=== PATIENT | female | born 1980 | race Two or more races ===

== ENCOUNTER 2017-03-13 13:23 | Inpatient (IN) | payer OTHER ==
[2017-03-13 14:00] VITALS: BMI 19.5
--- NOTE | 2017-03-13 15:45 | HP ---
COWS - Scale Resting Pulse: 2= [place] 101-120 Sweatin=Flushed/Facial Moisture Restless Observation: 3= Extraneous Movement Pupil Size: 2= Moderately Dilated Bone or Joint Aches: 2= Severe Diffuse Aches Runny Nose/ Eye Tearin= Runny Nose/Eyes GI Upset > 30mins: 2= Nausea/Diarrhea Tremor Observation: 2= Slight Tremor Visible Yawning Observation: 1= 1-2x During Session Anxiety or Irritability: 2=Irritable/Anxious Goose Flesh Skin: 3=Piloerection COWS Score: 23 Admission ROS S - HPI Chief Complaint: Withdrawal sx. Allergies/Adverse Reactions: Allergies Allergy/AdvReac Type Severity Reaction Status Date / Time No Known Allergies Allergy Verified 03/13/17 14:12 History of Present Illness: 36 y/o woman with a long hx. of heroin dependence is admitted for detox. Pt. has been in previous detox denies significant period drug free. Exam Limitations: No Limitations - Ebola screening Have you traveled outside of the country in the last 21 days: No Have you had contact with anyone from an Ebola affected area: No Have you been sick,other than usual withdrawal symptoms: No Do you have a fever: No - Review of Systems Constitutional: Diaphoresis EENT: reports: Nose Congestion Respiratory: reports: No Symptoms reported Cardiac: reports: No Symptoms Reported GI: reports: Nausea, Abdominal cramping Musculoskeletal: reports: Back Pain, Joint Pain, Muscle Pain Integumentary: reports: Sweating Neuro: reports: Tingling, Tremors Endocrine: reports: No Symptoms Reported Hematology: reports: No Symptoms Reported Psychiatric: reports: No Sypmtoms Reported Other Systems: Reviewed and Negative Patient History - Patient Medical History Hx Anemia: No Hx Asthma: Yes Hx Chronic Obstructive Pulmonary Disease (COPD): No Hx Cancer: No Hx Cardiac Disorders: No Hx Congestive Heart Failure: No Hx Hypertension: No Hx Hypercholesterolemia: No Hx Pacemaker: No HX Cerebrovascular Accident: No Hx Seizures: No Hx Dementia: No Hx Diabetes: No Hx Gastrointestinal Disorders: No Hx Liver Disease: No Hx Genitourinary Disorders: No Hx Sexually Transmitted Disorders: No Hx Renal Disease (ESRD): No Hx Thyroid Disease: No Hx Human Immunodeficiency Virus (HIV): No Hx Hepatitis C: No Hx Depression: Yes Hx Suicide Attempt: No Hx Schizophrenia: No - Patient Surgical History Past Surgical History: Yes Hx Neurologic Surgery: No Hx Cataract Extraction: No Hx Cardiac Surgery: No Hx Lung Surgery: No Hx Breast Surgery: No Hx Breast Biopsy: No Hx Abdominal Surgery: No Hx Appendectomy: No Hx Cholecystectomy: No Hx Genitourinary Surgery: No Hx Section: No Hx Orthopedic Surgery: No Other Surgical History: appendectomy at age 29,incision and drainage of abscess of right bartholin Anesthesia Reaction: No - PPD History Previous Implant?: Yes Documented Results: Negative w/proof Implanted On Prior [facility] Admission?: Yes Date: 08/21/14 Results: 0 MM PPD to be Administered?: Yes - Reproductive History Patient is a Female of Child Bearing Age (11 -55 yrs old): Yes Last Menstrual Period: 03/08/17 Patient : No - Smoking Cessation Smoking history: Current every day smoker Have you smoked in the past 12 months: Yes Aproximately how many cigarettes per day: 10 Cigars Per Day: 0 Hx Chewing Tobacco Use: No Initiated information on smoking cessation: Yes 'Breaking Loose' booklet given: 03/13/17 - Substance & Tx. History Hx Alcohol Use: No Hx Substance Use: Yes Substance Use Type: Cocaine, Heroin Hx Substance Use Treatment: Yes (Detox) - Substances Abused Heroin Route: Inhalation Frequency: Daily Amount used: 10 BAGS Age of first use: 24 Date of Last Use: 03/12/17 Cocaine Route: Inhalation Frequency: Daily Amount used: 3 BAGS Age of first use: 17 Date of Last Use: 03/11/17 Alcohol Route: Oral Frequency: Daily Amount used: Beer 2-3(6packs) Age of first use: 16 Date of Last Use: 03/12/17 Benzodiazepine (Klonopin) Route: Oral Frequency: Daily Amount used: 3mg Age of first use: 19 Date of Last Use: 03/11/17 Family Disease History - Family Disease History Family Disease History: Diabetes: Grandparent, Heart Disease: Grandparent, Mother (asthma,SC,HTN), Respiratory: Mother Admission Physical Exam S - Vital Signs Vital Signs: Vital Signs - 24 hr 03/13/17 13:55 Temperature 97 F L Pulse Rate 109 H Respiratory 20 Rate Blood Pressure 141/83 - Physical General Appearance: Yes: Tremorous, Irritable, Sweating, Anxious HEENTM: Yes: Nasal Congestion, Rhinorrhea Respiratory: Yes: Chest Non-Tender, Lungs Clear, Normal Breath Sounds Neck: Yes: Supple Breast: Yes: Breast Exam Deferred Cardiology: Yes: Regular Rhythm, Regular Rate, S1, S2 Abdominal: Yes: Normal Bowel Sounds, Non Tender, Flat, Soft Genitourinary: Yes: Within Normal Limits Back: Yes: Within Normal Limits Musculoskeletal: Yes: full range of Motion, Muscle Pain Extremities: Yes: Tremors, Other (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) Neurological: Yes: Fully Oriented, Alert Integumentary: Yes: Within Normal Limits Lymphatic: Yes: Within Normal Limits - Diagnostic (1) Bronchial asthma Current Visit: Yes Status: Acute Qualifiers: Asthma severity: mild intermittent Asthma complication type: uncomplicated Qualified Code(s): J45.20 - Mild intermittent asthma, uncomplicated (2) Opioid dependence with withdrawal Current Visit: Yes Status: Acute (3) Alcohol dependence with uncomplicated withdrawal Current Visit: Yes Status: Acute (4) Sedative, hypnotic or anxiolytic dependence with withdrawal, uncomplicated Current Visit: Yes Status: Acute (5) Cocaine dependence, uncomplicated Current Visit: Yes Status: Acute Cleared for Admission [facility] - Detox or Rehab [facility] Level of Care: Medically Managed Detox Regimen/Protocol: Methadone/Valium [facility] Breath Alcohol Content Breath Alcohol Content: 0 Urine Pregancy Test - Result Urine Test Results: Negative- NO Line Present Urine Drug Screen - Results Drug Screen Negative: No Urine Drug Screen Results: DARIO-Cocaine, OPI-Opiates, TCA-Tricyclic Antidepress
--- NOTE | 2017-03-13 16:03 | PN ---
Xital Signs Vital Signs: Vital Signs - 24 hr 03/13/17 13:55 Temperature 97 F L Pulse Rate 109 H Respiratory 20 Rate Blood Pressure 141/83 COWS - Scale Resting Pulse: 2= [place] 101-120 Sweatin=Flushed/Facial Moisture Restless Observation: 3= Extraneous Movement Pupil Size: 2= Moderately Dilated Bone or Joint Aches: 2= Severe Diffuse Aches Runny Nose/ Eye Tearin= Runny Nose/Eyes GI Upset > 30mins: 2= Nausea/Diarrhea Tremor Observation: 2= Slight Tremor Visible Yawning Observation: 1= 1-2x During Session Anxiety or Irritability: 2=Irritable/Anxious Goose Flesh Skin: 3=Piloerection COWS Score: 23 CIWA Score - CIWA Score Nausea/Vomitin Muscle Tremors: 4-Moderate,w/Arms Extend Anxiety: 4-Mod. Anxious/Guarded Agitation: 4-Moderately Restless Paroxysmal Sweats: 3 Orientation: 0-Oriented Tacttile Disturbances: 0-None Auditory Disturbances: 0-None Visual Disturbances: 0-None Headache: 0-None Present CIWA-Ar Total Score: 17 Medical/Surgical History - Patient Medical History Hx Anemia: No Hx Asthma: Yes Hx Chronic Obstructive Pulmonary Disease (COPD): No Hx Cancer: No Hx Cardiac Disorders: No Hx Congestive Heart Failure: No Hx Hypertension: No Hx Hypercholesterolemia: No Hx Pacemaker: No HX Cerebrovascular Accident: No Hx Seizures: No Hx Dementia: No Hx Diabetes: No Hx Gastrointestinal Disorders: No Hx Liver Disease: No Hx Genitourinary Disorders: No Hx Sexually Transmitted Disorders: No Hx Renal Disease (ESRD): No Hx Thyroid Disease: No Hx Human Immunodeficiency Virus (HIV): No Hx Hepatitis C: No Hx Depression: Yes Hx Suicide Attempt: No Hx Schizophrenia: No - Patient Surgical History Past Surgical History: Yes Hx Neurologic Surgery: No Hx Cataract Extraction: No Hx Cardiac Surgery: No Hx Lung Surgery: No Hx Breast Surgery: No Hx Breast Biopsy: No Hx Abdominal Surgery: No Hx Appendectomy: No Hx Cholecystectomy: No Hx Genitourinary Surgery: No Hx Section: No Hx Orthopedic Surgery: No Other Surgical History: appendectomy at age 29,incision and drainage of abscess of right bartholin Anesthesia Reaction: No - Substances Abused Heroin Route: Inhalation Frequency: Daily Amount used: 10 BAGS Age of first use: 24 Date of Last Use: 03/12/17 Cocaine Route: Inhalation Frequency: Daily Amount used: 3 BAGS Age of first use: 17 Date of Last Use: 03/11/17 Alcohol Route: Oral Frequency: Daily Amount used: Beer 2-3(6packs) Age of first use: 16 Date of Last Use: 03/12/17 Benzodiazepine (Klonopin) Route: Oral Frequency: Daily Amount used: 3mg Age of first use: 19 Date of Last Use: 03/11/17 [facility] Breath Alcohol Content Breath Alcohol Content: 0 Urine Drug Screen - Results Drug Screen Negative: No Urine Drug Screen Results: DARIO-Cocaine, OPI-Opiates, TCA-Tricyclic Antidepress Urine Pregancy Test - Result Urine Test Results: Negative- NO Line Present
[2017-03-13] MEDS ORDERED: diazePAM 5 MG TABLET PO ONE (16:08)
[2017-03-13] MEDS ORDERED: MAGNESIUM HYDROX 2400MG/30ML ORAL SUSPENSION 30 ML CUP PO PRN (16:08)
[2017-03-13] MEDS ORDERED: guaiFENesin/D-METHORPHAN HB 10 ML UNIT-DOSE CUPS PO PRN (16:08)
[2017-03-13] MEDS ORDERED: ACETAMINOPHEN 325 MG TABLET (FP) PO PRN (16:08)
[2017-03-13] MEDS ORDERED: IBUPROFEN 400 MG TABLET (FP) PO PRN (16:08)
[2017-03-13] MEDS ORDERED: MENTHOL/PHENOL 1 EACH UD MM PRN (16:08)
[2017-03-13] MEDS ORDERED: MAGNESIUM CITRATE 300 ML BOTTLE PO PRN (16:08)
[2017-03-13] MEDS ORDERED: METHADONE HCL 10 MG TABLET (FOR DETOX USE ONLY) PO ONE ×2 (16:08→23:00)
[2017-03-13] MEDS ORDERED: P-EPHED 60MG/TRIPROLIDI 2.5MG TABLET PO PRN (16:08)
[2017-03-13] MEDS ORDERED: hydrOXYzine PAMOATE 50 MG CAPSULE (FP) PO PRN (16:08)
[2017-03-13] MEDS ORDERED: LOPERAMIDE HCL 2 MG CAPSULE PO PRN (16:08)
[2017-03-13] MEDS ORDERED: ALBUTEROL SO4 6.7 GM HFA INHALER IH PRN (16:16)
[2017-03-13] MEDS: NICOTINE 21 MG/24 HOURS TOPICAL PATCH TD SCH (17:13)
[2017-03-13 18:15] LABS: URINE APPEARANCE SLCLOUDY; URINE BILIRUBIN NEGATIVE (NEGATIVE); URINE BLOOD NEGATIVE (NEGATIVE); URINE COLOR STRAW; URINE GLUCOSE (UA) NEGATIVE (NEGATIVE); URINE KETONE NEGATIVE (NEGATIVE); URINE LEUK ESTERASE NEGATIVE (NEGATIVE); URINE NITRITE NEGATIVE (NEGATIVE); URINE PROTEIN NEGATIVE (NEGATIVE); URINE UROBILINOGEN NEGATIVE E.U./dl (0.2-1.0)
[2017-03-13] MEDS ORDERED: BACITRACIN 30 GM TUBE TOPICAL OINTMENT TP SCH (22:00)
[2017-03-13] MEDS: THIAMINE HCL 100 MG TABLET (FP) PO SCH (22:07)
[2017-03-13] MEDS: diazePAM 5 MG TABLET PO SCH (22:07)
[2017-03-13] MEDS: diphenhydrAMINE HCL 50 MG CAPSULE PO PRN (22:07)
[2017-03-13] MEDS ORDERED: BACITRACIN 0.9 GM PACKET ONE (22:10)
[2017-03-14] MEDS: diazePAM 5 MG TABLET PO PRN ×3 (02:06→17:42)
[2017-03-14] MEDS: diphenhydrAMINE HCL 50 MG CAPSULE PO PRN (02:06)
[2017-03-14] MEDS: diazePAM 5 MG TABLET PO SCH ×3 (05:02→22:36)
--- NOTE | 2017-03-14 08:59 | EKG ---
Test Reason : Blood Pressure : / mmHG Vent. Rate : 107 BPM Atrial Rate : 107 BPM P-R Int : 118 ms QRS Dur : 078 ms QT Int : 328 ms P-R-T Axes : 067 058 023 degrees QTc Int : 437 ms SINUS TACHYCARDIA POSSIBLE LEFT ATRIAL ENLARGEMENT BORDERLINE ECG NO PREVIOUS ECGS AVAILABLE Confirmed by YARELY VYAS, GABI ([id number]) on 03/14/2017 8:58:27 AM Referred By: Confirmed By:GABI PRITCHETT MD
[2017-03-14] MEDS ORDERED: METHADONE HCL 10 MG TABLET (FOR DETOX USE ONLY) PO SCH (10:00)
[2017-03-14 10:01] LABS: MCH 31.2 pg (25.7-33.7); MCHC 33.6 g/dl (32.0-36.0); MEAN CELL VOLUME 92.8 fl (80-96); MEAN PLT VOLUME 8.4 fl (7.5-11.1); PLATELET COUNT 214 K/MM3 (134-434); RDW 13.8 % (11.6-15.6); WHITE BLOOD COUNT 8.6 K/mm3 (4.0-10.0)
[2017-03-14] MEDS: PRENATAL VITAMINS W/ FOLIC ACID TABLET (FP) PO SCH (10:13)
[2017-03-14] MEDS: NICOTINE 21 MG/24 HOURS TOPICAL PATCH TD SCH (10:13)
[2017-03-14] MEDS: BACITRACIN 0.9 GM PACKET TP SCH ×4 (10:14→22:36)
[2017-03-14] MEDS: QUEtiapine FUMARATE 50 MG TABLET PO SCH ×2 (10:18→22:26)
[2017-03-14 10:21] LABS: CALCIUM 8.6 mg/dL (8.5-10.1)
[2017-03-14] MEDS: HALOPERIDOL 5 MG TABLET (FP) PO PRN (10:21)
[2017-03-14] MEDS: NICOTINE POLACRILEX 2 MG GUM BC PRN (10:22)
[2017-03-14 10:27] LABS: ALBUMIN 3.5 g/dl (3.4-5.0); ALK PHOS 76 U/L (45-117); ANION GAP 7 (8-16); BILIRUBIN,TOTAL 0.3 mg/dL (0.2-1.0); CO2 30 mmol/L (21-32); CREATININE 0.6 mg/dL (0.55-1.02); GLUCOSE,RANDOM 71 mg/dL (74-106); SGOT/AST 11 U/L (15-37); SGPT/ALT 18 U/L (12-78); TOT PROT 6.3 g/dl (6.4-8.2)
--- NOTE | 2017-03-14 10:54 | PN ---
BHS COWS - Scale Resting Pulse: 1= [place] 81-100 Sweatin=Flushed/Facial Moisture Restless Observation: 1= Difficult to Sit Still Pupil Size: 1= Pupils >than Normal Bone or Joint Aches: 2= Severe Diffuse Aches Runny Nose/ Eye Tearin= Nasal Congestion GI Upset > 30mins: 2= Nausea/Diarrhea Tremor Observation of Outstretched Hands: 1= Tremor [place], Not Seen Yawning Observation: 0= None Anxiety or Irritability: 2=Irritable/Anxious Goose Flesh Skin: 0=Smooth Skin COWS Score: 13 BHS Progress Note (SOAP) Subjective: interrupted sleep, sweats , shakes , bidyaches, lbp, nausea, siarrhea, itchy rash over face chest , back Objective: 03/14/17 10:50 Vital Signs Temperature 98.1 F 03/14/17 09:52 Pulse Rate 86 03/14/17 09:52 Respiratory Rate 18 03/14/17 09:52 Blood Pressure 131/70 03/14/17 09:52 O2 Sat by Pulse Oximetry (%) Laboratory Tests 03/13/17 03/14/17 03/14/17 18:00 07:00 07:00 WBC 8.6 RBC 4.00 Hgb 12.5 Hct 37.1 MCV 92.8 MCHC 33.6 RDW 13.8 Plt Count 214 MPV 8.4 Sodium 140 Potassium 4.1 Chloride 103 Carbon Dioxide 30 Anion Gap 7 L BUN 13 Creatinine 0.6 D Creat Clearance w eGFR > 60 Random Glucose 71 L D Calcium 8.6 Total Bilirubin 0.3 D AST 11 L D ALT 18 Alkaline Phosphatase 76 D Total Protein 6.3 L Albumin 3.5 Urine Color Straw Urine Appearance Slcloudy Urine pH 5.0 Ur Specific [place] 1.025 Urine Protein Negative Urine Glucose (UA) Negative Urine Ketones Negative Urine Blood Negative Urine Nitrite Negative Urine Bilirubin Negative Urine Urobilinogen Negative Ur Leukocyte Esterase Negative pt aox3 in nad ambualting skin papules over face, chest , back Assessment: 03/14/17 10:51 withdrawal sx's rash Plan: cont. detox increase fluids vistaril 50mg q6h check rpr zofran prn flexeril 10mg tid /prn
--- NOTE | 2017-03-14 11:28 | CONSULT ---
[facility] Psychiatric Consult - Data Date of interview: 03/14/17 Admission source: [facility] Identifying data: This is 36 years old female with history of MDD, intoxicated with: Alcohol, Cocaine, Opioids, PCP, Xanax Substance Abuse History: - Smoking Cessation. Smoking history: Current every day smoker. Have you smoked in the past 12 months: Yes. Aproximately how many cigarettes per day: 10. Cigars Per Day: 0. Hx Chewing Tobacco Use: No. Initiated information on smoking cessation: Yes. 'Breaking Loose' booklet given : 03/13/17. - Substance & Tx. History. Hx Alcohol Use: No. Hx Substance Use: Yes. Substance Use Type: Cocaine, Heroin. Hx Substance Use Treatment: Yes ( Detox). - Substances Abused. Heroin. Route: Inhalation. Frequency: Daily. Amount used: 10 BAGS. Age of first use: 24. Date of Last Use: . Cocaine. Route: Inhalation. Frequency: Daily. Amount used: 3 BAGS. Age of first use: 17. Date of Last Use: 03/11/17. Alcohol. Route: Oral. Frequency: Daily. Amount used: Beer 2-3(6packs). Age of first use: 16. Date of Last Use: 03/12/17. Benzodiazepine (Klonopin). Route: Oral. Frequency: Daily. Amount used: 3mg. Age of first use: 19. Date of Last Use: 03/11/17 Medical History: Asthma, Psychiatric History: Patioent reprots history of MDD, Panic Disorder, reports taking prior to admission: Haldol 5mg poqd. Seroquel 50mg po bid. Remeron 45mg po qhs. Buspar 5mg po tid. Wellbutrin xl 300mg Physical/Sexual Abuse/Trauma History: Unclear Additional Comment: Haldol 5mg poqd. Seroquel 50mg po bid. Remeron 45mg po qhs. Buspar 5mg po tid. Wellbutrin xl 300mg Mental Status Exam - Mental Status Exam Alert and Oriented to: Person Cognitive Function: Fair Patient Appearance: Unkempt Mood: Sad Affect: Mood Congruent Patient Behavior: Cooperative Speech Pattern: Appropriate Voice Loudness: Mildly Soft/Quiet Thought Process: Goal Oriented Thought Disorder: Being Controlled Hallucinations: Denies Suicidal Ideation: Denies Homicidal Ideation: Denies Insight/Judgement: Fair Sleep: Difficulty falling asleep Appetite: Weight loss Muscle strength/Tone: Normal Gait/Station: Normal Additional Comments: Haldol 5mg poqd. Seroquel 50mg po bid. Remeron 45mg po qhs. Buspar 5mg po tid. Wellbutrin xl 300mg Psychiatric Findings - Problem List ([place] 1, 2,3) (1) Alcohol dependence with uncomplicated withdrawal Current Visit: Yes Status: Acute (2) Cocaine dependence, uncomplicated Current Visit: Yes Status: Acute (3) Opioid dependence with withdrawal Current Visit: Yes Status: Acute (4) Sedative, hypnotic or anxiolytic dependence with withdrawal, uncomplicated Current Visit: Yes Status: Acute (5) Benzodiazepine abuse Current Visit: No Status: Chronic (6) Cocaine dependence Current Visit: No Status: Chronic (7) MDD (major depressive disorder) Current Visit: No Status: Chronic (8) Nicotine dependence Current Visit: No Status: Chronic (9) Opioid dependence Current Visit: No Status: Chronic (10) PCP dependence Current Visit: No Status: Chronic (11) Panic disorder with agoraphobia Current Visit: No Status: Chronic - Initial Treatment Plan Initial Treatment Plan: Haldol 5mg poqd. Seroquel 50mg po bid. Remeron 45mg po qhs. Buspar 5mg po tid. Wellbutrin xl 300mg
[2017-03-14] MEDS ORDERED: HYDROCORTISONE 1% TOPICAL CREAM 30 GM TUBE TP PRN (11:42)
[2017-03-14] MEDS: CYCLOBENZAPRINE HCL 10 MG TABLET (FP) PO PRN (12:04)
[2017-03-14] MEDS: hydrOXYzine PAMOATE 50 MG CAPSULE (FP) PO SCH ×4 (12:05→23:12)
[2017-03-14] MEDS: busPIRone HCL 5 MG TABLET PO SCH ×2 (15:19→22:25)
[2017-03-14] MEDS: MAG HYDROX/AL HYDROX/SIMETH 30 ML UNIT-DOSE CUP PO PRN (21:32)
[2017-03-14] MEDS: MIRTAZAPINE 15 MG TABLET (FP) PO SCH (22:26)
[2017-03-14] MEDS: THIAMINE HCL 100 MG TABLET (FP) PO SCH (22:26)
[2017-03-15] MEDS: diazePAM 5 MG TABLET PO PRN ×2 (03:10→17:50)
[2017-03-15] MEDS: hydrOXYzine PAMOATE 50 MG CAPSULE (FP) PO SCH ×6 (03:11→23:07)
[2017-03-15] MEDS: busPIRone HCL 5 MG TABLET PO SCH ×3 (06:56→22:12)
[2017-03-15] MEDS: QUEtiapine FUMARATE 50 MG TABLET PO SCH ×2 (10:17→22:12)
[2017-03-15] MEDS: PRENATAL VITAMINS W/ FOLIC ACID TABLET (FP) PO SCH (10:17)
[2017-03-15] MEDS: BACITRACIN 0.9 GM PACKET TP SCH ×4 (10:17→22:14)
[2017-03-15] MEDS: diazePAM 5 MG TABLET PO SCH ×2 (10:17→22:14)
[2017-03-15] MEDS: METHADONE HCL 5 MG TABLET (FOR DETOX USE ONLY) PO SCH (10:17)
[2017-03-15] MEDS: NICOTINE 21 MG/24 HOURS TOPICAL PATCH TD SCH (10:18)
[2017-03-15] MEDS: CYCLOBENZAPRINE HCL 10 MG TABLET (FP) PO PRN ×2 (10:21→17:50)
[2017-03-15] MEDS: HALOPERIDOL 5 MG TABLET (FP) PO PRN (10:21)
[2017-03-15] MEDS: MAG HYDROX/AL HYDROX/SIMETH 30 ML UNIT-DOSE CUP PO PRN ×2 (10:23→17:52)
[2017-03-15 10:34] LABS: HIV 1 & 2 AB NEGATIVE; HIV 1 AGp24 NEGATIVE
--- NOTE | 2017-03-15 10:47 | PN ---
BHS COWS - Scale Resting Pulse: 1= [place] 81-100 Sweatin=Flushed/Facial Moisture Restless Observation: 1= Difficult to Sit Still Pupil Size: 0= Normal to Room Light Bone or Joint Aches: 1= Mild Discomfort Runny Nose/ Eye Tearin= Nasal Congestion GI Upset > 30mins: 1= Stomach Cramp Tremor Observation of Outstretched Hands: 2= Slight Tremor Visible Yawning Observation: 1= 1-2x During Session Anxiety or Irritability: 2=Irritable/Anxious Goose Flesh Skin: 0=Smooth Skin COWS Score: 12 BHS Progress Note (SOAP) Subjective: agitation anxiety stomach cramp leg cramp interrupted sleep heart burn Objective: 03/15/17 10:44 Vital Signs Temperature 97.9 F 03/15/17 10:00 Pulse Rate 90 03/15/17 10:00 Respiratory Rate 16 03/15/17 10:00 Blood Pressure 112/69 03/15/17 10:00 O2 Sat by Pulse Oximetry (%) Laboratory Tests 03/13/17 03/14/17 03/14/17 18:00 07:00 07:00 WBC 8.6 RBC 4.00 Hgb 12.5 Hct 37.1 MCV 92.8 MCHC 33.6 RDW 13.8 Plt Count 214 MPV 8.4 Sodium 140 Potassium 4.1 Chloride 103 Carbon Dioxide 30 Anion Gap 7 L BUN 13 Creatinine 0.6 D Creat Clearance w eGFR > 60 Random Glucose 71 L D Calcium 8.6 Total Bilirubin 0.3 D AST 11 L D ALT 18 Alkaline Phosphatase 76 D Total Protein 6.3 L Albumin 3.5 Urine Color Straw Urine Appearance Slcloudy Urine pH 5.0 Ur Specific [place] 1.025 Urine Protein Negative Urine Glucose (UA) Negative Urine Ketones Negative Urine Blood Negative Urine Nitrite Negative Urine Bilirubin Negative Urine Urobilinogen Negative Ur Leukocyte Esterase Negative RPR Titer HIV 1&2 Antibody Screen HIV P24 Antigen 03/14/17 03/15/17 07:00 06:00 WBC RBC Hgb Hct MCV MCHC RDW Plt Count MPV Sodium Potassium Chloride Carbon Dioxide Anion Gap BUN Creatinine Creat Clearance w eGFR Random Glucose Calcium Total Bilirubin AST ALT Alkaline Phosphatase Total Protein Albumin Urine Color Urine Appearance Urine pH Ur Specific [place] Urine Protein Urine Glucose (UA) Urine Ketones Urine Blood Urine Nitrite Urine Bilirubin Urine Urobilinogen Ur Leukocyte Esterase RPR Titer Nonreactive HIV 1&2 Antibody Screen Negative HIV P24 Antigen Negative awake/alert ambulating no acute distress Assessment: 03/15/17 10:46 withdrawal sx Plan: continue detox increase fluids flexiril prn motrin prn zofran prn zantac bid
[2017-03-15] MEDS: RANITIDINE HCL 150 MG TABLET (FP) PO SCH ×2 (11:30→22:12)
[2017-03-15] MEDS: NICOTINE POLACRILEX 2 MG GUM BC PRN ×2 (17:52→22:15)
[2017-03-15] MEDS: THIAMINE HCL 100 MG TABLET (FP) PO SCH (22:11)
[2017-03-15] MEDS: MIRTAZAPINE 15 MG TABLET (FP) PO SCH (22:11)
[2017-03-16] MEDS: diazePAM 5 MG TABLET PO PRN ×3 (00:37→12:37)
[2017-03-16] MEDS: hydrOXYzine PAMOATE 50 MG CAPSULE (FP) PO SCH ×6 (03:15→22:08)
[2017-03-16] MEDS: busPIRone HCL 5 MG TABLET PO SCH ×3 (05:50→22:08)
[2017-03-16] MEDS: NICOTINE POLACRILEX 2 MG GUM BC PRN ×4 (07:37→22:12)
--- NOTE | 2017-03-16 09:53 | PN ---
BHS Progress Note (SOAP) Subjective: interrupted sleep, sweats, stomach ,leg pains , Objective: 03/16/17 09:50 Vital Signs Temperature 98.2 F 03/16/17 06:00 Pulse Rate 86 03/16/17 06:00 Respiratory Rate 16 03/16/17 06:00 Blood Pressure 108/68 03/16/17 06:00 O2 Sat by Pulse Oximetry (%) Laboratory Tests 03/13/17 03/14/17 03/14/17 18:00 07:00 07:00 WBC 8.6 RBC 4.00 Hgb 12.5 Hct 37.1 MCV 92.8 MCHC 33.6 RDW 13.8 Plt Count 214 MPV 8.4 Sodium 140 Potassium 4.1 Chloride 103 Carbon Dioxide 30 Anion Gap 7 L BUN 13 Creatinine 0.6 D Creat Clearance w eGFR > 60 Random Glucose 71 L D Calcium 8.6 Total Bilirubin 0.3 D AST 11 L D ALT 18 Alkaline Phosphatase 76 D Total Protein 6.3 L Albumin 3.5 Urine Color Straw Urine Appearance Slcloudy Urine pH 5.0 Ur Specific [place] 1.025 Urine Protein Negative Urine Glucose (UA) Negative Urine Ketones Negative Urine Blood Negative Urine Nitrite Negative Urine Bilirubin Negative Urine Urobilinogen Negative Ur Leukocyte Esterase Negative RPR Titer HIV 1&2 Antibody Screen HIV P24 Antigen 03/14/17 03/15/17 07:00 06:00 WBC RBC Hgb Hct MCV MCHC RDW Plt Count MPV Sodium Potassium Chloride Carbon Dioxide Anion Gap BUN Creatinine Creat Clearance w eGFR Random Glucose Calcium Total Bilirubin AST ALT Alkaline Phosphatase Total Protein Albumin Urine Color Urine Appearance Urine pH Ur Specific [place] Urine Protein Urine Glucose (UA) Urine Ketones Urine Blood Urine Nitrite Urine Bilirubin Urine Urobilinogen Ur Leukocyte Esterase RPR Titer Nonreactive HIV 1&2 Antibody Screen Negative HIV P24 Antigen Negative pt aox3 in nad ambulating 03/16/17 09:52 abd- hyperactive bs, no mass , no rebound ,diffuse tenderenss mild Assessment: 03/16/17 09:50 withdrawal sx's Plan: cont. detox increase fluids [place] prn
[2017-03-16] MEDS: ONDANSETRON *ODT* 4 MG TABLET SL PRN (10:11)
[2017-03-16] MEDS: METHADONE HCL 5 MG TABLET (FOR DETOX USE ONLY) PO SCH (10:11)
[2017-03-16] MEDS: diazePAM 5 MG TABLET PO SCH ×2 (10:11→22:08)
[2017-03-16] MEDS: BACITRACIN 0.9 GM PACKET TP SCH ×4 (10:11→22:08)
[2017-03-16] MEDS: PRENATAL VITAMINS W/ FOLIC ACID TABLET (FP) PO SCH (10:11)
[2017-03-16] MEDS: RANITIDINE HCL 150 MG TABLET (FP) PO SCH ×2 (10:12→22:08)
[2017-03-16] MEDS: CYCLOBENZAPRINE HCL 10 MG TABLET (FP) PO PRN ×2 (10:12→19:56)
[2017-03-16] MEDS: QUEtiapine FUMARATE 50 MG TABLET PO SCH ×2 (10:12→22:08)
[2017-03-16] MEDS: HALOPERIDOL 5 MG TABLET (FP) PO PRN (10:12)
[2017-03-16] MEDS: NICOTINE 21 MG/24 HOURS TOPICAL PATCH TD SCH (10:13)
[2017-03-16] MEDS: THIAMINE HCL 100 MG TABLET (FP) PO SCH (22:08)
[2017-03-16] MEDS: MIRTAZAPINE 15 MG TABLET (FP) PO SCH (22:08)
[2017-03-16] MEDS: HALOPERIDOL 5 MG TABLET (FP) PO SCH (22:08)
[2017-03-17] MEDS: hydrOXYzine PAMOATE 50 MG CAPSULE (FP) PO SCH ×6 (03:05→22:34)
[2017-03-17] MEDS: MAG HYDROX/AL HYDROX/SIMETH 30 ML UNIT-DOSE CUP PO PRN ×2 (03:05→13:16)
[2017-03-17] MEDS: busPIRone HCL 5 MG TABLET PO SCH ×3 (05:56→22:31)
--- NOTE | 2017-03-17 08:10 | PN ---
S Progress Note (SOAP) Subjective: alert,no complaint Objective: 03/17/17 08:09 Vital Signs Temperature 98.2 F 03/17/17 06:49 Pulse Rate 96 H 03/17/17 06:49 Respiratory Rate 18 03/17/17 06:49 Blood Pressure 112/65 03/17/17 06:49 O2 Sat by Pulse Oximetry (%) Assessment: 03/17/17 08:09 detox completed,no withdrawal symptom Plan: discharge today,follow up with after care program as arrangement
--- NOTE | 2017-03-17 08:11 | DS ---
[facility] Detox Discharge Summary Admission Date: 03/13/17 Discharge Date: 03/17/17 - History Present History: Alcohol Dependence - Physical Exam Results Vital Signs: Vital Signs Temperature 98.2 F 03/17/17 06:49 Pulse Rate 96 H 03/17/17 06:49 Respiratory Rate 18 03/17/17 06:49 Blood Pressure 112/65 03/17/17 06:49 O2 Sat by Pulse Oximetry (%) - Medication Discharge Medications: Ambulatory Orders Albuterol Sulfate Inhaler - [Ventolin HFA Inhaler -] 2 inh PO Q4H PRN 08/19/14 Alprazolam [Xanax -] 2 mg PO BID 08/19/14 Bupropion HCl [Wellbutrin Xl -] 300 mg PO DAILY #30 tab.sr.24h 08/20/14 Sertraline HCl [Zoloft -] 200 mg PO DAILY #60 tablet 08/20/14 Sulfamethoxazole/Trimethoprim [Bactrim Ds -] 1 tab PO BID 04/30/15 Bupropion HCl [Wellbutrin Xl -] 300 mg PO DAILY #30 tab.sr.24h 05/01/15 Sertraline HCl [Zoloft -] 200 mg PO DAILY #30 tablet 05/01/15 Buspirone HCl [Buspar -] 5 mg PO TID 03/13/17 Mirtazapine [Remeron [DO NOT STOCK]] 45 mg PO HS 03/13/17 Quetiapine Fumarate [Seroquel -] 50 mg PO BID 03/13/17 Bupropion HCl [Wellbutrin Xl -] 300 mg PO DAILY #30 tab 03/14/17 Buspirone HCl [Buspar -] 5 mg PO TID #90 tablet 03/14/17 Haloperidol [Haldol -] 5 mg PO DAILY PRN #30 tablet 03/14/17 Mirtazapine [Remeron -] 45 mg PO HS #30 tablet 03/14/17 Quetiapine Fumarate [Seroquel -] 50 mg PO BID #60 tablet 03/14/17
--- NOTE | 2017-03-17 08:20 | PN ---
S Progress Note Note: addendum patient still on medication with withdrawal symptom,continue detox, discharge in am
[2017-03-17] MEDS ORDERED: METHADONE HCL 10 MG TABLET (FOR DETOX USE ONLY) PO SCH (10:00)
[2017-03-17] MEDS ORDERED: diazePAM 5 MG TABLET PO SCH (10:00)
[2017-03-17] MEDS: HALOPERIDOL 5 MG TABLET (FP) PO SCH ×2 (10:19→22:31)
[2017-03-17] MEDS: QUEtiapine FUMARATE 50 MG TABLET PO SCH ×2 (10:19→22:33)
[2017-03-17] MEDS: CYCLOBENZAPRINE HCL 10 MG TABLET (FP) PO PRN ×4 (10:19→22:31)
[2017-03-17] MEDS: ONDANSETRON *ODT* 4 MG TABLET SL PRN (10:19)
[2017-03-17] MEDS: RANITIDINE HCL 150 MG TABLET (FP) PO SCH ×2 (10:19→22:33)
[2017-03-17] MEDS: PRENATAL VITAMINS W/ FOLIC ACID TABLET (FP) PO SCH (10:19)
[2017-03-17] MEDS: BACITRACIN 0.9 GM PACKET TP SCH ×4 (10:20→22:31)
[2017-03-17] MEDS: NICOTINE 21 MG/24 HOURS TOPICAL PATCH TD SCH (10:20)
[2017-03-17] MEDS: NICOTINE POLACRILEX 2 MG GUM BC PRN ×2 (17:39→22:37)
[2017-03-17] MEDS: MIRTAZAPINE 15 MG TABLET (FP) PO SCH (22:32)
[2017-03-17] MEDS: THIAMINE HCL 100 MG TABLET (FP) PO SCH (22:33)
[2017-03-18] MEDS: hydrOXYzine PAMOATE 50 MG CAPSULE (FP) PO SCH ×2 (03:30→07:30)
[2017-03-18] MEDS: busPIRone HCL 5 MG TABLET PO SCH (05:35)
[2017-03-18] MEDS: CYCLOBENZAPRINE HCL 10 MG TABLET (FP) PO PRN (05:40)
[2017-03-18] MEDS ORDERED: METHADONE HCL 5 MG TABLET (FOR DETOX USE ONLY) PO SCH (06:00)
[2017-03-18 06:40] VITALS: BP 111/71; PULSE 85; TEMP 97.2
--- NOTE | 2017-03-18 08:11 | PN ---
S Progress Note (SOAP) Subjective: ALERT,NO COMPLAINT Objective: 03/18/17 08:10 Vital Signs Temperature 97.2 F L 03/18/17 06:00 Pulse Rate 85 03/18/17 06:00 Respiratory Rate 16 03/18/17 06:00 Blood Pressure 111/71 03/18/17 06:00 O2 Sat by Pulse Oximetry (%) Assessment: 03/18/17 08:10 DETOX COMPLETED,NO WITHDRAWAL SYMPTOM Plan: DISCHARGE TODAY,FOLLOW UP WITH AFTER CARE PROGRAM A ARRANGEMENT
--- NOTE | 2017-03-18 08:14 | DS ---
[facility] Detox Discharge Summary Admission Date: 03/13/17 Discharge Date: 03/18/17 - History Present History: Alcohol Dependence, Cocaine Dependence, Opioid Dependence, Sedative Dependence Additional Comments: FOLLOW UP WITH AFTER CARE PROGRAM ARRANGEMENT AND PMD FOR MEDICAL PROBLEM Pertinent Past History: ASTHMA - Physical Exam Results Vital Signs: Vital Signs Temperature 97.2 F L 03/18/17 06:00 Pulse Rate 85 03/18/17 06:00 Respiratory Rate 16 03/18/17 06:00 Blood Pressure 111/71 03/18/17 06:00 O2 Sat by Pulse Oximetry (%) - Treatment Hospital Course: Detox Protocol Followed, Detoxed Safely, Responded well, Discharged Condition Good Patient has Accepted a Rehab Referral to: [facility] - Medication Discharge Medications: Ambulatory Orders Albuterol Sulfate Inhaler - [Ventolin HFA Inhaler -] 2 inh PO Q4H PRN 08/19/14 Alprazolam [Xanax -] 2 mg PO BID 08/19/14 Bupropion HCl [Wellbutrin Xl -] 300 mg PO DAILY #30 tab.sr.24h 08/20/14 Sertraline HCl [Zoloft -] 200 mg PO DAILY #60 tablet 08/20/14 Sulfamethoxazole/Trimethoprim [Bactrim Ds -] 1 tab PO BID 04/30/15 Bupropion HCl [Wellbutrin Xl -] 300 mg PO DAILY #30 tab.sr.24h 05/01/15 Sertraline HCl [Zoloft -] 200 mg PO DAILY #30 tablet 05/01/15 Buspirone HCl [Buspar -] 5 mg PO TID 03/13/17 Mirtazapine [Remeron [DO NOT STOCK]] 45 mg PO HS 03/13/17 Quetiapine Fumarate [Seroquel -] 50 mg PO BID 03/13/17 Bupropion HCl [Wellbutrin Xl -] 300 mg PO DAILY #30 tab 03/14/17 Buspirone HCl [Buspar -] 5 mg PO TID #90 tablet 03/14/17 Haloperidol [Haldol -] 5 mg PO DAILY PRN #30 tablet 03/14/17 Mirtazapine [Remeron -] 45 mg PO HS #30 tablet 03/14/17 Quetiapine Fumarate [Seroquel -] 50 mg PO BID #60 tablet 03/14/17 - Diagnosis (1) Alcohol dependence with uncomplicated withdrawal Status: Acute (2) Cocaine dependence, uncomplicated Status: Acute (3) Opioid dependence with withdrawal Status: Acute (4) Sedative, hypnotic or anxiolytic dependence with withdrawal, uncomplicated Status: Acute (5) Bronchial asthma Status: Acute Qualifiers: Asthma severity: mild intermittent Asthma complication type: uncomplicated Qualified Code(s): J45.20 - Mild intermittent asthma, uncomplicated - AMA Did Patient Leave Against Medical Advice: No
== END 2017-03-18 07:35 | disposition home or self-care (01) | DRG 773 ==
LOC: YASAS 13:23 → Y6N 14:31
PROVIDERS: ADMIT Internal Medicine; ATTEND Internal Medicine Addiction Medicine
PROC: HZ2ZZZZ Detoxification Services for Substance Abuse Treatment (ICD-10-PCS; principal; 2017-03-18)
DX: F11.23 Opioid dependence with withdrawal (principal); F13.230 Sedative, hypnotic or anxiolytic dependence with withdrawal, uncomplicated; F10.230 Alcohol dependence with withdrawal, uncomplicated; F14.20 Cocaine dependence, uncomplicated; F16.10 Hallucinogen abuse, uncomplicated; F17.210 Nicotine dependence, cigarettes, uncomplicated; F33.9 Major depressive disorder, recurrent, unspecified; F40.01 Agoraphobia with panic disorder
CPT/HCPCS: 36415; 80053; 81003; 85027; 86593; 87389; 93005; 93010

== ENCOUNTER 2017-08-08 19:21 | Inpatient (IN) | payer OTHER ==
[2017-08-08 22:14] VITALS: BMI 21.6
[2017-08-08] MEDS ORDERED: METHADONE HCL 10 MG TABLET (FOR DETOX USE ONLY) PO ONE ×2 (23:00→23:21)
--- NOTE | 2017-08-08 23:16 | HP ---
COWS - Scale Resting Pulse: 0= [place] 80 or Below Sweatin= Chills/Flushing Restless Observation: 3= Extraneous Movement Pupil Size: 0= Normal to Room Light Bone or Joint Aches: 2= Severe Diffuse Aches Runny Nose/ Eye Tearin= Runny Nose/Eyes GI Upset > 30mins: 3= Vomiting/Diarrhea Tremor Observation: 2= Slight Tremor Visible Yawning Observation: 0= None Anxiety or Irritability: 2=Irritable/Anxious Goose Flesh Skin: 0=Smooth Skin COWS Score: 15 CIWA Score - CIWA Score Nausea/Vomitin Muscle Tremors: 4-Moderate,w/Arms Extend Anxiety: 4-Mod. Anxious/Guarded Agitation: 4-Moderately Restless Paroxysmal Sweats: 1-Minimal Palms Moist Orientation: 0-Oriented Tacttile Disturbances: 0-None Auditory Disturbances: 0-None Visual Disturbances: 0-None Headache: 1-Very Mild CIWA-Ar Total Score: 16 Admission ROS BHS - HPI Chief Complaint: WITHDRAWAL SX Allergies/Adverse Reactions: Allergies Allergy/AdvReac Type Severity Reaction Status Date / Time No Known Allergies Allergy Verified 08/08/17 22:44 History of Present Illness: 37 YEARS OLD FEMALE WITH LONG HISTORY OF HEROIN KLONOPINE, COCAINE NICOTINE DEPENDENCE HAS ASTHMA AND DEPRESSION IS ADMITTED TO DETOX Exam Limitations: No Limitations - Ebola screening Have you traveled outside of the country in the last 21 days: No Have you had contact with anyone from an Ebola affected area: No Have you been sick,other than usual withdrawal symptoms: No Do you have a fever: No - Review of Systems Constitutional: Loss of Appetite, Changes in sleep, Unintentional Wgt. Loss, Unexplained wgt Loss EENT: reports: No Symptoms Reported Respiratory: reports: No Symptoms reported Cardiac: reports: No Symptoms Reported GI: reports: Constipated, Nausea, Poor Appetite, Poor Fluid Intake, Vomiting, Indigestion, Abdominal cramping : reports: No Symptoms Reported Musculoskeletal: reports: Back Pain, Joint Pain, Muscle Pain, Neck Pain Integumentary: reports: Change in Color (LEFT KNEE SKIN ABRASION FROM FALL TREATED AT ER) Neuro: reports: Tremors Endocrine: reports: No Symptoms Reported Hematology: reports: No Symptoms Reported Psychiatric: reports: Judgement Intact, Orientated x3, Anxious, Depressed Other Systems: Reviewed and Negative Patient History - Patient Medical History Hx Anemia: No Hx Asthma: Yes Hx Chronic Obstructive Pulmonary Disease (COPD): No Hx Cancer: No Hx Cardiac Disorders: No Hx Congestive Heart Failure: No Hx Hypertension: No Hx Hypercholesterolemia: No Hx Pacemaker: No HX Cerebrovascular Accident: No Hx Seizures: No Hx Dementia: No Hx Diabetes: No Hx Gastrointestinal Disorders: No Hx Liver Disease: No Hx Genitourinary Disorders: No Hx Sexually Transmitted Disorders: No Hx Renal Disease (ESRD): No Hx Thyroid Disease: No Hx Human Immunodeficiency Virus (HIV): No Hx Hepatitis C: No Hx Depression: Yes Hx Suicide Attempt: No Hx Bipolar Disorder: No Hx Schizophrenia: No - Patient Surgical History Past Surgical History: Yes Hx Neurologic Surgery: No Hx Cataract Extraction: No Hx Cardiac Surgery: No Hx Lung Surgery: No Hx Breast Surgery: No Hx Breast Biopsy: No Hx Abdominal Surgery: No Hx Appendectomy: No Hx Cholecystectomy: No Hx Genitourinary Surgery: No Hx Section: Yes (2009) Hx Orthopedic Surgery: No Hx Hysterectomy: No Other Surgical History: appendectomy at age 29,incision and drainage of abscess of right bartholin Anesthesia Reaction: No - PPD History Previous Implant?: Yes Documented Results: Negative w/proof Implanted On Prior [facility] Admission?: Yes Date: 03/15/17 Results: 0 MM PPD to be Administered?: No - Reproductive History Patient is a Female of Child Bearing Age (11 -55 yrs old): Yes Last Menstrual Period: 07/16/17 Patient : No - Smoking Cessation Smoking history: Current every day smoker Have you smoked in the past 12 months: Yes Aproximately how many cigarettes per day: 10 Cigars Per Day: 0 Hx Chewing Tobacco Use: No Initiated information on smoking cessation: Yes 'Breaking Loose' booklet given: 08/08/17 - Substance & Tx. History Hx Alcohol Use: No Hx Substance Use: Yes Substance Use Type: Cocaine, Heroin, Tranquilizers Hx Substance Use Treatment: Yes (03/13-03/18/17 [facility]) - Substances Abused Heroin Route: Inhalation Frequency: Daily Amount used: 15 BAGS Age of first use: 32 Date of Last Use: 08/08/17 Crack Route: Smoking Frequency: Daily Amount used: 4 BAGS Age of first use: 36 Date of Last Use: 08/07/17 Benzodiazepine (Klonopin) Route: Oral Frequency: Daily Amount used: 6 MG Age of first use: 32 Date of Last Use: 08/08/17 Family Disease History - Family Disease History Family Disease History: Diabetes: Grandparent (), Heart Disease: Grandparent, Mother (asthma,MD,HTN/), Respiratory: Mother, Other: Father (/HIV), Mother Admission Physical Exam S - Vital Signs Vital Signs: Vital Signs - 24 hr 08/08/17 22:11 Temperature 96.6 F L Pulse Rate 72 Respiratory 20 Rate Blood Pressure 153/91 - Physical General Appearance: Yes: Appropriately Dressed, Moderate Distress, Thin, Tremorous, Irritable, Sweating, Anxious HEENTM: Yes: Hearing grossly Normal, Normal ENT Inspection, Normocephalic, Normal Voice Respiratory: Yes: Chest Non-Tender, Lungs Clear, Normal Breath Sounds, No Respiratory Distress, No Accessory Muscle Use Neck: Yes: Supple, Trachea in good position Breast: Yes: Breasts Symetrical Cardiology: Yes: Regular Rhythm, Regular Rate, S1, S2 Abdominal: Yes: Non Tender, Soft Genitourinary: Yes: Within Normal Limits Back: Yes: Normal Inspection Musculoskeletal: Yes: full range of Motion, Gait Steady, Back pain, Muscle Pain Extremities: Yes: Normal Range of Motion, Non-Tender, Tremors, Other (RIGHT AND LEFT KNEES SKIN ABRASION) Neurological: Yes: Fully Oriented, Alert, Motor Strength 5/5, Normal Response, Depressed Affect Integumentary: Yes: Warm, Other (SKIN ABRASION) Lymphatic: Yes: Within Normal Limits - Diagnostic (1) Opioid dependence with withdrawal Current Visit: Yes Status: Acute (2) Sedative, hypnotic or anxiolytic dependence with withdrawal, uncomplicated Current Visit: Yes Status: Acute (3) Nicotine dependence Current Visit: Yes Status: Acute Qualifiers: Nicotine product type: cigarettes Substance use status: in withdrawal Qualified Code(s): F17.213 - Nicotine dependence, cigarettes, with withdrawal; F17.213 - Nicotine dependence, cigarettes, with withdrawal (4) Weight loss Current Visit: Yes Status: Acute (5) GERD (gastroesophageal reflux disease) Current Visit: Yes Status: Chronic Qualifiers: Esophagitis presence: without esophagitis Qualified Code(s): K21.9 - Gastro-esophageal reflux disease without esophagitis; K21.9 - Gastro- esophageal reflux disease without esophagitis; K21.9 - Gastro-esophageal reflux disease without esophagitis Cleared for Admission S - Detox or Rehab [facility] Level of Care: Medically Managed Detox Regimen/Protocol: Methadone/Valium S Breath Alcohol Content Breath Alcohol Content: 0 Urine Pregancy Test - Result Urine Test Results: Negative- NO Line Present Urine Drug Screen - Results Drug Screen Negative: No Urine Drug Screen Results: DARIO-Cocaine, OPI-Opiates, PCP-Phencyclidine, BZO- Benzodiazepines
[2017-08-08] MEDS ORDERED: LOPERAMIDE HCL 2 MG CAPSULE PO PRN (23:21)
[2017-08-08] MEDS ORDERED: MAGNESIUM HYDROX 2400MG/30ML ORAL SUSPENSION 30 ML CUP PO PRN (23:21)
[2017-08-08] MEDS ORDERED: diazePAM 5 MG TABLET PO ONE (23:21)
[2017-08-08] MEDS ORDERED: ACETAMINOPHEN 325 MG TABLET (FP) PO PRN (23:21)
[2017-08-08] MEDS ORDERED: P-EPHED 60MG/TRIPROLIDI 2.5MG TABLET PO PRN (23:21)
[2017-08-08] MEDS ORDERED: MAGNESIUM CITRATE 300 ML BOTTLE PO PRN (23:21)
[2017-08-08] MEDS ORDERED: MENTHOL/PHENOL 1 EACH UD MM PRN (23:21)
[2017-08-08] MEDS ORDERED: guaiFENesin/D-METHORPHAN HB 10 ML UNIT-DOSE CUPS PO PRN (23:21)
[2017-08-08] MEDS ORDERED: METHOCARBAMOL 500 MG TABLET PO PRN (23:25)
[2017-08-08] MEDS ORDERED: cloNIDine HCL 0.1 MG TABLET PO PRN (23:26)
[2017-08-08] MEDS ORDERED: ALBUTEROL SO4 18 GM HFA INHALER IH PRN (23:27)
[2017-08-08] MEDS ORDERED: BACITRACIN 0.9 GM PACKET TP ONE (23:28)
[2017-08-09] MEDS: diphenhydrAMINE HCL 50 MG CAPSULE PO PRN (00:39)
[2017-08-09] MEDS: LIDOCAINE PATCH REMOVAL MC SCH ×2 (00:41→21:45)
[2017-08-09] MEDS: diazePAM 5 MG TABLET PO SCH ×4 (00:41→22:07)
[2017-08-09] MEDS: ONDANSETRON *ODT* 4 MG TABLET SL PRN (05:57)
[2017-08-09] MEDS: NICOTINE POLACRILEX 2 MG GUM BC PRN ×5 (06:41→22:09)
[2017-08-09 09:40] LABS: URINE APPEARANCE CLEAR; URINE BILIRUBIN NEGATIVE (NEGATIVE); URINE BLOOD NEGATIVE (NEGATIVE); URINE COLOR LTYELLOW; URINE GLUCOSE (UA) NEGATIVE (NEGATIVE); URINE KETONE NEGATIVE (NEGATIVE); URINE LEUK ESTERASE NEGATIVE (NEGATIVE); URINE NITRITE NEGATIVE (NEGATIVE); URINE PROTEIN NEGATIVE (NEGATIVE); URINE UROBILINOGEN NEGATIVE mg/dL (0.2-1.0)
[2017-08-09 09:42] LABS: MCH 30.9 pg (25.7-33.7); MEAN CELL VOLUME 91.1 fl (80-96); MEAN PLT VOLUME 8.1 fl (7.5-11.1); PLATELET COUNT 277 K/MM3 (134-434); RDW 14.3 % (11.6-15.6); WHITE BLOOD COUNT 7.7 K/mm3 (4.0-10.0)
[2017-08-09 09:49] LABS: ALBUMIN 3.2 g/dl (3.4-5.0); ANION GAP 4 (8-16); BILIRUBIN,TOTAL 1.1 mg/dL (0.2-1.0); CALCIUM 8.4 mg/dL (8.5-10.1); CO2 33 mmol/L (21-32); GLUCOSE,RANDOM 97 mg/dL (74-106); SGOT/AST 10 U/L (15-37); SGPT/ALT 18 U/L (12-78); TOT PROT 6.2 g/dl (6.4-8.2)
[2017-08-09 09:50] LABS: ALK PHOS 65 U/L (45-117)
--- NOTE | 2017-08-09 09:58 | EKG ---
Test Reason : Blood Pressure : / mmHG Vent. Rate : 065 BPM Atrial Rate : 065 BPM P-R Int : 116 ms QRS Dur : 090 ms QT Int : 402 ms P-R-T Axes : 031 055 030 degrees QTc Int : 418 ms NORMAL SINUS RHYTHM NONSPECIFIC ST ABNORMALITY ABNORMAL ECG WHEN COMPARED WITH ECG OF 13-MAR-2017 15:47, VENT. RATE HAS DECREASED BY 42 BPM Confirmed by NAYELY HINOJOSA MD ([id number]) on 08/09/2017 9:58:39 AM Referred By: Confirmed By:NAYELY HINOJOSA MD
[2017-08-09] MEDS ORDERED: METHADONE HCL 10 MG TABLET (FOR DETOX USE ONLY) PO SCH (10:00)
[2017-08-09] MEDS ORDERED: RANITIDINE HCL 150 MG TABLET (FP) PO SCH (10:00)
[2017-08-09] MEDS ORDERED: METHADONE HCL 10 MG TABLET (FOR DETOX USE ONLY) PO ONE ×2 (10:00→22:36)
--- NOTE | 2017-08-09 10:10 | PN ---
S CIWA - CIWA Score Nausea/Vomitin-No Nausea/No Vomiting Muscle Tremors: 4-Moderate,w/Arms Extend Anxiety: 3 Agitation: 4-Moderately Restless Paroxysmal Sweats: 3 Orientation: 0-Oriented Tacttile Disturbances: 0-None Auditory Disturbances: 0-None Visual Disturbances: 0-None Headache: 0-None Present CIWA-Ar Total Score: 14 BHS COWS - Scale Resting Pulse: 0= [place] 80 or Below Sweatin=Flushed/Facial Moisture Restless Observation: 1= Difficult to Sit Still Pupil Size: 0= Normal to Room Light Bone or Joint Aches: 2= Severe Diffuse Aches Runny Nose/ Eye Tearin= Nasal Congestion GI Upset > 30mins: 1= Stomach Cramp Tremor Observation of Outstretched Hands: 2= Slight Tremor Visible Yawning Observation: 2= >3x During Session Anxiety or Irritability: 2=Irritable/Anxious Goose Flesh Skin: 0=Smooth Skin COWS Score: 13 S Progress Note (SOAP) Subjective: agitation anxiety sweats shakes body aches nausea left ear swollen and some discomfort. maybe a mosquito bite. Objective: 08/09/17 10:09 Vital Signs Temperature 98.8 F 08/09/17 06:00 Pulse Rate 59 L 08/09/17 06:00 Respiratory Rate 16 08/09/17 06:00 Blood Pressure 133/76 08/09/17 06:00 O2 Sat by Pulse Oximetry (%) Laboratory Tests 08/09/17 08/09/17 08/09/17 08:00 08:00 08:20 WBC 7.7 RBC 4.42 Hgb 13.7 Hct 40.2 MCV 91.1 MCH 30.9 MCHC 34.0 RDW 14.3 Plt Count 277 D MPV 8.1 Sodium 137 Potassium 3.7 Chloride 100 Carbon Dioxide 33 H Anion Gap 4 L BUN 18 D Creatinine 1.0 D Creat Clearance w eGFR > 60 Random Glucose 97 D Calcium 8.4 L Total Bilirubin 1.1 H D AST 10 L ALT 18 Alkaline Phosphatase 65 Total Protein 6.2 L Albumin 3.2 L Urine Color Ltyellow Urine Appearance Clear Urine pH 6.0 Urine Protein Negative Urine Glucose (UA) Negative Urine Ketones Negative Urine Blood Negative Urine Nitrite Negative Urine Bilirubin Negative Urine Urobilinogen Negative AAOx3 ambulating no acute distress Assessment: 10/03/17 10:10 withdrawal sx Plan: continue detox flexiril prn hydrocortisone cream for left ear
[2017-08-09] MEDS: LIDOCAINE 5% TOPICAL PATCH TP SCH (10:30)
[2017-08-09] MEDS: NICOTINE 14 MG/24 HOURS TOPICAL PATCH TD SCH (10:30)
[2017-08-09] MEDS: PRENATAL VITAMINS W/ FOLIC ACID TABLET (FP) PO SCH (10:31)
[2017-08-09] MEDS: diazePAM 5 MG TABLET PO PRN ×2 (10:31→17:39)
[2017-08-09] MEDS: CYCLOBENZAPRINE HCL 10 MG TABLET (FP) PO PRN ×2 (10:36→22:05)
--- NOTE | 2017-08-09 11:07 | CONSULT ---
[facility] Psychiatric Consult - Data Date of interview: 08/09/17 Admission source: [facility] Identifying data: This is a 37 year old single Hispnic female mother of 3 (18 and 7 y/o twins) residing in [facility], she is unemployed and suppoirted by VONDA. History of herpoin, klonopin, cocaine dependence. Substance Abuse History: Patient reports using heroin 10-15 bags a day, started 4 years ago, cocaine daily use, cigarettes 4-5 a day, Klonopin 1 mg po tid, patient [facility]. Medical History: Asthma,s/p appendectomy. Psychiatric History: Patient reports was diagnosed as Bipolar disorder and QUIANA about 6 years ago, no history of psychiatric hospitalizations, under the care of Bridgett at [facility], she is currently on Seroquel 100 mg po am and 200 mg po hs, Wellbutrin XR 300 mg po daily and Buspar 15 mg po tid, she reports hse also on Klonopin 1 mg po tid. States she lost a lot of family members this year: mother passed 2 months ago, father 4 months ago and grandmother 6 months ago, tearful and feels depressed, denies history of sucidal attempts. Physical/Sexual Abuse/Trauma History: Denies history of sexual, physical and verbal abuse. Mental Status Exam - Mental Status Exam Alert and Oriented to: Time, Place, Person Cognitive Function: Grossly Intact Patient Appearance: Unkempt Mood: Depressed, Sad, Anxious Affect: Mood Congruent (tearful) Patient Behavior: Appropriate, Cooperative Speech Pattern: Clear, Appropriate Voice Loudness: Normal Thought Process: Intact, Goal Oriented Thought Disorder: Not Present Hallucinations: Denies Suicidal Ideation: Denies Homicidal Ideation: Denies Insight/Judgement: Fair Sleep: Poorly Appetite: Fair Muscle strength/Tone: Normal Gait/Station: Normal Psychiatric Findings - Problem List (Ocate 1, 2,3) (1) QUIANA (generalized anxiety disorder) Current Visit: Yes Status: Acute (2) Bipolar disorder, unspecified Current Visit: Yes Status: Acute - Initial Treatment Plan Initial Treatment Plan: will continue Seroquel 100 mg po am and 200 mg po hs, Buspar 15 mg po tid, Wellbutrin 300 mg po daily, continue detox. protocol.
[2017-08-09] MEDS: BACITRACIN 0.9 GM PACKET TP SCH ×2 (11:37→22:04)
[2017-08-09] MEDS: CEPHALEXIN MONOHYDRATE 500 MG CAPSULE (UD) PO SCH ×2 (11:37→17:39)
[2017-08-09] MEDS ORDERED: QUEtiapine FUMARATE 100 MG TABLET (FP) PO ONE (11:46)
[2017-08-09] MEDS: QUEtiapine FUMARATE 200 MG TABLET PO SCH (22:06)
[2017-08-09] MEDS: THIAMINE HCL 100 MG TABLET (FP) PO SCH (22:07)
[2017-08-09] MEDS: MAG HYDROX/AL HYDROX/SIMETH 30 ML UNIT-DOSE CUP PO PRN (22:08)
[2017-08-10] MEDS: diazePAM 5 MG TABLET PO PRN ×3 (02:12→19:52)
[2017-08-10] MEDS: CEPHALEXIN MONOHYDRATE 500 MG CAPSULE (UD) PO SCH ×6 (05:27→23:00)
[2017-08-10] MEDS: CYCLOBENZAPRINE HCL 10 MG TABLET (FP) PO PRN ×3 (05:30→22:16)
[2017-08-10] MEDS: NICOTINE POLACRILEX 2 MG GUM BC PRN ×6 (05:33→22:20)
[2017-08-10] MEDS: ONDANSETRON *ODT* 4 MG TABLET SL PRN (05:46)
--- NOTE | 2017-08-10 08:05 | PN ---
Psychiatric Progress Note Vital Signs: Vital Signs Period Temp Pulse Resp BP Sys/Narvaez Pulse Ox Last 24 Hr 96.5 F-99.1 F 75-105 16-18 101-112/63-68 Date of Session: 08/10/17 Chief Complaint:: [place] order HPI: Patient reports to carry Bipolar disorder, reports sangita prior to admission: [place] 300mg po bid Current Medications: Active Medications Generic Name Dose Route Start Last Admin Trade Name Freq PRN Reason Stop Dose Admin Acetaminophen 650 mg 08/08/17 23:21 08/09/17 00:37 Tylenol - PO 650 mg Q4H PRN Administration FEVER OR PAIN Al Hydroxide/Mg Hydroxide 30 ml 08/08/17 23:21 08/09/17 22:08 Mylanta Oral Suspension - PO 30 ml Q6H PRN Administration DYSPEPSIA Albuterol Sulfate 2 puff 08/08/17 23:27 Ventolin Hfa Inhaler - IH Q4H PRN SHORT OF BREATH/WHEEZING Bacitracin 0.9 gm 08/09/17 11:00 08/09/17 22:04 Bacitracin - TP 0.9 gm BID WENDY Administration Bupropion HCl 300 mg 08/10/17 10:00 Wellbutrin Xl - PO DAILY WENDY Buspirone HCl 15 mg 08/09/17 14:00 08/10/17 05:27 Buspar - PO 15 mg TID WENDY Administration Cephalexin HCl 500 mg 08/09/17 12:00 08/10/17 05:27 Keflex - PO 08/16/17 11:59 500 mg Q6HPO WENDY Administration Cyclobenzaprine HCl 10 mg 08/09/17 09:55 08/10/17 05:30 Flexeril - PO 10 mg TID PRN Administration MUSCLE SPASMS Diazepam 10 mg 08/08/17 23:21 08/10/17 02:12 Valium - PO 08/11/17 23:21 10 mg Q4H PRN Administration WITHDRAWAL(CONT SUBST) Diazepam 5 mg 08/10/17 10:00 Valium - PO 08/11/17 22:01 BID WENDY Diazepam 5 mg 08/12/17 10:00 Valium - PO 08/12/17 10:01 DAILY WENDY Diphenhydramine HCl 50 mg 08/08/17 23:21 08/09/17 00:39 Benadryl - PO 50 mg HSMR1 PRN Administration INSOMNIA Eucalyptus/Menthol/Phenol/Sorbitol 1 each 08/08/17 23:21 Cepastat Lozenge - MM Q4H PRN SORE THROAT Guaifenesin 10 ml 08/08/17 23:21 Robitussin Dm - PO Q6H PRN COUGH Lidocaine 1 patch 08/09/17 10:00 08/09/17 10:30 Lidoderm Patch - TP 1 patch DAILY WENDY Administration Loperamide HCl 4 mg 08/08/17 23:21 Imodium - PO Q6H PRN DIARRHEA Magnesium Citrate 300 ml 08/08/17 23:21 Citroma - PO Q48H PRN CONSTIPATION Magnesium Hydroxide 30 ml 08/08/17 23:21 Milk Of Magnesia - PO DAILY PRN CONSTIPATION Methadone HCl 20 mg 08/10/17 10:00 Dolophine - PO 08/10/17 10:01 DAILY WENDY Methadone HCl 15 mg 08/11/17 10:00 Dolophine - PO 08/12/17 10:01 DAILY WENDY Methadone HCl 10 mg 08/13/17 10:00 Dolophine - PO 08/13/17 10:01 ONCE ONE Methadone HCl 5 mg 08/14/17 06:00 Dolophine - PO 08/14/17 06:01 ONCE@0600 ONE Miscellaneous 1 each 08/08/17 22:00 08/09/17 21:45 Lidoderm Patch Removal MC Not Given DAILY@2200 WENDY Nicotine 14 mg 08/09/17 10:00 08/09/17 10:30 Nicoderm Patch - TD 14 mg DAILY WENDY Administration Nicotine Polacrilex 2 mg 08/08/17 23:21 08/10/17 05:33 Nicorette Gum - BC 2 mg Q2H PRN Administration NICOTINE REPLACEMENT RX Ondansetron HCl 4 mg 08/08/17 23:28 08/10/17 05:46 Zofran Odt - SL 4 mg Q8H PRN Administration NAUSEA AND/OR VOMITING Multivit/Folic Acid/Iron 1 tab 08/09/17 10:00 08/09/17 10:31 Vitamins (Sjr) - PO 1 tab DAILY WENDY Administration Pseudoephedrine/Triprolidine 1 combo 08/08/17 23:21 Actifed - PO TID PRN NASAL CONGESTION Quetiapine Fumarate 200 mg 08/09/17 22:00 08/09/17 22:06 Seroquel - PO 200 mg HS WENDY Administration Quetiapine Fumarate 100 mg 08/10/17 10:00 Seroquel - PO DAILY WENDY Thiamine HCl 100 mg 08/09/17 22:00 08/09/17 22:07 Vitamin B1 - PO 100 mg HS WENDY Administration Medication(s) Change(s): [place] 300mg po bid Mental Status Exam - Mental Status Exam Alert and Oriented to: Time, Place, Person Cognitive Function: Fair Patient Appearance: Unkempt Mood: Apprehensive Affect: Mood Congruent Patient Behavior: Cooperative Speech Pattern: Appropriate Voice Loudness: Normal Thought Process: Goal Oriented Thought Disorder: Being Controlled Hallucinations: Denies Suicidal Ideation: Denies Homicidal Ideation: Denies Insight/Judgement: Fair Sleep: Difficulty falling asleep Appetite: Weight loss Muscle strength/Tone: Mild Hypertonicity Gait/Station: Normal Additional Comments: [place] 300mg po bid Psychiatric Treatment Plan - Problem List (1) Bipolar disorder, unspecified Current Visit: Yes (2) QUIANA (generalized anxiety disorder) Current Visit: Yes (3) Nicotine dependence Current Visit: Yes Qualifiers: Nicotine product type: cigarettes Substance use status: in withdrawal Qualified Code(s): F17.213 - Nicotine dependence, cigarettes, with withdrawal; F17.213 - Nicotine dependence, cigarettes, with withdrawal (4) Alcohol dependence with uncomplicated withdrawal Current Visit: Yes (5) Benzodiazepine abuse Current Visit: Yes (6) Cocaine dependence, uncomplicated Current Visit: Yes (7) Opioid dependence with withdrawal Current Visit: Yes (8) PCP dependence Current Visit: Yes (9) Sedative, hypnotic or anxiolytic dependence with withdrawal, uncomplicated Current Visit: Yes (10) MDD (major depressive disorder) Current Visit: No (11) Opioid dependence Current Visit: No Qualifiers: Substance use status: uncomplicated Qualified Code(s): F11.20 - Opioid dependence, uncomplicated; F11.20 - Opioid dependence, uncomplicated; F11.20 - Opioid dependence, uncomplicated (12) Panic disorder with agoraphobia Current Visit: No Initial treatment plan: [place] 300mg po bid
[2017-08-10] MEDS ORDERED: METHADONE HCL 10 MG TABLET (FOR DETOX USE ONLY) PO SCH (10:00)
[2017-08-10] MEDS ORDERED: METHADONE HCL 5 MG TABLET (FOR DETOX USE ONLY) PO SCH (10:00)
[2017-08-10] MEDS: PRENATAL VITAMINS W/ FOLIC ACID TABLET (FP) PO SCH (10:31)
[2017-08-10] MEDS: LITHIUM CARBONATE 300 MG CAPSULE (FP) PO SCH ×2 (10:32→22:16)
[2017-08-10] MEDS: diazePAM 5 MG TABLET PO SCH ×2 (10:32→22:17)
[2017-08-10] MEDS: QUEtiapine FUMARATE 100 MG TABLET (FP) PO SCH (10:32)
[2017-08-10] MEDS: BACITRACIN 0.9 GM PACKET TP SCH ×2 (10:32→22:15)
[2017-08-10] MEDS: LIDOCAINE 5% TOPICAL PATCH TP SCH (10:34)
[2017-08-10] MEDS: NICOTINE 14 MG/24 HOURS TOPICAL PATCH TD SCH (10:34)
--- NOTE | 2017-08-10 12:45 | PN ---
BHS COWS - Scale Resting Pulse: 0= [place] 80 or Below Sweatin= Chills/Flushing Restless Observation: 3= Extraneous Movement Pupil Size: 1= Pupils >than Normal Bone or Joint Aches: 2= Severe Diffuse Aches Runny Nose/ Eye Tearin= Runny Nose/Eyes GI Upset > 30mins: 2= Nausea/Diarrhea Tremor Observation of Outstretched Hands: 2= Slight Tremor Visible Yawning Observation: 1= 1-2x During Session Anxiety or Irritability: 2=Irritable/Anxious Goose Flesh Skin: 0=Smooth Skin COWS Score: 16 S Progress Note (SOAP) Subjective: alert,irritable,anxious,interrupted sleep,tremor,pain in the body and back Objective: 08/10/17 12:44 Vital Signs Temperature 97.7 F 08/10/17 10:38 Pulse Rate 70 08/10/17 10:38 Respiratory Rate 20 08/10/17 10:38 Blood Pressure 114/84 08/10/17 10:38 O2 Sat by Pulse Oximetry (%) 08/10/17 12:44 Laboratory Last Values WBC 7.7 K/mm3 (4.0-10.0) 08/09/17 08:00 RBC 4.42 M/mm3 (3.60-5.2) 08/09/17 08:00 Hgb 13.7 GM/dL (10.7-15.3) 08/09/17 08:00 Hct 40.2 % (32.4-45.2) 08/09/17 08:00 MCV 91.1 fl (80-96) 08/09/17 08:00 MCH 30.9 pg (25.7-33.7) 08/09/17 08:00 MCHC 34.0 g/dl (32.0-36.0) 08/09/17 08:00 RDW 14.3 % (11.6-15.6) 08/09/17 08:00 Plt Count 277 K/MM3 (134-434) D 08/09/17 08:00 MPV 8.1 fl (7.5-11.1) 08/09/17 08:00 Sodium 137 mmol/L (136-145) 08/09/17 08:00 Potassium 3.7 mmol/L (3.5-5.1) 08/09/17 08:00 Chloride 100 mmol/L (98-107) 08/09/17 08:00 Carbon Dioxide 33 mmol/L (21-32) H 08/09/17 08:00 Anion Gap 4 (8-16) L 08/09/17 08:00 BUN 18 mg/dL (7-18) D 08/09/17 08:00 Creatinine 1.0 mg/dL (0.55-1.02) D 08/09/17 08:00 Creat Clearance w eGFR > 60 (>60) 08/09/17 08:00 Random Glucose 97 mg/dL (74-106) D 08/09/17 08:00 Calcium 8.4 mg/dL (8.5-10.1) L 08/09/17 08:00 Total Bilirubin 1.1 mg/dL (0.2-1.0) H D 08/09/17 08:00 AST 10 U/L (15-37) L 08/09/17 08:00 ALT 18 U/L (12-78) 08/09/17 08:00 Alkaline Phosphatase 65 U/L (45-117) 08/09/17 08:00 Total Protein 6.2 g/dl (6.4-8.2) L 08/09/17 08:00 Albumin 3.2 g/dl (3.4-5.0) L 08/09/17 08:00 Urine Color Ltyellow 08/09/17 08:20 Urine Appearance Clear 08/09/17 08:20 Urine pH 6.0 (5.0-8.0) 08/09/17 08:20 Ur Specific [place] 1.010 (1.005-1.025) 08/09/17 08:20 Urine Protein Negative (NEGATIVE) 08/09/17 08:20 Urine Glucose (UA) Negative (NEGATIVE) 08/09/17 08:20 Urine Ketones Negative (NEGATIVE) 08/09/17 08:20 Urine Blood Negative (NEGATIVE) 08/09/17 08:20 Urine Nitrite Negative (NEGATIVE) 08/09/17 08:20 Urine Bilirubin Negative (NEGATIVE) 08/09/17 08:20 Urine Urobilinogen Negative mg/dL (0.2-1.0) 08/09/17 08:20 RPR Titer Nonreactive (NONREACTIVE) 08/09/17 08:00 Assessment: 08/10/17 12:44 withdrawal symptom 08/10/17 12:45 Plan: continue detox
[2017-08-10] MEDS: MAG HYDROX/AL HYDROX/SIMETH 30 ML UNIT-DOSE CUP PO PRN ×2 (15:01→22:18)
[2017-08-10] MEDS: QUEtiapine FUMARATE 200 MG TABLET PO SCH (22:17)
[2017-08-10] MEDS: LIDOCAINE PATCH REMOVAL MC SCH (22:17)
[2017-08-10] MEDS: THIAMINE HCL 100 MG TABLET (FP) PO SCH (22:17)
[2017-08-11] MEDS: CEPHALEXIN MONOHYDRATE 500 MG CAPSULE (UD) PO SCH ×4 (06:09→23:03)
[2017-08-11] MEDS: NICOTINE POLACRILEX 2 MG GUM BC PRN ×4 (06:12→23:06)
[2017-08-11] MEDS: diazePAM 5 MG TABLET PO PRN ×3 (06:12→23:01)
[2017-08-11] MEDS: MAG HYDROX/AL HYDROX/SIMETH 30 ML UNIT-DOSE CUP PO PRN ×2 (07:35→22:17)
[2017-08-11] MEDS: PRENATAL VITAMINS W/ FOLIC ACID TABLET (FP) PO SCH (10:38)
[2017-08-11] MEDS: CLINDAMYCIN PHOSPHATE 1% TOPICAL GEL 30 GM TUBE TP SCH ×2 (10:38→22:13)
[2017-08-11] MEDS: BACITRACIN 0.9 GM PACKET TP SCH ×2 (10:38→22:13)
[2017-08-11] MEDS: diazePAM 5 MG TABLET PO SCH ×2 (10:39→22:15)
[2017-08-11] MEDS: PANTOPRAZOLE 40 MG TABLET (FP) PO SCH (10:39)
[2017-08-11] MEDS: LITHIUM CARBONATE 300 MG CAPSULE (FP) PO SCH ×2 (10:39→22:14)
[2017-08-11] MEDS: METHADONE HCL 5 MG TABLET (FOR DETOX USE ONLY) PO SCH (10:39)
[2017-08-11] MEDS: QUEtiapine FUMARATE 100 MG TABLET (FP) PO SCH (10:40)
[2017-08-11] MEDS: NICOTINE 14 MG/24 HOURS TOPICAL PATCH TD SCH (10:44)
[2017-08-11] MEDS: LIDOCAINE 5% TOPICAL PATCH TP SCH (10:44)
--- NOTE | 2017-08-11 11:38 | PN ---
BHS Progress Note (SOAP) Subjective: facial acne sweats anxiety Objective: 08/11/17 11:37 Vital Signs Temperature 98.1 F 08/11/17 11:16 Pulse Rate 89 08/11/17 11:16 Respiratory Rate 18 08/11/17 11:16 Blood Pressure 125/72 08/11/17 11:16 O2 Sat by Pulse Oximetry (%) aaox3 ambulating no acute distress Assessment: 08/11/17 11:37 withdrawal sx Plan: continue detox increase fluids cleocin topical ordered visitril prn
[2017-08-11] MEDS: hydrOXYzine PAMOATE 50 MG CAPSULE (FP) PO PRN (16:38)
[2017-08-11] MEDS: CYCLOBENZAPRINE HCL 10 MG TABLET (FP) PO PRN (22:14)
[2017-08-11] MEDS: LIDOCAINE PATCH REMOVAL MC SCH (22:15)
[2017-08-11] MEDS: QUEtiapine FUMARATE 200 MG TABLET PO SCH (22:15)
[2017-08-11] MEDS: THIAMINE HCL 100 MG TABLET (FP) PO SCH (22:16)
[2017-08-11] MEDS: diphenhydrAMINE HCL 50 MG CAPSULE PO PRN (23:02)
[2017-08-12] MEDS: hydrOXYzine PAMOATE 50 MG CAPSULE (FP) PO PRN (02:32)
[2017-08-12] MEDS: NICOTINE POLACRILEX 2 MG GUM BC PRN ×5 (02:33→22:07)
[2017-08-12] MEDS: CEPHALEXIN MONOHYDRATE 500 MG CAPSULE (UD) PO SCH ×3 (05:19→17:35)
[2017-08-12] MEDS: CYCLOBENZAPRINE HCL 10 MG TABLET (FP) PO PRN ×3 (05:22→22:04)
[2017-08-12] MEDS ORDERED: diazePAM 5 MG TABLET PO SCH (10:00)
[2017-08-12] MEDS ORDERED: METHADONE HCL 10 MG TABLET (FOR DETOX USE ONLY) PO SCH (10:00)
[2017-08-12] MEDS: QUEtiapine FUMARATE 100 MG TABLET (FP) PO SCH (10:34)
[2017-08-12] MEDS: BACITRACIN 0.9 GM PACKET TP SCH ×2 (10:34→22:04)
[2017-08-12] MEDS: CLINDAMYCIN PHOSPHATE 1% TOPICAL GEL 30 GM TUBE TP SCH ×2 (10:34→22:05)
[2017-08-12] MEDS: METHADONE HCL 5 MG TABLET (FOR DETOX USE ONLY) PO SCH (10:34)
[2017-08-12] MEDS: PRENATAL VITAMINS W/ FOLIC ACID TABLET (FP) PO SCH (10:34)
[2017-08-12] MEDS: PANTOPRAZOLE 40 MG TABLET (FP) PO SCH (10:35)
[2017-08-12] MEDS: LITHIUM CARBONATE 300 MG CAPSULE (FP) PO SCH ×2 (10:36→22:05)
[2017-08-12] MEDS: LIDOCAINE 5% TOPICAL PATCH TP SCH (10:36)
[2017-08-12] MEDS: NICOTINE 14 MG/24 HOURS TOPICAL PATCH TD SCH (10:36)
--- NOTE | 2017-08-12 12:03 | PN ---
BHS Progress Note (SOAP) Subjective: sweats shakes interrupted sleep body aches Objective: 08/12/17 12:02 Vital Signs Temperature 99.1 F 08/12/17 10:00 Pulse Rate 86 08/12/17 10:00 Respiratory Rate 18 08/12/17 10:00 Blood Pressure 107/59 08/12/17 10:00 O2 Sat by Pulse Oximetry (%) Laboratory Tests 08/09/17 08/09/17 08/09/17 08:00 08:00 08:00 WBC 7.7 RBC 4.42 Hgb 13.7 Hct 40.2 MCV 91.1 MCH 30.9 MCHC 34.0 RDW 14.3 Plt Count 277 D MPV 8.1 Sodium 137 Potassium 3.7 Chloride 100 Carbon Dioxide 33 H Anion Gap 4 L BUN 18 D Creatinine 1.0 D Creat Clearance w eGFR > 60 Random Glucose 97 D Calcium 8.4 L Total Bilirubin 1.1 H D AST 10 L ALT 18 Alkaline Phosphatase 65 Total Protein 6.2 L Albumin 3.2 L Urine Color Urine Appearance Urine pH Ur Specific [place] Urine Protein Urine Glucose (UA) Urine Ketones Urine Blood Urine Nitrite Urine Bilirubin Urine Urobilinogen RPR Titer Nonreactive 08/09/17 08:20 WBC RBC Hgb Hct MCV MCH MCHC RDW Plt Count MPV Sodium Potassium Chloride Carbon Dioxide Anion Gap BUN Creatinine Creat Clearance w eGFR Random Glucose Calcium Total Bilirubin AST ALT Alkaline Phosphatase Total Protein Albumin Urine Color Ltyellow Urine Appearance Clear Urine pH 6.0 Ur Specific [place] 1.010 Urine Protein Negative Urine Glucose (UA) Negative Urine Ketones Negative Urine Blood Negative Urine Nitrite Negative Urine Bilirubin Negative Urine Urobilinogen Negative RPR Titer aaox3 ambulating no acute distress Assessment: 08/12/17 12:03 withdrawal sx Plan: continue detox increase fluids
[2017-08-12] MEDS: QUEtiapine FUMARATE 200 MG TABLET PO SCH (22:04)
[2017-08-12] MEDS: THIAMINE HCL 100 MG TABLET (FP) PO SCH (22:04)
[2017-08-12] MEDS: MAG HYDROX/AL HYDROX/SIMETH 30 ML UNIT-DOSE CUP PO PRN (22:06)
[2017-08-12] MEDS: LIDOCAINE PATCH REMOVAL MC SCH (23:54)
[2017-08-13] MEDS: CEPHALEXIN MONOHYDRATE 500 MG CAPSULE (UD) PO SCH ×5 (01:20→23:10)
[2017-08-13] MEDS: hydrOXYzine PAMOATE 50 MG CAPSULE (FP) PO PRN ×4 (01:28→14:37)
[2017-08-13] MEDS: CYCLOBENZAPRINE HCL 10 MG TABLET (FP) PO PRN ×3 (05:50→22:29)
[2017-08-13] MEDS: MAG HYDROX/AL HYDROX/SIMETH 30 ML UNIT-DOSE CUP PO PRN (05:51)
[2017-08-13] MEDS ORDERED: METHADONE HCL 5 MG TABLET (FOR DETOX USE ONLY) PO SCH (06:00)
[2017-08-13] MEDS ORDERED: METHADONE HCL 10 MG TABLET (FOR DETOX USE ONLY) PO ONE (10:00)
[2017-08-13] MEDS: CLINDAMYCIN PHOSPHATE 1% TOPICAL GEL 30 GM TUBE TP SCH ×2 (10:37→22:28)
[2017-08-13] MEDS: PRENATAL VITAMINS W/ FOLIC ACID TABLET (FP) PO SCH (10:37)
[2017-08-13] MEDS: BACITRACIN 0.9 GM PACKET TP SCH ×2 (10:37→22:27)
[2017-08-13] MEDS: QUEtiapine FUMARATE 100 MG TABLET (FP) PO SCH (10:37)
[2017-08-13] MEDS: LITHIUM CARBONATE 300 MG CAPSULE (FP) PO SCH ×2 (10:37→22:29)
[2017-08-13] MEDS: PANTOPRAZOLE 40 MG TABLET (FP) PO SCH (10:37)
[2017-08-13] MEDS: NICOTINE 14 MG/24 HOURS TOPICAL PATCH TD SCH (10:38)
[2017-08-13] MEDS: LIDOCAINE 5% TOPICAL PATCH TP SCH (10:42)
--- NOTE | 2017-08-13 11:13 | PN ---
[facility] Progress Note (SOAP) Subjective: C/O rash on face despite clindamycin gel. She's still anxious & Restless Objective: 08/13/17 11:12 Vital Signs - 8 hr 08/13/17 08/13/17 08/13/17 03:30 06:00 10:00 Temperature 98.1 F 97.5 F L Pulse Rate 85 84 Respiratory 18 18 16 Rate Blood Pressure 112/73 125/71 Laboratory Last Values WBC 7.7 K/mm3 (4.0-10.0) 08/09/17 08:00 RBC 4.42 M/mm3 (3.60-5.2) 08/09/17 08:00 Hgb 13.7 GM/dL (10.7-15.3) 08/09/17 08:00 Hct 40.2 % (32.4-45.2) 08/09/17 08:00 MCV 91.1 fl (80-96) 08/09/17 08:00 MCH 30.9 pg (25.7-33.7) 08/09/17 08:00 MCHC 34.0 g/dl (32.0-36.0) 08/09/17 08:00 RDW 14.3 % (11.6-15.6) 08/09/17 08:00 Plt Count 277 K/MM3 (134-434) D 08/09/17 08:00 MPV 8.1 fl (7.5-11.1) 08/09/17 08:00 Sodium 137 mmol/L (136-145) 08/09/17 08:00 Potassium 3.7 mmol/L (3.5-5.1) 08/09/17 08:00 Chloride 100 mmol/L (98-107) 08/09/17 08:00 Carbon Dioxide 33 mmol/L (21-32) H 08/09/17 08:00 Anion Gap 4 (8-16) L 08/09/17 08:00 BUN 18 mg/dL (7-18) D 08/09/17 08:00 Creatinine 1.0 mg/dL (0.55-1.02) D 08/09/17 08:00 Creat Clearance w eGFR > 60 (>60) 08/09/17 08:00 Random Glucose 97 mg/dL (74-106) D 08/09/17 08:00 Calcium 8.4 mg/dL (8.5-10.1) L 08/09/17 08:00 Total Bilirubin 1.1 mg/dL (0.2-1.0) H D 08/09/17 08:00 AST 10 U/L (15-37) L 08/09/17 08:00 ALT 18 U/L (12-78) 08/09/17 08:00 Alkaline Phosphatase 65 U/L (45-117) 08/09/17 08:00 Total Protein 6.2 g/dl (6.4-8.2) L 08/09/17 08:00 Albumin 3.2 g/dl (3.4-5.0) L 08/09/17 08:00 Urine Color Ltyellow 08/09/17 08:20 Urine Appearance Clear 08/09/17 08:20 Urine pH 6.0 (5.0-8.0) 08/09/17 08:20 Ur Specific [place] 1.010 (1.005-1.025) 08/09/17 08:20 Urine Protein Negative (NEGATIVE) 08/09/17 08:20 Urine Glucose (UA) Negative (NEGATIVE) 08/09/17 08:20 Urine Ketones Negative (NEGATIVE) 08/09/17 08:20 Urine Blood Negative (NEGATIVE) 08/09/17 08:20 Urine Nitrite Negative (NEGATIVE) 08/09/17 08:20 Urine Bilirubin Negative (NEGATIVE) 08/09/17 08:20 Urine Urobilinogen Negative mg/dL (0.2-1.0) 08/09/17 08:20 [place] 0.3 MEQ/L (0.6-1.2) L 08/12/17 07:00 RPR Titer Nonreactive (NONREACTIVE) 08/09/17 08:00 labs noted Assessment: 08/13/17 11:12 Withdrawal sx. Plan: Continue detox
[2017-08-13] MEDS: cloNIDine HCL 0.1 MG TABLET PO SCH ×2 (11:25→22:28)
[2017-08-13] MEDS: NICOTINE POLACRILEX 2 MG GUM BC PRN ×3 (14:33→22:31)
[2017-08-13] MEDS: HYDROCORTISONE 1% TOPICAL CREAM 30 GM TUBE TP SCH ×3 (15:09→22:28)
[2017-08-13] MEDS: LIDOCAINE PATCH REMOVAL MC SCH (21:39)
[2017-08-13] MEDS: QUEtiapine FUMARATE 200 MG TABLET PO SCH (22:29)
[2017-08-13] MEDS: THIAMINE HCL 100 MG TABLET (FP) PO SCH (22:29)
[2017-08-14] MEDS: CYCLOBENZAPRINE HCL 10 MG TABLET (FP) PO PRN (02:34)
[2017-08-14] MEDS: hydrOXYzine PAMOATE 50 MG CAPSULE (FP) PO PRN ×2 (02:34→09:54)
[2017-08-14] MEDS ORDERED: METHADONE HCL 5 MG TABLET (FOR DETOX USE ONLY) PO ONE (06:00)
[2017-08-14] MEDS: CEPHALEXIN MONOHYDRATE 500 MG CAPSULE (UD) PO SCH (06:07)
[2017-08-14] MEDS: LITHIUM CARBONATE 300 MG CAPSULE (FP) PO SCH (09:54)
[2017-08-14] MEDS: cloNIDine HCL 0.1 MG TABLET PO SCH (09:54)
[2017-08-14] MEDS: QUEtiapine FUMARATE 100 MG TABLET (FP) PO SCH (09:55)
[2017-08-14] MEDS: CLINDAMYCIN PHOSPHATE 1% TOPICAL GEL 30 GM TUBE TP SCH (09:57)
[2017-08-14] MEDS: BACITRACIN 0.9 GM PACKET TP SCH (09:57)
[2017-08-14] MEDS: PANTOPRAZOLE 40 MG TABLET (FP) PO SCH (09:57)
--- NOTE | 2017-08-14 10:19 | DS ---
[facility] Detox Discharge Summary Admission Date: 08/08/17 Discharge Date: 08/14/17 - History Present History: Opioid Dependence, Sedative Dependence Additional Comments: FOLLOW UP WITH AFTER CARE PROGRAM ARRANGEMENT Pertinent Past History: GERD WEIGHT LOSS NICOTINE DEPENDENCE - Physical Exam Results Vital Signs: Vital Signs Temperature 97.1 F L 08/14/17 06:00 Pulse Rate 76 08/14/17 06:00 Respiratory Rate 18 08/14/17 06:00 Blood Pressure 138/62 08/14/17 06:00 O2 Sat by Pulse Oximetry (%) Pertinent Admission Physical Exam Findings: WITHDRAWAL SYMPTOM - Treatment Hospital Course: Detox Protocol Followed, Detoxed Safely, Responded well, Discharged Condition Good, Rehab Referral Accepted Patient has Accepted a Rehab Referral to: [facility] - Medication Discharge Medications: Ambulatory Orders Bupropion HCl [Wellbutrin Xl -] 300 mg PO DAILY 08/08/17 Buspirone HCl [Buspar -] 15 mg PO TID 08/08/17 Clonazepam [Klonopin -] 2 mg PO TID 08/08/17 Quetiapine Fumarate [Seroquel -] 200 mg PO HS 08/08/17 Bupropion HCl [Wellbutrin Xl -] 300 mg PO DAILY #30 tab 08/09/17 Buspirone HCl [Buspar -] 15 mg PO TID #90 tablet 08/09/17 Quetiapine Fumarate [Seroquel -] 200 mg PO HS #30 tablet 08/09/17 [place] Carbonate [Eskalith -] 300 mg PO BID #60 cap 08/10/17 - Diagnosis (1) Opioid dependence with withdrawal Current Visit: Yes Status: Chronic (2) GERD (gastroesophageal reflux disease) Current Visit: Yes Status: Chronic Qualifiers: Esophagitis presence: without esophagitis Qualified Code(s): K21.9 - Gastro-esophageal reflux disease without esophagitis; K21.9 - Gastro- esophageal reflux disease without esophagitis; K21.9 - Gastro-esophageal reflux disease without esophagitis (3) Nicotine dependence Current Visit: Yes Status: Chronic Qualifiers: Nicotine product type: cigarettes Substance use status: in withdrawal Qualified Code(s): F17.213 - Nicotine dependence, cigarettes, with withdrawal; F17.213 - Nicotine dependence, cigarettes, with withdrawal (4) Sedative, hypnotic or anxiolytic dependence with withdrawal, uncomplicated Current Visit: Yes Status: Chronic (5) Bipolar 1 disorder Current Visit: Yes Status: Acute (6) QUIANA (generalized anxiety disorder) Current Visit: Yes Status: Acute - AMA Did Patient Leave Against Medical Advice: No
[2017-08-14 10:25] VITALS: BP 111/80; PULSE 77; TEMP 97
== END 2017-08-14 10:35 | disposition home or self-care (01) | DRG 773 ==
LOC: YASAS 19:21 → UNDOADMIN 23:36 → Y3N 23:36 → Y6N 23:48
PROVIDERS: ADMIT Internal Medicine; ATTEND Internal Medicine
PROC: HZ2ZZZZ Detoxification Services for Substance Abuse Treatment (ICD-10-PCS; principal; 2017-08-08)
DX: F11.23 Opioid dependence with withdrawal (principal); F13.230 Sedative, hypnotic or anxiolytic dependence with withdrawal, uncomplicated; F14.20 Cocaine dependence, uncomplicated; F16.20 Hallucinogen dependence, uncomplicated; F17.213 Nicotine dependence, cigarettes, with withdrawal; F41.1 Generalized anxiety disorder; F31.89 Other bipolar disorder; F33.9 Major depressive disorder, recurrent, unspecified; F40.01 Agoraphobia with panic disorder; J45.909 Unspecified asthma, uncomplicated; N75.0 Cyst of Bartholin's gland; Z87.898 Personal history of other specified conditions
CPT/HCPCS: 36415; 80053; 80178; 81003; 85027; 86593; 93005; 93010

== ENCOUNTER 2018-01-25 15:33 | Inpatient (IN) | payer OTHER ==
[2018-01-25 16:49] VITALS: BMI 24.2
--- NOTE | 2018-01-25 17:05 | HP ---
CIWA Score - CIWA Score Nausea/Vomitin Muscle Tremors: 3 Anxiety: 3 Agitation: 3 Paroxysmal Sweats: 2 Orientation: 0-Oriented Tacttile Disturbances: 2-Mild Itch/Numbness/Burn Auditory Disturbances: 2-Mild Harshness/Frighten Visual Disturbances: 1-Very Mild Sensitivity Headache: 2-Mild CIWA-Ar Total Score: 21 Admission ROS BHS - HPI Chief Complaint: I NEED HELP TO STOP USING MD KEVIN AWARED Allergies/Adverse Reactions: Allergies Allergy/AdvReac Type Severity Reaction Status Date / Time No Known Allergies Allergy Verified 01/25/18 16:58 History of Present Illness: THIS 37 YEARS OLD FEMALE WITH KLONOPIN DEPENDENCE,SEEKING DETOX,WITHDRAWAL SYMPTOM,LAST DETOX [facility] 08/08/17 TO 08/14/17 MMTP 75MGS/DAY,LAST MEDICATED TODAY ALSO HEROIN ABUSED WEIGHT LOSS ANXIETY,DEPRESSION,PANICK ATTACK,INSOMNIA WEIGHT LOSS NICOTINE DEPENDENCE , LONGEST PERIOD OF SOBRIETY 1 YEAR Exam Limitations: No Limitations - Ebola screening Have you traveled outside of the country in the last 21 days: No Have you had contact with anyone from an Ebola affected area: No Have you been sick,other than usual withdrawal symptoms: No - Review of Systems Constitutional: Chills, Loss of Appetite, Malaise, Night Sweats, Changes in sleep, Weakness, Unintentional Wgt. Loss EENT: reports: Tearing, Nose Congestion Respiratory: reports: No Symptoms reported Cardiac: reports: Palpitations GI: reports: Diarrhea, Nausea, Vomiting, Abdominal cramping : reports: No Symptoms Reported Musculoskeletal: reports: Back Pain, Joint Pain, Muscle Pain Integumentary: reports: Dryness Neuro: reports: Headache, Tremors Endocrine: reports: No Symptoms Reported Hematology: reports: No Symptoms Reported Psychiatric: reports: No Sypmtoms Reported, Judgement Intact, Mood/Affect Appropiate, Anxious, Depressed (INSOMNIA PANICK ATTACK) Patient History - Patient Medical History Hx Anemia: No Hx Asthma: Yes (ALBUTERIOL INHALER) Hx Chronic Obstructive Pulmonary Disease (COPD): No Hx Cancer: No Hx Cardiac Disorders: No Hx Congestive Heart Failure: No Hx Hypertension: No Hx Hypercholesterolemia: No Hx Pacemaker: No HX Cerebrovascular Accident: No Hx Seizures: No Hx Dementia: No Hx Diabetes: No Hx Gastrointestinal Disorders: Yes (GERD) Hx Liver Disease: No Hx Genitourinary Disorders: No Hx Sexually Transmitted Disorders: No Hx Renal Disease (ESRD): No Hx Thyroid Disease: No Hx Human Immunodeficiency Virus (HIV): No (LAST 08/23 NEGATIVE) Hx Hepatitis C: No Hx Depression: Yes Hx Suicide Attempt: No Hx Bipolar Disorder: No Hx Schizophrenia: No Other Medical History: NO SUICIDAL,NO HOMICIDAL - Patient Surgical History Past Surgical History: Yes Hx Neurologic Surgery: No Hx Cataract Extraction: No Hx Cardiac Surgery: No Hx Lung Surgery: No Hx Breast Surgery: No Hx Breast Biopsy: No Hx Abdominal Surgery: No Hx Appendectomy: No Hx Cholecystectomy: No Hx Genitourinary Surgery: No Hx Section: Yes (2009) Hx Orthopedic Surgery: No Hx Hysterectomy: No Other Surgical History: appendectomy at age 29,incision and drainage of abscess of right bartholin Anesthesia Reaction: No - PPD History Previous Implant?: Yes Documented Results: Negative w/proof Implanted On Prior [facility] Admission?: No Date: 03/15/17 Results: 0 MM PPD to be Administered?: No - Reproductive History Patient is a Female of Child Bearing Age (11 -55 yrs old): Yes Last Menstrual Period: 08/26/17 Patient : No - Smoking Cessation Smoking history: Current every day smoker Have you smoked in the past 12 months: Yes Aproximately how many cigarettes per day: 10 Cigars Per Day: 0 Hx Chewing Tobacco Use: No Initiated information on smoking cessation: Yes 'Breaking Loose' booklet given: 01/25/18 - Substance & Tx. History Hx Alcohol Use: No Hx Substance Use: Yes Substance Use Type: Cocaine, Marijuana, Tranquilizers Hx Substance Use Treatment: Yes ([facility] 08/08/17 TO 08/14/17) - Substances Abused Benzodiazepine (Klonopin) Route: Oral Frequency: Daily Amount used: 9 mgs Age of first use: 36 Date of Last Use: 01/24/18 Cocaine Route: Smoking Frequency: 1-2 times per week Amount used: 1 bag Age of first use: 36 Date of Last Use: 01/18/18 Marijuana/Hashish Route: Smoking Frequency: 1-3 times last 30 days Amount used: 1 joint Age of first use: 16 Date of Last Use: 01/23/18 Heroin Route: Inhalation Frequency: 1-2 times per week Amount used: 15 Age of first use: 33 Date of Last Use: 01/18/18 Family Disease History - Family Disease History Family Disease History: Diabetes: Grandparent (), Heart Disease: Grandparent, Mother (asthma,ID,HTN/), Respiratory: Mother, Other: Father (/HIV), Mother Admission Physical Exam [facility] - Vital Signs Vital Signs: Vital Signs - 24 hr 01/25/18 16:46 Temperature 96.1 F L Pulse Rate 83 Respiratory 18 Rate Blood Pressure 142/91 - Physical General Appearance: Yes: Moderate Distress, Tremorous, Irritable, Sweating, Anxious HEENTM: Yes: Normal ENT Inspection, [place], Pharynx Normal Respiratory: Yes: Lungs Clear, Normal Breath Sounds, No Respiratory Distress Neck: Yes: Within Normal Limits, Supple, Trachea in good position Breast: Yes: Breast Exam Deferred Cardiology: Yes: Within Normal Limits, Regular Rhythm, Regular Rate, S1, S2 Abdominal: Yes: Within Normal Limits, Normal Bowel Sounds, Non Tender, Flat, Soft Genitourinary: Yes: Within Normal Limits Back: Yes: Muscle Spasm Musculoskeletal: Yes: Back pain, Muscle Pain Extremities: Yes: Normal Range of Motion, Tremors, Other (MASS OF RIGHT FOOT LIPOMA) Neurological: Yes: groover operator II-XII NML intact, Fully Oriented, Alert, Motor Strength 5/5 Integumentary: Yes: Dry Lymphatic: Yes: Within Normal Limits - Diagnostic (1) Uncomplicated sedative, hypnotic or anxiolytic withdrawal Current Visit: Yes Status: Acute (2) Cocaine dependence Current Visit: No Status: Chronic Qualifiers: Substance use status: uncomplicated Qualified Code(s): F14.20 - Cocaine dependence, uncomplicated (3) Cannabis dependence Current Visit: Yes Status: Acute (4) Weight loss Current Visit: No Status: Chronic (5) Nicotine dependence Current Visit: No Status: Chronic Qualifiers: Nicotine product type: cigarettes Substance use status: in withdrawal Qualified Code(s): F17.213 - Nicotine dependence, cigarettes, with withdrawal (6) Insomnia secondary to depression with anxiety Current Visit: Yes Status: Acute (7) Panic disorder Current Visit: Yes Status: Acute (8) GERD (gastroesophageal reflux disease) Current Visit: No Status: Chronic Qualifiers: Esophagitis presence: without esophagitis Qualified Code(s): K21.9 - Gastro -esophageal reflux disease without esophagitis (9) Methadone maintenance therapy patient Current Visit: Yes Status: Acute (10) Mass of right foot Current Visit: Yes Status: Acute Cleared for Admission [facility] - Detox or Rehab [facility] Level of Care: Medically Managed Detox Regimen/Protocol: Valium [facility] Breath Alcohol Content Breath Alcohol Content: 0 Urine Pregancy Test - Result Urine Test Results: Negative- NO Line Present Urine Drug Screen - Results Drug Screen Negative: No Urine Drug Screen Results: THC-Marijuana, DARIO-Cocaine, OPI-Opiates, MTD- Methadone, TCA-Tricyclic Antidepress, OXY-Oxycodone
[2018-01-25] MEDS ORDERED: MAGNESIUM HYDROX 2400MG/30ML ORAL SUSPENSION 30 ML CUP PO PRN (17:23)
[2018-01-25] MEDS ORDERED: MAGNESIUM CITRATE 300 ML BOTTLE PO PRN (17:23)
[2018-01-25] MEDS ORDERED: ACETAMINOPHEN 325 MG TABLET (FP) PO PRN (17:23)
[2018-01-25] MEDS ORDERED: LOPERAMIDE HCL 2 MG CAPSULE PO PRN (17:23)
[2018-01-25] MEDS ORDERED: IBUPROFEN 400 MG TABLET (FP) PO PRN (17:23)
[2018-01-25] MEDS ORDERED: guaiFENesin/D-METHORPHAN HB 10 ML UNIT-DOSE CUPS PO PRN (17:23)
[2018-01-25] MEDS ORDERED: P-EPHED 60MG/TRIPROLIDI 2.5MG TABLET PO PRN (17:23)
[2018-01-25] MEDS ORDERED: MENTHOL/PHENOL 1 EACH UD MM PRN (17:23)
[2018-01-25] MEDS ORDERED: diazePAM 5 MG TABLET PO ONE (18:00)
[2018-01-25] MEDS: PANTOPRAZOLE 40 MG TABLET (FP) PO SCH (18:46)
[2018-01-25] MEDS: NICOTINE 21 MG/24 HOURS TOPICAL PATCH TD SCH (18:46)
[2018-01-25] MEDS: diazePAM 5 MG TABLET PO SCH (22:45)
[2018-01-25] MEDS: hydrOXYzine PAMOATE 25 MG CAPSULE (FP) PO PRN (22:46)
[2018-01-25] MEDS: CYCLOBENZAPRINE HCL 10 MG TABLET (FP) PO PRN (22:46)
[2018-01-25] MEDS: THIAMINE HCL 100 MG TABLET (FP) PO SCH (22:46)
[2018-01-25] MEDS: MELATONIN 5 MG TABLETS PO SCH (22:46)
[2018-01-26] MEDS: diazePAM 5 MG TABLET PO PRN ×3 (02:43→17:41)
[2018-01-26] MEDS: diazePAM 5 MG TABLET PO SCH ×3 (05:41→22:35)
[2018-01-26] MEDS: CYCLOBENZAPRINE HCL 10 MG TABLET (FP) PO PRN ×3 (05:44→22:34)
--- NOTE | 2018-01-26 08:22 | EKG ---
Test Reason : Blood Pressure : / mmHG Vent. Rate : 086 BPM Atrial Rate : 086 BPM P-R Int : 132 ms QRS Dur : 082 ms QT Int : 372 ms P-R-T Axes : 061 073 021 degrees QTc Int : 445 ms NORMAL SINUS RHYTHM NORMAL ECG WHEN COMPARED WITH ECG OF 08-AUG-2017 23:43, NO SIGNIFICANT CHANGE WAS FOUND Confirmed by LEESA CANALES MD ([id number]) on 01/26/2018 8:21:53 AM Referred By: Confirmed By:LEESA CANALES MD
[2018-01-26] MEDS: NICOTINE POLACRILEX 2 MG GUM BC PRN ×3 (09:16→22:50)
--- NOTE | 2018-01-26 09:38 | PN ---
[facility]HS CIWA - CIWA Score Nausea/Vomitin-Mild Nausea/No Vomiting Muscle Tremors: 4-Moderate,w/Arms Extend Anxiety: 4-Mod. Anxious/Guarded Agitation: 4-Moderately Restless Paroxysmal Sweats: 1-Minimal Palms Moist Orientation: 0-Oriented Tacttile Disturbances: 1-Very Mild Itch/Numbness Auditory Disturbances: 0-None Visual Disturbances: 3-Moderate Sensitivity Headache: 0-None Present CIWA-Ar Total Score: 18 BHS Progress Note (SOAP) Subjective: sweat tremor restlessness anxiety sleeplessness irritable agitative easily Objective: 01/26/18 09:35 Vital Signs Temperature 97.7 F 01/26/18 06:37 Pulse Rate 64 01/26/18 06:37 Respiratory Rate 20 01/26/18 06:37 Blood Pressure 103/66 01/26/18 06:37 O2 Sat by Pulse Oximetry (%) lab not available at this time Assessment: 01/26/18 09:38 withdrawal sx Plan: continue detox
[2018-01-26] MEDS ORDERED: METHADONE HCL 10 MG TABLET PO ONE (09:48)
[2018-01-26] MEDS ORDERED: METHADONE 40 MG, METHADONE 30 MG, METHADONE 5 MG PO ONE (10:00)
[2018-01-26 10:16] LABS: CHLORIDE 100 mmol/L (98-107); POTASSIUM 4.6 mmol/L (3.5-5.1); SODIUM 140 mmol/L (136-145)
[2018-01-26 10:17] LABS: HEMATOCRIT 37.3 % (32.4-45.2); HEMOGLOBIN 12.6 GM/dL (10.7-15.3); MCH 31.1 pg (25.7-33.7); MCHC 33.8 g/dl (32.0-36.0); MEAN CELL VOLUME 91.9 fl (80-96); MEAN PLT VOLUME 8.8 fl (7.5-11.1); PLATELET COUNT 208 K/MM3 (134-434); RBC 4.06 M/mm3 (3.60-5.2); RDW 13.8 % (11.6-15.6); WHITE BLOOD COUNT 5.4 K/mm3 (4.0-10.0)
--- NOTE | 2018-01-26 10:20 | CONSULT ---
[facility] Psychiatric Consult - Data Date of interview: 01/26/18 Admission source: [facility] Identifying data: THIS 37 YEARS OLD FEMALE WITH KLONOPIN DEPENDENCE,SEEKING DETOX,WITHDRAWAL SYMPTOM,LAST DETOX [facility] 08/08/17 TO 08/14/17. MMTP 75MGS/DAY, LAST MEDICATED TODAY. ALSO HEROIN ABUSED. WEIGHT LOSS. ANXIETY,DEPRESSION, PANICK ATTACK,INSOMNIA. WEIGHT LOSS. NICOTINE DEPENDENCE ,. LONGEST PERIOD OF SOBRIETY 1 YEAR Substance Abuse History: Smoking Cessation. Smoking history: Current every day smoker. Have you smoked in the past 12 months: Yes. Aproximately how many cigarettes per day: 10. Cigars Per Day: 0. Hx Chewing Tobacco Use: No. Initiated information on smoking cessation: Yes. 'Breaking Loose' booklet given : 01/25/18. - Substance & Tx. History. Hx Alcohol Use: No. Hx Substance Use: Yes. Substance Use Type: Cocaine, Marijuana, Tranquilizers. Hx Substance Use Treatment: Yes ([facility] 08/08/17 TO 08/14/17). - Substances Abused. Benzodiazepine (Klonopin). Route: Oral. Frequency: Daily. Amount used: 3 TO 6 MGS. Age of first use: 34. Date of Last Use: 01/25/18. Urine Drug Screen Results: THC-Marijuana, DARIO-Cocaine, OPI-Opiates, MTD-Methadone, TCA-Tricyclic Antidepress, OXY-Oxycodone. As per computer PCP abuse history as well Medical History: Weight loss history, GERD, MMTP History, Right foot mass Psychiatric History: Patient reports history of [place] disorder, reports no history of psychiatric hospitalizations. Currently taking: Seroquel 200mg poqd , 400mg po qhs. Vistaril 25mg po prn q4 for anxiety. Buspar 30mg poqd. 15mg po qhs. Denies suicidal history. Wellbutrin XR 150mg poqd. Depakote 500mg po tid. Patient discussed possible sedation due to interaction of detox protocol medications and prior to admission medications, patient insisted on to cintinue prior medications, reports she did detox in the past taking the same dosages and was not sedated, Physical/Sexual Abuse/Trauma History: Denies Additional Comment: Urine Drug Screen Results: THC-Marijuana, DARIO-Cocaine, OPI- Opiates, MTD-Methadone, TCA-Tricyclic Antidepress, OXY-Oxycodone. Seroquel 200mg poqd, 400mg po qhs. Vistaril 25mg po prn q4 for anxiety. Buspar 30mg poqd. 15mg po qhs. Wellbutrin XR 150mg poqd. Depakote 500mg po tid. Blood Depakote level Mental Status Exam - Mental Status Exam Alert and Oriented to: Person Cognitive Function: Fair Patient Appearance: Unkempt Mood: Apprehensive Affect: Mood Congruent Patient Behavior: Cooperative Speech Pattern: Appropriate Voice Loudness: Mildly Soft/Quiet Thought Process: Goal Oriented Thought Disorder: Being Controlled Hallucinations: Denies Suicidal Ideation: Denies Homicidal Ideation: Denies Insight/Judgement: Fair Sleep: Difficulty falling asleep Appetite: Fair Muscle strength/Tone: Normal Gait/Station: Normal Additional Comments: Vistaril 25mg po prn q4 for anxiety. Buspar 30mg poqd. 15mg po qhs. Wellbutrin XR 150mg poqd. Depakote 500mg po tid. Blood Depakote level Psychiatric Findings - Problem List ([place] 1, 2,3) (1) Cannabis dependence Current Visit: Yes Status: Acute (2) Methadone maintenance therapy patient Current Visit: Yes Status: Acute (3) Panic disorder Current Visit: Yes Status: Acute (4) Bipolar 1 disorder Current Visit: No Status: Acute (5) QUIANA (generalized anxiety disorder) Current Visit: No Status: Acute (6) Cocaine dependence Current Visit: No Status: Chronic Qualifiers: Substance use status: uncomplicated Qualified Code(s): F14.20 - Cocaine dependence, uncomplicated (7) Cocaine dependence, uncomplicated Current Visit: No Status: Chronic (8) MDD (major depressive disorder) Current Visit: No Status: Chronic (9) Nicotine dependence Current Visit: No Status: Chronic Qualifiers: Nicotine product type: cigarettes Substance use status: in withdrawal Qualified Code(s): F17.213 - Nicotine dependence, cigarettes, with withdrawal (10) Obesity Current Visit: No Status: Chronic (11) Opioid dependence Current Visit: No Status: Chronic Qualifiers: Substance use status: uncomplicated Qualified Code(s): F11.20 - Opioid dependence, uncomplicated (12) Opioid dependence with withdrawal Current Visit: No Status: Chronic (13) PCP dependence Current Visit: No Status: Chronic (14) Panic disorder with agoraphobia Current Visit: No Status: Chronic (15) Sedative, hypnotic or anxiolytic dependence with withdrawal, uncomplicated Current Visit: No Status: Chronic - Initial Treatment Plan Initial Treatment Plan: Vistaril 25mg po prn q4 for anxiety. Buspar 30mg poqd. 15mg po qhs. Wellbutrin XR 150mg poqd. Depakote 500mg po tid. Blood Depakote level
[2018-01-26] MEDS ORDERED: METHADONE HCL 5 MG TABLET ONE (10:23)
[2018-01-26] MEDS ORDERED: METHADONE HCL 40 MG DISPERSABLE TABLET ONE (10:24)
[2018-01-26] MEDS ORDERED: METHADONE HCL 10 MG TABLET ONE (10:24)
[2018-01-26 10:30] LABS: ALBUMIN 3.3 g/dl (3.4-5.0); ALK PHOS 67 U/L (45-117); ANION GAP 9 (8-16); BILIRUBIN,TOTAL 0.4 mg/dL (0.2-1.0); BLOOD UREA NITROGEN 19 mg/dL (7-18); CALCIUM 9.1 mg/dL (8.5-10.1); CO2 31 mmol/L (21-32); CREATININE 0.8 mg/dL (0.55-1.02); GLUCOSE,RANDOM 87 mg/dL (74-106); SGOT/AST 14 U/L (15-37); SGPT/ALT 20 U/L (12-78); TOT PROT 6.8 g/dl (6.4-8.2)
[2018-01-26] MEDS: QUEtiapine FUMARATE 200 MG TABLET PO SCH (11:10)
[2018-01-26] MEDS: PANTOPRAZOLE 40 MG TABLET (FP) PO SCH (11:10)
[2018-01-26] MEDS: PRENATAL VITAMINS W/ FOLIC ACID TABLET (FP) PO SCH (11:10)
[2018-01-26] MEDS: NICOTINE 21 MG/24 HOURS TOPICAL PATCH TD SCH (11:16)
[2018-01-26] MEDS: DIVALPROEX SODIUM 500 MG TABLET E.C. PO SCH ×2 (14:39→22:34)
[2018-01-26] MEDS: TRIAMCINOLONE ACET 0.1% OINT 15 GM TUBE TP SCH ×3 (14:40→22:33)
[2018-01-26] MEDS: MAG HYDROX/AL HYDROX/SIMETH 30 ML UNIT-DOSE CUP PO PRN (14:43)
[2018-01-26] MEDS: LIDOCAINE PATCH REMOVAL MC SCH (22:34)
[2018-01-26] MEDS: MELATONIN 5 MG TABLETS PO SCH (22:35)
[2018-01-26] MEDS: THIAMINE HCL 100 MG TABLET (FP) PO SCH (22:35)
[2018-01-26] MEDS: QUEtiapine FUMARATE 400 MG TABLET PO SCH (22:35)
[2018-01-27] MEDS: DIVALPROEX SODIUM 500 MG TABLET E.C. PO SCH ×2 (05:54→13:08)
[2018-01-27] MEDS: diazePAM 5 MG TABLET PO PRN (05:55)
[2018-01-27] MEDS: NICOTINE POLACRILEX 2 MG GUM BC PRN ×3 (06:00→22:24)
[2018-01-27] MEDS ORDERED: METHADONE HCL 10 MG TABLET PO ONE (09:41)
[2018-01-27] MEDS ORDERED: LIDOCAINE 5% TOPICAL PATCH TP SCH (10:00)
[2018-01-27] MEDS: PRENATAL VITAMINS W/ FOLIC ACID TABLET (FP) PO SCH (10:14)
[2018-01-27] MEDS: QUEtiapine FUMARATE 200 MG TABLET PO SCH (10:15)
[2018-01-27] MEDS: TRIAMCINOLONE ACET 0.1% OINT 15 GM TUBE TP SCH ×4 (10:15→22:21)
[2018-01-27] MEDS: PANTOPRAZOLE 40 MG TABLET (FP) PO SCH (10:16)
[2018-01-27] MEDS: NICOTINE 21 MG/24 HOURS TOPICAL PATCH TD SCH (10:16)
[2018-01-27] MEDS: diazePAM 5 MG TABLET PO SCH ×2 (10:16→22:21)
[2018-01-27] MEDS: LIDOCAINE 5% TOPICAL PATCH TP SCH (10:17)
[2018-01-27] MEDS ORDERED: METHADONE 40 MG, METHADONE 30 MG, METHADONE 5 MG PO ONE (10:45)
--- NOTE | 2018-01-27 11:26 | PN ---
S CIWA - CIWA Score Nausea/Vomitin Muscle Tremors: 2 Anxiety: 3 Agitation: 2 Paroxysmal Sweats: 3 Orientation: 0-Oriented Tacttile Disturbances: 1-Very Mild Itch/Numbness Auditory Disturbances: 0-None Visual Disturbances: 0-None Headache: 0-None Present CIWA-Ar Total Score: 13 S Progress Note (SOAP) Subjective: interrupted sleep, sweats, constipation Objective: 01/27/18 11:25 Vital Signs Temperature 97.2 F L 01/27/18 09:40 Pulse Rate 92 H 01/27/18 09:40 Respiratory Rate 19 01/27/18 09:40 Blood Pressure 93/60 01/27/18 09:40 O2 Sat by Pulse Oximetry (%) Laboratory Tests 01/26/18 01/26/18 01/26/18 07:30 07:30 07:30 WBC 5.4 RBC 4.06 Hgb 12.6 Hct 37.3 MCV 91.9 MCH 31.1 MCHC 33.8 RDW 13.8 Plt Count 208 D MPV 8.8 Sodium 140 Potassium 4.6 Chloride 100 Carbon Dioxide 31 Anion Gap 9 BUN 19 H Creatinine 0.8 Creat Clearance w eGFR > 60 Random Glucose 87 Calcium 9.1 Total Bilirubin 0.4 D AST 14 L ALT 20 Alkaline Phosphatase 67 Total Protein 6.8 Albumin 3.3 L RPR Titer Nonreactive pt aox3 in nad ambulating Assessment: 01/27/18 11:26 withdrawal sx's constipation Plan: cont. detox increase fluids mom methadone 75mg /day- verified
[2018-01-27] MEDS ORDERED: METHADONE HCL 40 MG DISPERSABLE TABLET ONE (12:40)
[2018-01-27] MEDS ORDERED: METHADONE HCL 5 MG TABLET ONE (12:40)
[2018-01-27] MEDS ORDERED: METHADONE HCL 10 MG TABLET ONE (12:40)
[2018-01-27] MEDS: MAG HYDROX/AL HYDROX/SIMETH 30 ML UNIT-DOSE CUP PO PRN (15:11)
--- NOTE | 2018-01-27 17:46 | PN ---
[facility] Progress Note Note: Received call from Rose Webber RN that patient was confused when reading dinner menu earlier. Patient A & O X 2 (uncertain about day by 1 day). Patient denies H/A and she denies any history of head trauma. Patient reports that she does often tend to feel somewhat fatigued in evening due to fact that she tends to have considerable difficulty sleeping at night and that she sometimes sleeps during day. Patient also reports history of sleepwalking. Patient denies any unusual urinary symptoms (burning, pain, frequency, urgency). Ammonia level, UA ordered. chronic specialist Alex Gutierrez NP met with patient for consultation. Alex Nguyen NP
--- NOTE | 2018-01-27 21:37 | PN ---
Psychiatric Progress Note Vital Signs: Vital Signs Period Temp Pulse Resp BP Sys/Narvaez Pulse Ox Last 24 Hr 97.2 F-97.9 F 80-92 16-19 93-108/60-67 Date of Session: 01/27/18 Chief Complaint:: As per RN, patient with periods of confusion. HPI: Pt. admitted to for polysubstance dependence. ROS: Valproic level 109.9 Current Medications: Active Medications Generic Name Dose Route Start Last Admin Trade Name Freq PRN Reason Stop Dose Admin Acetaminophen 650 mg 01/25/18 17:23 Tylenol - PO Q4H PRN FEVER Al Hydroxide/Mg Hydroxide 30 ml 01/25/18 17:23 01/27/18 15:11 Mylanta Oral Suspension - PO 30 ml Q6H PRN Administration DYSPEPSIA Bupropion HCl 150 mg 01/26/18 10:00 01/27/18 10:16 Wellbutrin Xl - PO 150 mg DAILY WENDY Administration Buspirone HCl 15 mg 01/26/18 22:00 01/26/18 22:34 Buspar - PO 15 mg HS WENDY Administration Buspirone HCl 30 mg 01/26/18 10:00 01/27/18 10:16 Buspar - PO 30 mg DAILY WENDY Administration Cyclobenzaprine HCl 10 mg 01/25/18 17:27 01/26/18 22:34 Flexeril - PO 10 mg TID PRN Administration MUSCLE SPASMS Diazepam 10 mg 01/25/18 17:23 01/27/18 05:55 Valium - PO 01/28/18 17:22 10 mg Q4H PRN Administration WITHDRAWAL(CONT SUBST) Diazepam 5 mg 01/27/18 10:00 01/27/18 10:16 Valium - PO 01/28/18 22:01 5 mg BID WENDY Administration Diazepam 5 mg 01/29/18 10:00 Valium - PO 01/29/18 10:01 DAILY WENDY Divalproex Sodium 500 mg 01/28/18 10:00 Depakote - PO DAILY WENDY Eucalyptus/Menthol/Phenol/Sorbitol 1 each 01/25/18 17:23 Cepastat Lozenge - MM Q4H PRN SORE THROAT Guaifenesin 10 ml 01/25/18 17:23 Robitussin Dm - PO Q6H PRN COUGH Hydroxyzine Pamoate 25 mg 01/25/18 17:23 01/25/18 22:46 Vistaril - PO 25 mg Q4H PRN Administration AGITATION Ibuprofen 400 mg 01/25/18 17:23 Motrin - PO Q6H PRN PAIN LEVEL 4-6 Lidocaine 1 patch 01/26/18 12:06 01/27/18 10:17 Lidoderm Patch - TP 1 patch DAILY WENDY Administration Loperamide HCl 4 mg 01/25/18 17:23 01/26/18 14:44 Imodium - PO 4 mg Q6H PRN Administration DIARRHEA Magnesium Citrate 300 ml 01/25/18 17:23 Citroma - PO Q48H PRN CONSTIPATION Magnesium Hydroxide 30 ml 01/25/18 17:23 01/27/18 02:43 Milk Of Magnesia - PO 30 ml DAILY PRN Administration CONSTIPATION Melatonin 5 mg 01/25/18 22:00 01/26/18 22:35 Melatonin PO 5 mg HS WENDY Administration Methadone HCl 40 mg/ Methadone 75 mg 01/28/18 06:00 HCl 30 mg/ Methadone HCl 5 mg PO 02/03/18 06:01 DAILY@0600 WENDY Miscellaneous 1 each 01/26/18 22:00 01/26/18 22:34 Lidoderm Patch Removal MC Not Given DAILY@2200 WENDY Nicotine 21 mg 01/25/18 17:30 01/27/18 10:16 Nicoderm Patch - TD 21 mg DAILY WENDY Administration Nicotine Polacrilex 2 mg 01/25/18 17:23 01/27/18 19:35 Nicorette Gum - BC 2 mg Q2H PRN Administration NICOTINE REPLACEMENT RX Pantoprazole Sodium 40 mg 01/25/18 18:00 01/27/18 10:16 Protonix - PO 40 mg DAILY WENDY Administration Multivit/Folic Acid/Iron 1 tab 01/26/18 10:00 01/27/18 10:14 Vitamins (Sjr) - PO 1 tab DAILY WENDY Administration Pseudoephedrine/Triprolidine 1 combo 01/25/18 17:23 Actifed - PO TID PRN NASAL CONGESTION Quetiapine Fumarate 200 mg 01/26/18 10:00 01/27/18 10:15 Seroquel - PO 200 mg DAILY WENDY Administration Quetiapine Fumarate 400 mg 01/26/18 22:00 03/22/18 22:35 Seroquel - PO 400 mg HS WENDY Administration Thiamine HCl 100 mg 01/25/18 22:00 01/26/18 22:35 Vitamin B1 - PO 100 mg HS WENDY Administration Triamcinolone Acetonide 1 applic 01/26/18 14:00 01/27/18 17:35 Aristocort 0.1% Ointment - TP Not Given QID WENDY Medication(s) Change(s): Will hold depakote 500mg evening dose for 01/27/18 due to depakote level of 109.9. Pt. presented as lethargic to conventional underwriter. Patient reports feeling "groggy". As per MELANIE Rose patient had periods of appearing confused on the afternoon shift. Current Side Effect: No Lab tests ordered: No Lab tests reviewed: Yes (Depakote level 109.9) Provider note:: MELANIE Rose requesting patient be evaluated after reporting that patient appeared confused. Telephone Interviewer met with patient along with DEVI Reyes. Pt. alert and oriented X2 (unable to state the correct day or date) and appearing lethargic but able to answer questions appropriately with a bit of a delay. Pt. reports feeling groogy. Chart reviewed. Dr. Posada's entry read and appreciated. Pt. is currently prescribed depakote 500mg TID + Seroquel 400mg qhs + Seroquel 200mg PO Daily + Wellbutrin 150 XL+ Buspar 15 qhs +Buspar 30mg PO daily. Depakote level on 01/27 was 109.9. MELANIE Rose informed. At this time, 22:00 dose of depakote 500mg will be held and depakote level + ammonia level ( ordered by DEVI Fine) will be ordered for 01/28/18. Depakote 500mg PO daily + Depakote 750mg qhs to be ordered beginning on 01/28/18. Seroquel 200mg PO daily to be reduced to 100mg to prevent oversedation. Pt. agreeable with plan. Will continue to monitor patient. Total face to face time:: 35 Mental Status Exam - Mental Status Exam Alert and Oriented to: Time (Pt. did not know the date or day but did know the month and year. ), Place, Person Cognitive Function: Fair Patient Appearance: Well Groomed Mood: Euthymic Affect: Mood Congruent Patient Behavior: Fatigued (lethargic), Cooperative Speech Pattern: Clear, Delayed Voice Loudness: Normal, Mildly Soft/Quiet Thought Process: Goal Oriented Thought Disorder: Not Present Hallucinations: Denies Suicidal Ideation: Denies Homicidal Ideation: Denies Insight/Judgement: Poor Sleep: Fair Appetite: Fair Muscle strength/Tone: Normal Gait/Station: Normal Psychiatric Treatment Plan - Problem List (1) Bipolar disorder Current Visit: Yes (2) Cannabis dependence Current Visit: Yes (3) Cocaine dependence, uncomplicated Current Visit: Yes (4) Methadone maintenance therapy patient Current Visit: Yes
[2018-01-27] MEDS: QUEtiapine FUMARATE 400 MG TABLET PO SCH (22:21)
[2018-01-27] MEDS: MELATONIN 5 MG TABLETS PO SCH (22:21)
[2018-01-27] MEDS: LIDOCAINE PATCH REMOVAL MC SCH (22:21)
[2018-01-27] MEDS: THIAMINE HCL 100 MG TABLET (FP) PO SCH (22:22)
[2018-01-28] MEDS ORDERED: METHADONE HCL 5 MG TABLET ONE (04:58)
[2018-01-28] MEDS ORDERED: METHADONE HCL 40 MG DISPERSABLE TABLET ONE (04:58)
[2018-01-28] MEDS ORDERED: METHADONE HCL 10 MG TABLET ONE (04:58)
[2018-01-28] MEDS: METHADONE 40 MG, METHADONE 30 MG, METHADONE 5 MG PO SCH (05:59)
[2018-01-28] MEDS ORDERED: METHADONE HCL 40 MG DISPERSABLE TABLET PO SCH (06:00)
[2018-01-28] MEDS: NICOTINE POLACRILEX 2 MG GUM BC PRN ×4 (06:12→22:23)
[2018-01-28] MEDS ORDERED: QUEtiapine FUMARATE 100 MG TABLET (FP) PO SCH (08:26)
[2018-01-28 09:55] LABS: URINE APPEARANCE CLOUDY; URINE BILIRUBIN NEGATIVE (<2.0 mg/dL); URINE BLOOD NEGATIVE (NEGATIVE); URINE COLOR AMBER; URINE GLUCOSE (UA) NEGATIVE (NEGATIVE); URINE KETONE NEGATIVE (NEGATIVE); URINE NITRITE NEGATIVE (NEGATIVE); URINE UROBILINOGEN NEGATIVE mg/dL (0.2-1.0)
[2018-01-28 09:56] LABS: URINE LEUK ESTERASE 2+ (NEGATIVE); URINE PROTEIN 1+ (NEGATIVE)
[2018-01-28] MEDS ORDERED: DIVALPROEX SODIUM 500 MG TABLET E.C. PO SCH (10:00)
[2018-01-28 10:01] LABS: EPI CELLS MANY /HPF (FEW); URINE MUCUS RARE
[2018-01-28] MEDS: PRENATAL VITAMINS W/ FOLIC ACID TABLET (FP) PO SCH (10:39)
[2018-01-28] MEDS: PANTOPRAZOLE 40 MG TABLET (FP) PO SCH (10:39)
[2018-01-28] MEDS: TRIAMCINOLONE ACET 0.1% OINT 15 GM TUBE TP SCH ×4 (10:40→22:19)
[2018-01-28] MEDS: diazePAM 5 MG TABLET PO SCH ×2 (10:40→22:20)
[2018-01-28] MEDS: NICOTINE 21 MG/24 HOURS TOPICAL PATCH TD SCH (10:40)
[2018-01-28] MEDS: LIDOCAINE 5% TOPICAL PATCH TP SCH (10:41)
--- NOTE | 2018-01-28 14:35 | PN ---
[facility] Progress Note (SOAP) Subjective: constipation shakes Objective: 01/28/18 14:31 sleepy, arousable, A & O x 3 Vital Signs Temperature 98.4 F 01/28/18 11:58 Pulse Rate 91 H 01/28/18 11:58 Respiratory Rate 16 01/28/18 11:58 Blood Pressure 127/69 01/28/18 11:58 O2 Sat by Pulse Oximetry (%) Laboratory Last Values WBC 5.4 K/mm3 (4.0-10.0) 01/26/18 07:30 RBC 4.06 M/mm3 (3.60-5.2) 01/26/18 07:30 Hgb 12.6 GM/dL (10.7-15.3) 01/26/18 07:30 Hct 37.3 % (32.4-45.2) 01/26/18 07:30 MCV 91.9 fl (80-96) 01/26/18 07:30 MCH 31.1 pg (25.7-33.7) 01/26/18 07:30 MCHC 33.8 g/dl (32.0-36.0) 01/26/18 07:30 RDW 13.8 % (11.6-15.6) 01/26/18 07:30 Plt Count 208 K/MM3 (134-434) D 01/26/18 07:30 MPV 8.8 fl (7.5-11.1) 01/26/18 07:30 Sodium 140 mmol/L (136-145) 01/26/18 07:30 Potassium 4.6 mmol/L (3.5-5.1) 01/26/18 07:30 Chloride 100 mmol/L (98-107) 01/26/18 07:30 Carbon Dioxide 31 mmol/L (21-32) 01/26/18 07:30 Anion Gap 9 (8-16) 01/26/18 07:30 BUN 19 mg/dL (7-18) H 01/26/18 07:30 Creatinine 0.8 mg/dL (0.55-1.02) 01/26/18 07:30 Creat Clearance w eGFR > 60 (>60) 01/26/18 07:30 Random Glucose 87 mg/dL (74-106) 01/26/18 07:30 Calcium 9.1 mg/dL (8.5-10.1) 01/26/18 07:30 Total Bilirubin 0.4 mg/dL (0.2-1.0) D 01/26/18 07:30 AST 14 U/L (15-37) L 01/26/18 07:30 ALT 20 U/L (12-78) 01/26/18 07:30 Alkaline Phosphatase 67 U/L (45-117) 01/26/18 07:30 Ammonia 59.33 umol/L (11-32) H 01/28/18 07:40 Total Protein 6.8 g/dl (6.4-8.2) 01/26/18 07:30 Albumin 3.3 g/dl (3.4-5.0) L 01/26/18 07:30 Urine Color Katie 01/28/18 09:00 Urine Appearance Cloudy 01/28/18 09:00 Urine pH 5.0 (5.0-8.0) 01/28/18 09:00 Ur Specific [place] 1.025 (1.001-1.035) 01/28/18 09:00 Urine Protein 1+ (NEGATIVE) H 01/28/18 09:00 Urine Glucose (UA) Negative (NEGATIVE) 01/28/18 09:00 Urine Ketones Negative (NEGATIVE) 01/28/18 09:00 Urine Blood Negative (NEGATIVE) 01/28/18 09:00 Urine Nitrite Negative (NEGATIVE) 01/28/18 09:00 Urine Bilirubin Negative (<2.0 mg/dL) 01/28/18 09:00 Urine Urobilinogen Negative mg/dL (0.2-1.0) 01/28/18 09:00 Ur Leukocyte Esterase 2+ (NEGATIVE) H 01/28/18 09:00 Urine WBC (Auto) 26 /hpf (3-5) 01/28/18 09:00 Urine RBC (Auto) 5 /hpf (0-3) 01/28/18 09:00 Ur Epithelial Cells Many /HPF (FEW) 01/28/18 09:00 Urine Mucus Rare 01/28/18 09:00 Valproic Acid 109.940 ug/ml (50-100) H 01/27/18 09:30 RPR Titer Nonreactive (NONREACTIVE) 01/26/18 07:30 labs noted, high ammonia levels, positive urine leukocyte- denies UTI symptoms Assessment: 01/28/18 14:35 withdrawal sx Plan: continue detox lactulose increased hydration repeat labs/ UA
[2018-01-28] MEDS ORDERED: LACTULOSE 20 GM/30 ML UDC (FOR ORAL USE ONLY) PO ONE (15:00)
[2018-01-28] MEDS: hydrOXYzine PAMOATE 25 MG CAPSULE (FP) PO PRN (18:34)
--- NOTE | 2018-01-28 19:36 | PN ---
[facility] Progress Note Note: Psychiatric nurse practitioner: Ammonia level ordered for 01/28/18 after patient appeared lethargic and RN Gomez reported that patient appeared confused throughout periods of the afternoon shift. Ammonia level result this mornin.9. Fire Sprinkler Apparatus Inspector spoke to RN this morning and reported that patient appears sedated and was having difficulty staying awake. As per nursing note this afternoon, patient "observed sleeping on and off the unit while walking and standing". Seroquel morning dose to be discontinued and evening Seroquel dose to be lowered from 400mg qhs to 300mg qhs. Depakote dose to be reduced to 500mg BID. Wellbutrin 150mg XL to be d/c and restarted on 01/30/18 depending on result of ammonia level. Buspar morning dose to be reduced to 15mg PO daily. Valproic level pending and ammonia level ordered by DEVI Krueger for 01/29/18. Will continue to monitor.
[2018-01-28] MEDS ORDERED: DIVALPROEX SODIUM 250 MG TABLET E.C. PO SCH (22:00)
[2018-01-28] MEDS: DIVALPROEX SODIUM 500 MG TABLET E.C. PO SCH (22:19)
[2018-01-28] MEDS: LIDOCAINE PATCH REMOVAL MC SCH (22:20)
[2018-01-28] MEDS: QUEtiapine FUMARATE 300 MG TABLET PO SCH (22:20)
[2018-01-28] MEDS: MELATONIN 5 MG TABLETS PO SCH (22:20)
[2018-01-28] MEDS: CYCLOBENZAPRINE HCL 10 MG TABLET (FP) PO PRN (22:20)
[2018-01-28] MEDS: THIAMINE HCL 100 MG TABLET (FP) PO SCH (22:21)
[2018-01-28] MEDS: MAG HYDROX/AL HYDROX/SIMETH 30 ML UNIT-DOSE CUP PO PRN (22:23)
[2018-01-29] MEDS ORDERED: METHADONE HCL 40 MG DISPERSABLE TABLET ONE (04:51)
[2018-01-29] MEDS ORDERED: METHADONE HCL 5 MG TABLET ONE (04:51)
[2018-01-29] MEDS ORDERED: METHADONE HCL 10 MG TABLET ONE (04:51)
[2018-01-29] MEDS: METHADONE 40 MG, METHADONE 30 MG, METHADONE 5 MG PO SCH (05:52)
[2018-01-29] MEDS: NICOTINE POLACRILEX 2 MG GUM BC PRN ×4 (05:56→22:38)
--- NOTE | 2018-01-29 09:46 | DS ---
[facility] Detox Discharge Summary Admission Date: 01/25/18 Discharge Date: 01/29/18 - Physical Exam Results Vital Signs: Vital Signs Temperature 97.9 F 01/29/18 06:00 Pulse Rate 84 01/29/18 06:00 Respiratory Rate 18 01/29/18 06:00 Blood Pressure 112/61 01/29/18 06:00 O2 Sat by Pulse Oximetry (%) - Medication Discharge Medications: Ambulatory Orders Bupropion HCl [Wellbutrin Xl -] 150 mg PO DAILY #30 tab.sr.24h 01/26/18 Buspirone HCl [Buspar -] 15 mg PO HS #30 tablet 01/26/18 Buspirone HCl [Buspar -] 30 mg PO DAILY #30 tablet 01/26/18 Quetiapine Fumarate [Seroquel -] 200 mg PO DAILY #30 tablet 01/26/18 Quetiapine Fumarate [Seroquel -] 400 mg PO HS #30 tablet 01/26/18
--- NOTE | 2018-01-29 09:49 | DS ---
[facility] Detox Discharge Summary Admission Date: 01/25/18 Discharge Date: 01/29/18 - History Present History: Sedative Dependence Additional Comments: patient admitted for klonopin detox patient completed detox regimen tolerated well patient acknowledged ammonia level agrees to follow up with psychiatrist and primary care provider patient wants to follow up with his methadone program 75 mg po daily and discuss ammonia with the provider - Physical Exam Results Vital Signs: Vital Signs Temperature 97.9 F 01/29/18 06:00 Pulse Rate 84 01/29/18 06:00 Respiratory Rate 18 01/29/18 06:00 Blood Pressure 112/61 01/29/18 06:00 O2 Sat by Pulse Oximetry (%) Pertinent Admission Physical Exam Findings: withdrawal sx Vital Signs Temperature 97.9 F 01/29/18 06:00 Pulse Rate 84 01/29/18 06:00 Respiratory Rate 18 01/29/18 06:00 Blood Pressure 112/61 01/29/18 06:00 O2 Sat by Pulse Oximetry (%) Laboratory Last Values WBC 5.4 K/mm3 (4.0-10.0) 01/26/18 07:30 RBC 4.06 M/mm3 (3.60-5.2) 01/26/18 07:30 Hgb 12.6 GM/dL (10.7-15.3) 01/26/18 07:30 Hct 37.3 % (32.4-45.2) 01/26/18 07:30 MCV 91.9 fl (80-96) 01/26/18 07:30 MCH 31.1 pg (25.7-33.7) 01/26/18 07:30 MCHC 33.8 g/dl (32.0-36.0) 01/26/18 07:30 RDW 13.8 % (11.6-15.6) 01/26/18 07:30 Plt Count 208 K/MM3 (134-434) D 01/26/18 07:30 MPV 8.8 fl (7.5-11.1) 01/26/18 07:30 Sodium 140 mmol/L (136-145) 01/26/18 07:30 Potassium 4.6 mmol/L (3.5-5.1) 01/26/18 07:30 Chloride 100 mmol/L (98-107) 01/26/18 07:30 Carbon Dioxide 31 mmol/L (21-32) 01/26/18 07:30 Anion Gap 9 (8-16) 01/26/18 07:30 BUN 19 mg/dL (7-18) H 01/26/18 07:30 Creatinine 0.8 mg/dL (0.55-1.02) 01/26/18 07:30 Creat Clearance w eGFR > 60 (>60) 01/26/18 07:30 Random Glucose 87 mg/dL (74-106) 01/26/18 07:30 Calcium 9.1 mg/dL (8.5-10.1) 01/26/18 07:30 Total Bilirubin 0.4 mg/dL (0.2-1.0) D 01/26/18 07:30 AST 14 U/L (15-37) L 01/26/18 07:30 ALT 20 U/L (12-78) 01/26/18 07:30 Alkaline Phosphatase 67 U/L (45-117) 01/26/18 07:30 Ammonia 59.33 umol/L (11-32) H 01/28/18 07:40 Total Protein 6.8 g/dl (6.4-8.2) 01/26/18 07:30 Albumin 3.3 g/dl (3.4-5.0) L 01/26/18 07:30 Urine Color Katie 01/28/18 09:00 Urine Appearance Cloudy 01/28/18 09:00 Urine pH 5.0 (5.0-8.0) 01/28/18 09:00 Ur Specific [place] 1.025 (1.001-1.035) 01/28/18 09:00 Urine Protein 1+ (NEGATIVE) H 01/28/18 09:00 Urine Glucose (UA) Negative (NEGATIVE) 01/28/18 09:00 Urine Ketones Negative (NEGATIVE) 01/28/18 09:00 Urine Blood Negative (NEGATIVE) 01/28/18 09:00 Urine Nitrite Negative (NEGATIVE) 01/28/18 09:00 Urine Bilirubin Negative (<2.0 mg/dL) 01/28/18 09:00 Urine Urobilinogen Negative mg/dL (0.2-1.0) 01/28/18 09:00 Ur Leukocyte Esterase 2+ (NEGATIVE) H 01/28/18 09:00 Urine WBC (Auto) 26 /hpf (3-5) 01/28/18 09:00 Urine RBC (Auto) 5 /hpf (0-3) 01/28/18 09:00 Ur Epithelial Cells Many /HPF (FEW) 01/28/18 09:00 Urine Mucus Rare 01/28/18 09:00 Valproic Acid 109.940 ug/ml (50-100) H 01/27/18 09:30 RPR Titer Nonreactive (NONREACTIVE) 01/26/18 07:30 lab noted depakote adjusted lactulose treated elevated ammonia serum - Treatment Hospital Course: Detox Protocol Followed, Detoxed Safely, Responded well, Discharged Condition Good, Rehab Referral Accepted Patient has Accepted a Re[facility] Referral to: [facility] - Medication Discharge Medications: Ambulatory Orders Bupropion HCl [Wellbutrin Xl -] 150 mg PO DAILY #30 tab.sr.24h 01/26/18 Buspirone HCl [Buspar -] 15 mg PO HS #30 tablet 01/26/18 Buspirone HCl [Buspar -] 30 mg PO DAILY #30 tablet 01/26/18 Quetiapine Fumarate [Seroquel -] 200 mg PO DAILY #30 tablet 01/26/18 Quetiapine Fumarate [Seroquel -] 400 mg PO HS #30 tablet 01/26/18 Methadone [Dolophine -] 75 mg PO DAILY 01/29/18 - Diagnosis (1) Methadone maintenance therapy patient Current Visit: Yes Status: Chronic (2) Bipolar 1 disorder Current Visit: Yes Status: Suspected (3) Nicotine dependence Current Visit: Yes Status: Acute Qualifiers: Nicotine product type: cigarettes Substance use status: in withdrawal Qualified Code(s): F17.213 - Nicotine dependence, cigarettes, with withdrawal - AMA Did Patient Leave Against Medical Advice: No
[2018-01-29] MEDS ORDERED: diazePAM 5 MG TABLET PO SCH (10:00)
[2018-01-29] MEDS: PRENATAL VITAMINS W/ FOLIC ACID TABLET (FP) PO SCH (10:39)
[2018-01-29] MEDS: DIVALPROEX SODIUM 500 MG TABLET E.C. PO SCH ×2 (10:39→22:36)
[2018-01-29] MEDS: TRIAMCINOLONE ACET 0.1% OINT 15 GM TUBE TP SCH ×4 (10:39→22:36)
[2018-01-29] MEDS: NICOTINE 21 MG/24 HOURS TOPICAL PATCH TD SCH (10:40)
[2018-01-29] MEDS: PANTOPRAZOLE 40 MG TABLET (FP) PO SCH (10:40)
[2018-01-29] MEDS: LIDOCAINE 5% TOPICAL PATCH TP SCH (10:41)
--- NOTE | 2018-01-29 12:19 | PN ---
S Progress Note Note: ammonia 51 received one dose lactulose ammonia 84.9 restart lactulose qid hold today discharge reassess 01/30/18
[2018-01-29] MEDS: LACTULOSE 20 GM/30 ML UDC (FOR ORAL USE ONLY) PO SCH ×3 (14:14→22:36)
[2018-01-29] MEDS: CYCLOBENZAPRINE HCL 10 MG TABLET (FP) PO PRN ×2 (14:16→22:40)
[2018-01-29] MEDS: hydrOXYzine PAMOATE 25 MG CAPSULE (FP) PO PRN ×2 (18:02→22:40)
[2018-01-29] MEDS: MELATONIN 5 MG TABLETS PO SCH (22:35)
[2018-01-29] MEDS: LIDOCAINE PATCH REMOVAL MC SCH (22:36)
[2018-01-29] MEDS: QUEtiapine FUMARATE 300 MG TABLET PO SCH (22:36)
[2018-01-29] MEDS: THIAMINE HCL 100 MG TABLET (FP) PO SCH (22:36)
[2018-01-30] MEDS ORDERED: METHADONE HCL 5 MG TABLET ONE (05:21)
[2018-01-30] MEDS ORDERED: METHADONE HCL 40 MG DISPERSABLE TABLET ONE (05:21)
[2018-01-30] MEDS ORDERED: METHADONE HCL 10 MG TABLET ONE (05:22)
[2018-01-30] MEDS: METHADONE 40 MG, METHADONE 30 MG, METHADONE 5 MG PO SCH (06:01)
[2018-01-30] MEDS: NICOTINE POLACRILEX 2 MG GUM BC PRN ×2 (06:04→10:08)
--- NOTE | 2018-01-30 09:50 | PN ---
[facility] Progress Note (SOAP) Subjective: diarrhea shakes Objective: 01/30/18 09:44 A & O x 3 gait steady No acute distress Vital Signs Temperature 98.6 F 01/30/18 06:54 Pulse Rate 81 01/30/18 06:54 Respiratory Rate 16 01/30/18 06:54 Blood Pressure 123/60 01/30/18 06:54 O2 Sat by Pulse Oximetry (%) Laboratory Last Values WBC 5.4 K/mm3 (4.0-10.0) 01/26/18 07:30 RBC 4.06 M/mm3 (3.60-5.2) 01/26/18 07:30 Hgb 12.6 GM/dL (10.7-15.3) 01/26/18 07:30 Hct 37.3 % (32.4-45.2) 01/26/18 07:30 MCV 91.9 fl (80-96) 01/26/18 07:30 MCH 31.1 pg (25.7-33.7) 01/26/18 07:30 MCHC 33.8 g/dl (32.0-36.0) 01/26/18 07:30 RDW 13.8 % (11.6-15.6) 01/26/18 07:30 Plt Count 208 K/MM3 (134-434) D 01/26/18 07:30 MPV 8.8 fl (7.5-11.1) 01/26/18 07:30 Sodium 140 mmol/L (136-145) 01/26/18 07:30 Potassium 4.6 mmol/L (3.5-5.1) 01/26/18 07:30 Chloride 100 mmol/L (98-107) 01/26/18 07:30 Carbon Dioxide 31 mmol/L (21-32) 01/26/18 07:30 Anion Gap 9 (8-16) 01/26/18 07:30 BUN 19 mg/dL (7-18) H 01/26/18 07:30 Creatinine 0.8 mg/dL (0.55-1.02) 01/26/18 07:30 Creat Clearance w eGFR > 60 (>60) 01/26/18 07:30 Random Glucose 87 mg/dL (74-106) 01/26/18 07:30 Calcium 9.1 mg/dL (8.5-10.1) 01/26/18 07:30 Total Bilirubin 0.4 mg/dL (0.2-1.0) D 01/26/18 07:30 AST 14 U/L (15-37) L 01/26/18 07:30 ALT 20 U/L (12-78) 01/26/18 07:30 Alkaline Phosphatase 67 U/L (45-117) 01/26/18 07:30 Ammonia 84.93 umol/L (11-32) H 01/29/18 07:45 Total Protein 6.8 g/dl (6.4-8.2) 01/26/18 07:30 Albumin 3.3 g/dl (3.4-5.0) L 01/26/18 07:30 Urine Color Katie 01/28/18 09:00 Urine Appearance Cloudy 01/28/18 09:00 Urine pH 5.0 (5.0-8.0) 01/28/18 09:00 Ur Specific [place] 1.025 (1.001-1.035) 01/28/18 09:00 Urine Protein 1+ (NEGATIVE) H 01/28/18 09:00 Urine Glucose (UA) Negative (NEGATIVE) 01/28/18 09:00 Urine Ketones Negative (NEGATIVE) 01/28/18 09:00 Urine Blood Negative (NEGATIVE) 01/28/18 09:00 Urine Nitrite Negative (NEGATIVE) 01/28/18 09:00 Urine Bilirubin Negative (<2.0 mg/dL) 01/28/18 09:00 Urine Urobilinogen Negative mg/dL (0.2-1.0) 01/28/18 09:00 Ur Leukocyte Esterase 2+ (NEGATIVE) H 01/28/18 09:00 Urine WBC (Auto) 26 /hpf (3-5) 01/28/18 09:00 Urine RBC (Auto) 5 /hpf (0-3) 01/28/18 09:00 Ur Epithelial Cells Many /HPF (FEW) 01/28/18 09:00 Urine Mucus Rare 01/28/18 09:00 Valproic Acid 66.545 ug/ml (50-100) 01/28/18 08:30 RPR Titer Nonreactive (NONREACTIVE) 01/26/18 07:30 High ammonia levels treated QID x 1 day, prescription to be given Assessment: 01/30/18 09:45 withdrawal sx detox successful Plan: Discharge 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
--- NOTE | 2018-01-30 09:54 | DS ---
[facility] Detox Discharge Summary Admission Date: 01/25/18 Discharge Date: 01/30/18 - History Additional Comments: Pt being discharged to go to [facility] rehab in [place] where bed has been confirmed available. Pt's amonia lel 86.44, pt A & O x 3, gait steady, not confused, states she has been going to bathroom frequently s/p Lactulose given Prescription lactulose also given for 7 days - Physical Exam Results Vital Signs: Vital Signs Temperature 98.6 F 01/30/18 06:54 Pulse Rate 81 01/30/18 06:54 Respiratory Rate 16 01/30/18 06:54 Blood Pressure 123/60 01/30/18 06:54 O2 Sat by Pulse Oximetry (%) Pertinent Admission Physical Exam Findings: withdrawal sx - Treatment Hospital Course: Detox Protocol Followed, Detoxed Safely, Responded well, Discharged Condition Good, Rehab Referral Accepted Patient has Accepted a Rehab Referral to: [facility] - Medication Discharge Medications: Ambulatory Orders Bupropion HCl [Wellbutrin Xl -] 150 mg PO DAILY #30 tab.sr.24h 01/26/18 Buspirone HCl [Buspar -] 15 mg PO HS #30 tablet 01/26/18 Buspirone HCl [Buspar -] 30 mg PO DAILY #30 tablet 01/26/18 Quetiapine Fumarate [Seroquel -] 200 mg PO DAILY #30 tablet 01/26/18 Quetiapine Fumarate [Seroquel -] 400 mg PO HS #30 tablet 01/26/18 Methadone [Dolophine -] 75 mg PO DAILY 01/29/18 Lactulose (Oral Use) [Cephulac -] 20 gm PO QID 7 Days #1 bottle 01/30/18 - Diagnosis (1) Sedative, hypnotic or anxiolytic dependence with withdrawal, uncomplicated Current Visit: No Status: Acute (2) Methadone maintenance therapy patient Current Visit: Yes Status: Chronic (3) Nicotine dependence Current Visit: Yes Status: Acute Qualifiers: Nicotine product type: cigarettes Substance use status: in withdrawal Qualified Code(s): F17.213 - Nicotine dependence, cigarettes, with withdrawal (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
[2018-01-30 09:58] VITALS: BP 104/72; PULSE 91; TEMP 97.7
[2018-01-30] MEDS ORDERED: METHADONE 40 MG, METHADONE 30 MG, METHADONE 5 MG PO SCH (10:00)
[2018-01-30] MEDS ORDERED: METHADONE HCL 40 MG DISPERSABLE TABLET PO SCH (10:00)
[2018-01-30] MEDS: PRENATAL VITAMINS W/ FOLIC ACID TABLET (FP) PO SCH (10:04)
[2018-01-30] MEDS: TRIAMCINOLONE ACET 0.1% OINT 15 GM TUBE TP SCH (10:05)
[2018-01-30] MEDS: DIVALPROEX SODIUM 500 MG TABLET E.C. PO SCH (10:05)
[2018-01-30] MEDS: PANTOPRAZOLE 40 MG TABLET (FP) PO SCH (10:05)
[2018-01-30] MEDS: NICOTINE 21 MG/24 HOURS TOPICAL PATCH TD SCH (10:06)
[2018-01-30] MEDS: LACTULOSE 20 GM/30 ML UDC (FOR ORAL USE ONLY) PO SCH (10:06)
[2018-01-30] MEDS: LIDOCAINE 5% TOPICAL PATCH TP SCH (10:09)
== END 2018-01-30 10:45 | disposition home or self-care (01) | DRG 773 ==
LOC: YASAS 15:33 → Y6N 17:12
PROVIDERS: ADMIT Internal Medicine; ATTEND Internal Medicine
PROC: HZ2ZZZZ Detoxification Services for Substance Abuse Treatment (ICD-10-PCS; principal; 2018-01-25)
DX: F13.230 Sedative, hypnotic or anxiolytic dependence with withdrawal, uncomplicated (principal); F11.20 Opioid dependence, uncomplicated; F14.20 Cocaine dependence, uncomplicated; F12.20 Cannabis dependence, uncomplicated; F17.213 Nicotine dependence, cigarettes, with withdrawal; F51.05 Insomnia due to other mental disorder; F31.89 Other bipolar disorder; F41.0 Panic disorder [episodic paroxysmal anxiety]; F41.1 Generalized anxiety disorder; F33.9 Major depressive disorder, recurrent, unspecified; K59.00 Constipation, unspecified; R22.41 Localized swelling, mass and lump, right lower limb; J45.909 Unspecified asthma, uncomplicated; K21.9 Gastro-esophageal reflux disease without esophagitis; Z87.898 Personal history of other specified conditions
CPT/HCPCS: 36415; 80053; 80164; 81003; 81015; 82140; 85027; 86593; 87086; 87389; 93005; 93010

== ENCOUNTER 2018-09-01 13:38 | Inpatient (IN) | payer OTHER ==
[2018-09-01 16:18] VITALS: BMI 34.5
--- NOTE | 2018-09-01 17:25 | HP ---
COWS - Scale Resting Pulse: 1= HI 81-100 Sweatin= No chills or Flushing Restless Observation: 3= Extraneous Movement Pupil Size: 1= Pupils >than Normal Bone or Joint Aches: 2= Severe Diffuse Aches Runny Nose/ Eye Tearin= Runny Nose/Eyes GI Upset > 30mins: 1= Stomach Cramp Tremor Observation: 1= Tremor [place], Not Seen Yawning Observation: 0= None Anxiety or Irritability: 2=Irritable/Anxious Goose Flesh Skin: 0=Smooth Skin COWS Score: 13 Admission ROS S - HPI Allergies/Adverse Reactions: Allergies Allergy/AdvReac Type Severity Reaction Status Date / Time No Known Allergies Allergy Verified 05/13/18 14:25 History of Present Illness: patient here requesting detox from benzo use , reports xaxn 2 mg x 6 -8 x/ day x 2 years , denies seizures , reports withdrawal symptoms if not taking , latest use yesterday , heroin use - 1-2 bags daily denies ivdu , on MMTP 180 mg q d x 1 yr in [facility] , cocaine x 2years , 1 bag / month . Denies other illicits or etoh . tobacco : 1 ppd , requesting nrt w/ gum and patch . pmhx : asthma ( hospitalized , [facility] ) on Ventolin and Symbicort psych : depression pshx : C-sx x 1 , appy lmp 08/23/18 upt neg .children age 8 , w/ sister , oldest 20 laurita 0.000 utox + DARIO , OPI, mtd, bzo legal : denies lives in residential program , referred to this facility 2/2 + urine tox . - Ebola screening Have you traveled outside of the country in the last 21 days: No Have you had contact with anyone from an Ebola affected area: No Have you been sick,other than usual withdrawal symptoms: No Do you have a fever: No - Review of Systems Constitutional: See HPI EENT: reports: See HPI Respiratory: reports: Shortness of Breath Cardiac: reports: No Symptoms Reported GI: reports: Other (gastritis history) : reports: No Symptoms Reported Musculoskeletal: reports: Back Pain Integumentary: reports: No Symptoms Reported Neuro: reports: Headache Endocrine: reports: No Symptoms Reported Hematology: reports: Anemia Psychiatric: reports: Mood/Affect Appropiate, Orientated x3, Agitated, Anxious Patient History - Patient Medical History Hx Anemia: No Hx Asthma: Yes (ALBUTERIOL INHALER) Hx Chronic Obstructive Pulmonary Disease (COPD): No Hx Cancer: No Hx Cardiac Disorders: No Hx Congestive Heart Failure: No Hx Hypertension: No Hx Hypercholesterolemia: No Hx Pacemaker: No HX Cerebrovascular Accident: No Hx Seizures: No Hx Dementia: No Hx Diabetes: No Hx Gastrointestinal Disorders: Yes (GERD) Hx Liver Disease: No Hx Genitourinary Disorders: No Hx Sexually Transmitted Disorders: No Hx Renal Disease (ESRD): No Hx Thyroid Disease: No Hx Human Immunodeficiency Virus (HIV): No (LAST 08/23 NEGATIVE) Hx Hepatitis C: No Hx Depression: Yes Hx Suicide Attempt: No Hx Bipolar Disorder: No Hx Schizophrenia: No - Patient Surgical History Past Surgical History: Yes Hx Neurologic Surgery: No Hx Cataract Extraction: No Hx Cardiac Surgery: No Hx Lung Surgery: No Hx Breast Surgery: No Hx Breast Biopsy: No Hx Abdominal Surgery: No Hx Appendectomy: No Hx Cholecystectomy: No Hx Genitourinary Surgery: No Hx Section: Yes (2009) Hx Orthopedic Surgery: No Hx Hysterectomy: No Other Surgical History: appendectomy at age 29,incision and drainage of abscess of right bartholin Anesthesia Reaction: No - PPD History Date: 05/15/18 Results: 0 MM - Reproductive History Last Menstrual Period: 08/26/17 - Smoking Cessation Smoking history: Current every day smoker Have you smoked in the past 12 months: Yes Aproximately how many cigarettes per day: 10 Cigars Per Day: 0 Hx Chewing Tobacco Use: No Initiated information on smoking cessation: No Family Disease History - Family Disease History Family Disease History: Diabetes: Grandparent (), Heart Disease: Grandparent, Mother (asthma,VA,HTN/), Respiratory: Mother, Daughter ( three daughters (ages 7, 7 and 19(), Other: Father (/HIV), Mother, Brother (three - healthy), Sister (four - healthy), Daughter Admission Physical Exam BHS - Vital Signs Vital Signs: Vital Signs - 24 hr 09/01/18 16:16 Temperature 98.1 F Pulse Rate 91 H Respiratory 20 Rate Blood Pressure 134/92 - Physical General Appearance: Yes: Moderate Distress, Anxious HEENTM: Yes: Hearing grossly Normal, Normocephalic, Normal Voice Respiratory: Yes: Chest Non-Tender, Wheezing Neck: Yes: Trachea in good position, Thyroid enlarged Breast: Yes: Breast Exam Deferred Cardiology: Yes: Regular Rhythm, Regular Rate, Tachycardia Abdominal: Yes: Normal Bowel Sounds, Non Tender, Protuberent Genitourinary: Yes: Within Normal Limits Back: Yes: Normal Inspection Musculoskeletal: Yes: Gait Steady, Back pain Extremities: Yes: Normal Capillary Refill, Non-Tender Neurological: Yes: Fully Oriented, Motor Strength 5/5 Integumentary: Yes: Normal Color, Dry, Warm - Diagnostic (1) Opioid dependence on agonist therapy Current Visit: Yes Status: Acute (2) Opioid abuse Current Visit: No Status: Acute (3) Uncomplicated sedative, hypnotic or anxiolytic withdrawal Current Visit: No Status: Chronic (4) Asthma exacerbation Current Visit: Yes Status: Acute Qualifiers: Asthma severity: mild BHS Breath Alcohol Content Breath Alcohol Content: 0 Urine Pregancy Test - Result Urine Test Results: Negative- NO Line Present Urine Drug Screen - Results Drug Screen Negative: No Urine Drug Screen Results: DARIO-Cocaine, OPI-Opiates, BZO-Benzodiazepines, MTD- Methadone
[2018-09-01] MEDS ORDERED: guaiFENesin/D-METHORPHAN HB 10 ML UNIT-DOSE CUPS PO PRN (17:31)
[2018-09-01] MEDS ORDERED: MAGNESIUM CITRATE 300 ML BOTTLE PO PRN (17:31)
[2018-09-01] MEDS ORDERED: MENTHOL/PHENOL 1 EACH UD MM PRN (17:31)
[2018-09-01] MEDS ORDERED: MAGNESIUM HYDROX 2400MG/30ML ORAL SUSPENSION 30 ML CUP PO PRN (17:31)
[2018-09-01] MEDS ORDERED: IBUPROFEN 400 MG TABLET (FP) PO PRN (17:31)
[2018-09-01] MEDS ORDERED: P-EPHED 60MG/TRIPROLIDI 2.5MG TABLET PO PRN (17:31)
[2018-09-01] MEDS ORDERED: ACETAMINOPHEN 325 MG TABLET (FP) PO PRN (17:31)
[2018-09-01] MEDS ORDERED: NICOTINE POLACRILEX 2 MG GUM BC PRN (17:31)
[2018-09-01] MEDS ORDERED: ALBUTEROL SO4 0.083% IH SOL 2.5 MG/3 ML VIAL.NEB. NEB PRN (17:36)
[2018-09-01] MEDS ORDERED: LIDOCAINE 5% TOPICAL PATCH TP PRN (17:37)
[2018-09-01] MEDS: NICOTINE 7 MG/24 HOURS TOPICAL PATCH TD SCH (20:43)
[2018-09-01] MEDS: diazePAM 5 MG TABLET PO PRN (21:01)
[2018-09-01] MEDS: NICOTINE POLACRILEX 2 MG GUM BC PRN (21:03)
[2018-09-01] MEDS ORDERED: MELATONIN 5 MG TABLETS PO PRN (22:00)
[2018-09-01] MEDS: BUDESONIDE/FORMETEROL FUMARATE 160/4.5 mcg INHALER IH SCH (22:32)
[2018-09-01] MEDS: THIAMINE HCL 100 MG TABLET (FP) PO SCH (22:32)
[2018-09-01] MEDS: diazePAM 5 MG TABLET PO SCH (22:32)
[2018-09-01] MEDS: LIDOCAINE PATCH REMOVAL MC SCH (23:35)
[2018-09-02] MEDS: diazePAM 5 MG TABLET PO PRN ×2 (01:24→10:17)
[2018-09-02] MEDS: NICOTINE POLACRILEX 2 MG GUM BC PRN ×7 (01:25→23:18)
[2018-09-02] MEDS: diazePAM 5 MG TABLET PO SCH ×3 (05:48→22:10)
[2018-09-02] MEDS ORDERED: METHADONE HCL 40 MG DISPERSABLE TABLET PO SCH (10:00)
[2018-09-02] MEDS: CYCLOBENZAPRINE HCL 10 MG TABLET (FP) PO PRN (10:16)
[2018-09-02] MEDS: PRENATAL VITAMINS W/ FOLIC ACID TABLET (FP) PO SCH (10:16)
[2018-09-02] MEDS: NICOTINE 7 MG/24 HOURS TOPICAL PATCH TD SCH (10:17)
[2018-09-02] MEDS ORDERED: METHADONE HCL 10 MG TABLET ONE (10:20)
[2018-09-02] MEDS ORDERED: METHADONE HCL 40 MG DISPERSABLE TABLET ONE (10:20)
[2018-09-02] MEDS: BUDESONIDE/FORMETEROL FUMARATE 160/4.5 mcg INHALER IH SCH ×2 (10:22→22:09)
[2018-09-02] MEDS: ALBUTEROL SO4 8 GM HFA INHALER IH PRN (10:22)
[2018-09-02 10:26] LABS: HEMATOCRIT 35.8 % (32.4-45.2); HEMOGLOBIN 11.8 GM/dL (10.7-15.3); MCH 29.1 pg (25.7-33.7); MCHC 32.9 g/dl (32.0-36.0); MEAN CELL VOLUME 88.3 fl (80-96); MEAN PLT VOLUME 7.4 fl (7.5-11.1); PLATELET COUNT 276 K/MM3 (134-434); RBC 4.06 M/mm3 (3.60-5.2); RDW 13.1 % (11.6-15.6); WHITE BLOOD COUNT 9.4 K/mm3 (4.0-10.0)
[2018-09-02] MEDS ORDERED: METHADONE 160 MG, METHADONE 20 MG PO ONE (10:30)
[2018-09-02 11:02] LABS: ALBUMIN 3.1 g/dl (3.4-5.0); ALK PHOS 80 U/L (45-117); ANION GAP 9 MMOL/L (8-16); BILIRUBIN,TOTAL 0.3 mg/dL (0.2-1); BLOOD UREA NITROGEN 16 mg/dL (7-18); CALCIUM 8.3 mg/dL (8.5-10.1); CHLORIDE 105 mmol/L (98-107); CO2 28 mmol/L (21-32); CREATININE 0.7 mg/dL (0.55-1.3); GLUCOSE,RANDOM 84 mg/dL (74-106); POTASSIUM 4.3 mmol/L (3.5-5.1); SGOT/AST 15 U/L (15-37); SGPT/ALT 27 U/L (13-61); SODIUM 143 mmol/L (136-145); TOT PROT 6.7 g/dl (6.4-8.2)
[2018-09-02] MEDS: hydrOXYzine PAMOATE 25 MG CAPSULE (FP) PO PRN (12:58)
[2018-09-02 13:04] LABS: URINE APPEARANCE CLEAR; URINE BILIRUBIN NEGATIVE (<2.0 mg/dL); URINE COLOR YELLOW; URINE GLUCOSE (UA) NEGATIVE (NEGATIVE); URINE KETONE NEGATIVE (NEGATIVE); URINE LEUK ESTERASE 1+ (NEGATIVE); URINE NITRITE NEGATIVE (NEGATIVE); URINE PROTEIN NEGATIVE (NEGATIVE)
[2018-09-02 13:20] LABS: EPI CELLS FEW /HPF (FEW); URINE MUCUS RARE
--- NOTE | 2018-09-02 14:11 | CONSULT ---
[facility] Psychiatric Consult - Data Date of interview: 09/02/18 Admission source: [facility] Identifying data: Patient is a 38 year old single female, mother of three, unemployed (denies receiving financial assistance), and is residing in a residental facility. This is one of multiple admissions for patient. Patient admitted to for cocaine, opioid and benzodiazepine dependence. Substance Abuse History: Smoking Cessation. Smoking history: Current every day smoker. Have you smoked in the past 12 months: Yes. Aproximately how many cigarettes per day: 10. Cigars Per Day: 0. Heroin- varies daily (1-2 bundles daily). Benzodiazepine- 8 sticks of xanac. cocaine- varies daily (4-5 bags daily). Hx Chewing Tobacco Use: No. Initiated information on smoking cessation : No Medical History: Asthma, Gerd, appendectomy at age 29,incision and drainage of abscess of right bartholin Psychiatric History: Patient denies h/o psychiatric hospitalizations. Outpatient psychiatric care is currently provided at [facility] but after calling patient's pharmacy it was confirmed that she receives OPD from the [facility] clinic. Self reports a diagnosis of Bipolar and anxiety disorder. She has also received outpatient psychiatric care from Dr. Gama in [facility]. States she is currently prescribed buspar 30mg BID + [address] 300mg BID + Latuda 40mg daily +Seroquel 400mg qhs + 200 dailymg Depakote 500mg TID.? Patient reports one suicide attempt in 2009 via cutting. At present reports poor sleep. Multiple pharmacies contacted to confirm patient's medications. Patient is currently on methdone maintenace of 180mg daily from the [facility] clinic. Physical/Sexual Abuse/Trauma History: denies. Mental Status Exam - Mental Status Exam Alert and Oriented to: Time, Place, Person Cognitive Function: Good Patient Appearance: Well Groomed Mood: Euthymic Affect: Mood Congruent Patient Behavior: Cooperative Speech Pattern: Appropriate Voice Loudness: Normal Thought Process: Intact, Goal Oriented Thought Disorder: Not Present Hallucinations: Denies Suicidal Ideation: Denies Homicidal Ideation: Denies Insight/Judgement: Poor Sleep: Poorly Appetite: Fair Muscle strength/Tone: Normal Gait/Station: Normal Psychiatric Findings - Problem List ([place] 1, 2,3) (1) Sedative, hypnotic or anxiolytic dependence with withdrawal, uncomplicated Current Visit: Yes Status: Acute (2) Opioid dependence on agonist therapy Current Visit: Yes Status: Chronic (3) Mood disorder Current Visit: Yes Status: Chronic (4) Substance-induced sleep disorder Current Visit: Yes Status: Acute (5) Cocaine dependence Current Visit: Yes Status: Chronic Qualifiers: Substance use status: uncomplicated Qualified Code(s): F14.20 - Cocaine dependence, uncomplicated (6) Anxiety disorder Current Visit: Yes Status: Chronic - Initial Treatment Plan Initial Treatment Plan: Psychoeducation provided. Detoxification in progress. [facility] pharmacy contacted at [phone] and able to speak to pharmacist. As per pharmacist patient's most recent electronic prescription was for wellbutrin 150mg Xl (07/13/18) and Seroquel 200mg (06/19/18). As per pharmacist patient also receives prescriptions from [facility] pharmacy. Event Representative transferred to [facility] at and able to speak to pharmacist . As per pharmacist patient was prescribed buspar 15mg BID, Depakote 500mg TID and Seroquel 400mg HS (all prescriptions from 07/11/18). As per pharmacist latuda + lithium has not been prescribed. Chart reviewed. Will order Buspar 15mg BID + Seroquel 100mg BID + Depakote 500mg BID. Will order Valproic acid level for 09/02/18.
--- NOTE | 2018-09-02 14:38 | PN ---
S CIWA - CIWA Score Nausea/Vomitin-Mild Nausea/No Vomiting Muscle Tremors: 4-Moderate,w/Arms Extend Anxiety: 1-Mildly Anxious Agitation: 4-Moderately Restless Paroxysmal Sweats: No Perspiration Orientation: 0-Oriented Tacttile Disturbances: 0-None Auditory Disturbances: 0-None Visual Disturbances: 0-None Headache: 0-None Present CIWA-Ar Total Score: 10 BHS Progress Note (SOAP) Subjective: States feels uncomfortable and anxious.See CIWA. C/o facial acne. States it itches a little and requesting cream that begins w/ a 'L'- unsure of name.. Objective: A&O x 3. Erythematous papular lesions on both cheeks (L) > (R) w/o exudate. Pacing floor. (+) tremors. Vital Signs 09/02/18 09/02/18 09/02/18 06:51 09:22 13:49 Temperature 97.3 F L 98.6 F 97.9 F Pulse Rate 77 79 109 H Respiratory 20 18 16 Rate Blood Pressure 118/83 134/86 151/92 Lab Results WBC 9.4 K/mm3 (4.0-10.0) 09/02/18 08:00 RBC 4.06 M/mm3 (3.60-5.2) 09/02/18 08:00 Hgb 11.8 GM/dL (10.7-15.3) 09/02/18 08:00 Hct 35.8 % (32.4-45.2) 09/02/18 08:00 MCV 88.3 fl (80-96) 09/02/18 08:00 MCHC 32.9 g/dl (32.0-36.0) 09/02/18 08:00 RDW 13.1 % (11.6-15.6) 09/02/18 08:00 Plt Count 276 K/MM3 (134-434) D 09/02/18 08:00 Sodium 143 mmol/L (136-145) 09/02/18 08:00 Potassium 4.3 mmol/L (3.5-5.1) 09/02/18 08:00 Chloride 105 mmol/L (98-107) 09/02/18 08:00 Carbon Dioxide 28 mmol/L (21-32) 09/02/18 08:00 Anion Gap 9 MMOL/L (8-16) 09/02/18 08:00 BUN 16 mg/dL (7-18) 09/02/18 08:00 Creatinine 0.7 mg/dL (0.55-1.3) 09/02/18 08:00 Random Glucose 84 mg/dL (74-106) 09/02/18 08:00 Calcium 8.3 mg/dL (8.5-10.1) L 09/02/18 08:00 Labs reviewed. Assessment: Facial acne. Opioid agonist therapy. Anxyolitic withdrawal. Plan: Methadone ordered based on MMTP dose verification. Lotrisone cream for facial acne Continue detox.
--- NOTE | 2018-09-02 14:46 | EKG ---
Test Reason : Blood Pressure : / mmHG Vent. Rate : 081 BPM Atrial Rate : 081 BPM P-R Int : 120 ms QRS Dur : 088 ms QT Int : 370 ms P-R-T Axes : 023 068 041 degrees QTc Int : 429 ms NORMAL SINUS RHYTHM SEPTAL INFARCT , AGE UNDETERMINED ABNORMAL ECG WHEN COMPARED WITH ECG OF 13-MAY-2018 15:14, NO SIGNIFICANT CHANGE WAS FOUND Confirmed by MD Ryne, Jl ([id number] on 09/02/2018 2:46:09 PM Referred By: Confirmed By:Jl Michele MD
[2018-09-02] MEDS: DIVALPROEX SODIUM 500 MG TABLET E.C. PO SCH (22:09)
[2018-09-02] MEDS: QUEtiapine FUMARATE 100 MG TABLET (FP) PO SCH (22:10)
[2018-09-02] MEDS: CLOTRIMAZOLE/BETAMET DIPROP 15 GM TUBE TP SCH (22:10)
[2018-09-02] MEDS: LIDOCAINE PATCH REMOVAL MC SCH (22:10)
[2018-09-02] MEDS: THIAMINE HCL 100 MG TABLET (FP) PO SCH (22:10)
[2018-09-03] MEDS: NICOTINE POLACRILEX 2 MG GUM BC PRN ×5 (00:40→15:49)
[2018-09-03] MEDS: MAG HYDROX/AL HYDROX/SIMETH 30 ML UNIT-DOSE CUP PO PRN (03:43)
[2018-09-03] MEDS: diazePAM 5 MG TABLET PO PRN ×3 (03:50→18:59)
[2018-09-03] MEDS ORDERED: METHADONE HCL 40 MG DISPERSABLE TABLET ONE (04:33)
[2018-09-03] MEDS ORDERED: METHADONE HCL 10 MG TABLET ONE (04:33)
[2018-09-03] MEDS: METHADONE 160 MG, METHADONE 20 MG PO SCH (05:20)
[2018-09-03] MEDS: QUEtiapine FUMARATE 100 MG TABLET (FP) PO SCH ×2 (10:16→22:09)
[2018-09-03] MEDS: DIVALPROEX SODIUM 500 MG TABLET E.C. PO SCH ×2 (10:16→22:09)
[2018-09-03] MEDS: CYCLOBENZAPRINE HCL 10 MG TABLET (FP) PO PRN (10:16)
[2018-09-03] MEDS: BUDESONIDE/FORMETEROL FUMARATE 160/4.5 mcg INHALER IH SCH ×2 (10:17→22:12)
[2018-09-03] MEDS: ALBUTEROL SO4 8 GM HFA INHALER IH PRN (10:17)
[2018-09-03] MEDS: diazePAM 5 MG TABLET PO SCH ×2 (10:17→22:09)
[2018-09-03] MEDS: PRENATAL VITAMINS W/ FOLIC ACID TABLET (FP) PO SCH (10:17)
--- NOTE | 2018-09-03 10:53 | PN ---
[facility] CIWA - CIWA Score Nausea/Vomitin-No Nausea/No Vomiting Muscle Tremors: 3 Anxiety: 2 Agitation: 1-Slight > Activity Paroxysmal Sweats: 1-Minimal Palms Moist Orientation: 0-Oriented Tacttile Disturbances: 1-Very Mild Itch/Numbness Auditory Disturbances: 0-None Visual Disturbances: 0-None Headache: 1-Very Mild CIWA-Ar Total Score: 9 S Progress Note (SOAP) Subjective: mild gi distress, tremor sweat anxiety restlessness Objective: 09/03/18 10:52 Vital Signs Temperature 98.8 F 09/03/18 09:41 Pulse Rate 89 09/03/18 09:41 Respiratory Rate 16 09/03/18 09:41 Blood Pressure 105/69 09/03/18 09:41 O2 Sat by Pulse Oximetry (%) Laboratory Last Values WBC 9.4 K/mm3 (4.0-10.0) 09/02/18 08:00 RBC 4.06 M/mm3 (3.60-5.2) 09/02/18 08:00 Hgb 11.8 GM/dL (10.7-15.3) 09/02/18 08:00 Hct 35.8 % (32.4-45.2) 09/02/18 08:00 MCV 88.3 fl (80-96) 09/02/18 08:00 MCH 29.1 pg (25.7-33.7) 09/02/18 08:00 MCHC 32.9 g/dl (32.0-36.0) 09/02/18 08:00 RDW 13.1 % (11.6-15.6) 09/02/18 08:00 Plt Count 276 K/MM3 (134-434) D 09/02/18 08:00 MPV 7.4 fl (7.5-11.1) L 09/02/18 08:00 Sodium 143 mmol/L (136-145) 09/02/18 08:00 Potassium 4.3 mmol/L (3.5-5.1) 09/02/18 08:00 Chloride 105 mmol/L (98-107) 09/02/18 08:00 Carbon Dioxide 28 mmol/L (21-32) 09/02/18 08:00 Anion Gap 9 MMOL/L (8-16) 09/02/18 08:00 BUN 16 mg/dL (7-18) 09/02/18 08:00 Creatinine 0.7 mg/dL (0.55-1.3) 09/02/18 08:00 Creat Clearance w eGFR > 60 (>60) 09/02/18 08:00 Random Glucose 84 mg/dL (74-106) 09/02/18 08:00 Calcium 8.3 mg/dL (8.5-10.1) L 09/02/18 08:00 Total Bilirubin 0.3 mg/dL (0.2-1) 09/02/18 08:00 AST 15 U/L (15-37) 09/02/18 08:00 ALT 27 U/L (13-61) 09/02/18 08:00 Alkaline Phosphatase 80 U/L (45-117) 09/02/18 08:00 Total Protein 6.7 g/dl (6.4-8.2) 09/02/18 08:00 Albumin 3.1 g/dl (3.4-5.0) L 09/02/18 08:00 Urine Color Yellow 09/02/18 09:30 Urine Appearance Clear 09/02/18 09:30 Urine pH 6.0 (5.0-8.0) 09/02/18 09:30 Ur Specific [place] 1.021 (1.010-1.035) 09/02/18 09:30 Urine Protein Negative (NEGATIVE) 09/02/18 09:30 Urine Glucose (UA) Negative (NEGATIVE) 09/02/18 09:30 Urine Ketones Negative (NEGATIVE) 09/02/18 09:30 Urine Blood Negative (NEGATIVE) 09/02/18 09:30 Urine Nitrite Negative (NEGATIVE) 09/02/18 09:30 Urine Bilirubin Negative (<2.0 mg/dL) 09/02/18 09:30 Urine Urobilinogen 2.0 mg/dL (0.2-1.0) H 09/02/18 09:30 Ur Leukocyte Esterase 1+ (NEGATIVE) H 09/02/18 09:30 Urine WBC (Auto) 1 /hpf (3-5) 09/02/18 09:30 Urine RBC (Auto) 2 /hpf (0-3) 09/02/18 09:30 Ur Epithelial Cells Few /HPF (FEW) 09/02/18 09:30 Urine Mucus Rare 09/02/18 09:30 RPR Titer Nonreactive (NONREACTIVE) 09/02/18 08:00 HIV 1&2 Antibody Screen Negative 09/02/18 08:00 HIV P24 Antigen Negative 09/02/18 08:00 lab noted Assessment: 09/03/18 10:52 withdrawal sx Plan: continue detox
[2018-09-03] MEDS: NICOTINE 7 MG/24 HOURS TOPICAL PATCH TD SCH ×2 (11:30)
[2018-09-03] MEDS: CLOTRIMAZOLE/BETAMET DIPROP 15 GM TUBE TP SCH (11:31)
[2018-09-03] MEDS: BACLOFEN 10 MG TABLET (FP) PO SCH ×2 (13:09→22:09)
[2018-09-03] MEDS: TRIAMCINOLONE ACET 0.1% OINT 15 GM TUBE TP SCH (13:20)
[2018-09-03] MEDS ORDERED: cloNIDine HCL 0.1 MG TABLET PO ONE (14:00)
[2018-09-03] MEDS: LIDOCAINE PATCH REMOVAL MC SCH (22:09)
[2018-09-03] MEDS: CLOTRIMAZOLE 1% VAGINAL CREAM WITH APPLICATOR 45 GM TUBE VG SCH (22:11)
[2018-09-03] MEDS: THIAMINE HCL 100 MG TABLET (FP) PO SCH (22:12)
[2018-09-04] MEDS ORDERED: METHADONE HCL 40 MG DISPERSABLE TABLET ONE (03:10)
[2018-09-04] MEDS ORDERED: METHADONE HCL 10 MG TABLET ONE (03:10)
[2018-09-04] MEDS: METHADONE 160 MG, METHADONE 20 MG PO SCH (05:27)
[2018-09-04] MEDS: BACLOFEN 10 MG TABLET (FP) PO SCH (05:28)
[2018-09-04] MEDS: NICOTINE POLACRILEX 2 MG GUM BC PRN ×5 (05:32→22:37)
[2018-09-04] MEDS: diazePAM 5 MG TABLET PO PRN ×3 (05:32→16:47)
[2018-09-04] MEDS: MAG HYDROX/AL HYDROX/SIMETH 30 ML UNIT-DOSE CUP PO PRN ×2 (08:45→22:54)
--- NOTE | 2018-09-04 09:59 | PN ---
BHS Progress Note (SOAP) Subjective: feeling better no tremor less sweat social with peers in day room Objective: 09/04/18 10:01 Vital Signs Temperature 97.3 F L 09/04/18 05:56 Pulse Rate 78 09/04/18 05:56 Respiratory Rate 18 09/04/18 05:56 Blood Pressure 146/54 L 09/04/18 05:56 O2 Sat by Pulse Oximetry (%) Laboratory Last Values WBC 9.4 K/mm3 (4.0-10.0) 09/02/18 08:00 RBC 4.06 M/mm3 (3.60-5.2) 09/02/18 08:00 Hgb 11.8 GM/dL (10.7-15.3) 09/02/18 08:00 Hct 35.8 % (32.4-45.2) 09/02/18 08:00 MCV 88.3 fl (80-96) 09/02/18 08:00 MCH 29.1 pg (25.7-33.7) 09/02/18 08:00 MCHC 32.9 g/dl (32.0-36.0) 09/02/18 08:00 RDW 13.1 % (11.6-15.6) 09/02/18 08:00 Plt Count 276 K/MM3 (134-434) D 09/02/18 08:00 MPV 7.4 fl (7.5-11.1) L 09/02/18 08:00 Sodium 143 mmol/L (136-145) 09/02/18 08:00 Potassium 4.3 mmol/L (3.5-5.1) 09/02/18 08:00 Chloride 105 mmol/L (98-107) 09/02/18 08:00 Carbon Dioxide 28 mmol/L (21-32) 09/02/18 08:00 Anion Gap 9 MMOL/L (8-16) 09/02/18 08:00 BUN 16 mg/dL (7-18) 09/02/18 08:00 Creatinine 0.7 mg/dL (0.55-1.3) 09/02/18 08:00 Creat Clearance w eGFR > 60 (>60) 09/02/18 08:00 Random Glucose 84 mg/dL (74-106) 09/02/18 08:00 Calcium 8.3 mg/dL (8.5-10.1) L 09/02/18 08:00 Total Bilirubin 0.3 mg/dL (0.2-1) 09/02/18 08:00 AST 15 U/L (15-37) 09/02/18 08:00 ALT 27 U/L (13-61) 09/02/18 08:00 Alkaline Phosphatase 80 U/L (45-117) 09/02/18 08:00 Total Protein 6.7 g/dl (6.4-8.2) 09/02/18 08:00 Albumin 3.1 g/dl (3.4-5.0) L 09/02/18 08:00 Urine Color Yellow 09/02/18 09:30 Urine Appearance Clear 09/02/18 09:30 Urine pH 6.0 (5.0-8.0) 09/02/18 09:30 Ur Specific [place] 1.021 (1.010-1.035) 09/02/18 09:30 Urine Protein Negative (NEGATIVE) 09/02/18 09:30 Urine Glucose (UA) Negative (NEGATIVE) 09/02/18 09:30 Urine Ketones Negative (NEGATIVE) 09/02/18 09:30 Urine Blood Negative (NEGATIVE) 09/02/18 09:30 Urine Nitrite Negative (NEGATIVE) 09/02/18 09:30 Urine Bilirubin Negative (<2.0 mg/dL) 09/02/18 09:30 Urine Urobilinogen 2.0 mg/dL (0.2-1.0) H 09/02/18 09:30 Ur Leukocyte Esterase 1+ (NEGATIVE) H 09/02/18 09:30 Urine WBC (Auto) 1 /hpf (3-5) 09/02/18 09:30 Urine RBC (Auto) 2 /hpf (0-3) 09/02/18 09:30 Ur Epithelial Cells Few /HPF (FEW) 09/02/18 09:30 Urine Mucus Rare 09/02/18 09:30 Valproic Acid 10.9 ug/ml (50-100) L 09/03/18 08:00 RPR Titer Nonreactive (NONREACTIVE) 09/02/18 08:00 HIV 1&2 Antibody Screen Negative 09/02/18 08:00 HIV P24 Antigen Negative 09/02/18 08:00 calcium rich food lab noted Assessment: 09/04/18 10:02 mild withdrawal sx Plan: medically supervised detox
--- NOTE | 2018-09-04 10:16 | PN ---
Psychiatric Progress Note Vital Signs: Vital Signs Period Temp Pulse Resp BP Sys/Narvaez Pulse Ox Last 24 Hr 97.3 F-98.4 F 78-94 16-20 117-146/54-65 Date of Session: 09/04/18 Chief Complaint:: My home medications HPI: Patient reports not starting after admission on her preadmission meications , currently irritable, agitatios and anxious, patient asking to restart her preadmission medications,. Oversedations discussed with patient and she reports taking those preadsmission medications during previous detexifications with no sedative episodes. Rec;. Latuda 40mg poqd. Seroquel 100mg po bid to D /D. SEROQUEL 100MG POQD. SEROQUEL 300MG PO QHS Current Medications: Active Medications Generic Name Dose Route Start Last Admin Trade Name Freq PRN Reason Stop Dose Admin Acetaminophen 650 mg 09/01/18 17:31 Tylenol - PO Q4H PRN FEVER Al Hydroxide/Mg Hydroxide 30 ml 09/01/18 17:31 09/04/18 08:45 Mylanta Oral Suspension - PO 30 ml Q6H PRN Administration DYSPEPSIA Albuterol Sulfate 1 amp 09/01/18 17:36 09/03/18 00:38 Ventolin 0.083% Nebulizer Soln - NEB 1 amp Q4H PRN Administration SHORT OF BREATH/WHEEZING Albuterol Sulfate 2 puff 09/01/18 17:37 09/03/18 10:17 Ventolin Hfa Inhaler - IH 2 inhaler Q4H PRN Administration SHORT OF BREATH/WHEEZING Budesonide/Formoterol Fumarate 2 puff 09/01/18 22:00 09/03/18 22:12 Symbicort 160/4.5mcg - IH Not Given BID WENDY Buspirone HCl 15 mg 09/02/18 22:00 09/03/18 22:11 Buspar - PO Not Given BID WENDY Clotrimazole 1 applic 09/03/18 22:00 09/03/18 22:11 Gyne-Lotrimin - VG 09/06/18 21:59 1 applic HS WENDY Administration Diazepam 10 mg 09/01/18 17:31 09/04/18 05:32 Valium - PO 09/04/18 17:30 10 mg Q4H PRN Administration WITHDRAWAL(CONT SUBST) Diazepam 5 mg 09/03/18 10:00 09/03/18 22:09 Valium - PO 09/04/18 22:01 5 mg BID WENDY Administration Diazepam 5 mg 09/05/18 10:00 Valium - PO 09/05/18 10:01 DAILY WENDY Divalproex Sodium 500 mg 09/02/18 22:00 09/03/18 22:09 Depakote - PO 500 mg BID WENDY Administration Eucalyptus/Menthol/Phenol/Sorbitol 1 each 09/01/18 17:31 Cepastat Lozenge - MM Q4H PRN SORE THROAT Guaifenesin 10 ml 09/01/18 17:31 Robitussin Dm - PO Q6H PRN COUGH Hydroxyzine Pamoate 25 mg 09/01/18 17:31 09/02/18 12:58 Vistaril - PO 25 mg Q4H PRN Administration AGITATION Ibuprofen 400 mg 09/01/18 17:31 Motrin - PO Q6H PRN PAIN LEVEL 4-6 Lidocaine 1 patch 09/04/18 10:00 Lidoderm Patch - TP DAILY [facility] Lurasidone HCl 40 mg 09/04/18 10:15 Latuda - PO DAILY [facility] Magnesium Citrate 300 ml 09/01/18 17:31 Citroma - PO Q48H PRN CONSTIPATION Magnesium Hydroxide 30 ml 09/01/18 17:31 09/02/18 12:58 Milk Of Magnesia - PO 30 ml DAILY PRN Administration CONSTIPATION Melatonin 5 mg 09/01/18 22:00 09/03/18 22:09 Melatonin PO 5 mg HS PRN Administration INSOMNIA Methadone HCl 160 mg/ 180 mg 09/03/18 06:00 09/04/18 05:27 Methadone HCl 20 mg PO 09/09/18 06:01 180 mg DAILY@0600 [facility] Administration Miscellaneous 1 each 09/01/18 22:00 09/03/18 22:09 Lidoderm Patch Removal MC Not Given DAILY@2200 [facility] Nicotine 21 mg 09/03/18 11:30 09/03/18 11:30 Nicoderm Patch - TD 21 mg DAILY WENDY Administration Nicotine Polacrilex 4 mg 09/01/18 17:36 09/04/18 08:42 Nicorette Gum - BC 4 mg Q2H PRN Administration NICOTINE REPLACEMENT RX Multivit/Folic Acid/Iron 1 tab 09/02/18 10:00 09/03/18 10:17 Vitamins (Sjr) - PO 1 tab DAILY WENDY Administration Pseudoephedrine/Triprolidine 1 combo 09/01/18 17:31 Actifed - PO TID PRN NASAL CONGESTION Quetiapine Fumarate 300 mg 09/04/18 22:00 Seroquel - PO HS WENDY Quetiapine Fumarate 100 mg 09/05/18 10:00 Seroquel - PO DAILY WENDY Thiamine HCl 100 mg 09/01/18 22:00 09/03/18 22:12 Vitamin B1 - PO 100 mg HS WENDY Administration Triamcinolone Acetonide 1 applic 09/03/18 12:00 09/03/18 13:20 Aristocort 0.1% Ointment - TP Not Given DAILY WENDY Medication(s) Change(s): Latuda 40mg poqd. Seroquel 100mg po bid to D/D. SEROQUEL 100MG POQD. SEROQUEL 300MG PO QHS Mental Status Exam - Mental Status Exam Alert and Oriented to: Place, Person Cognitive Function: Fair Patient Appearance: Unkempt Mood: Anxious, Irritable Affect: Labile Patient Behavior: Cooperative Speech Pattern: Appropriate Voice Loudness: Normal Thought Process: Goal Oriented Thought Disorder: Being Controlled Hallucinations: Denies Suicidal Ideation: Denies Homicidal Ideation: Denies Insight/Judgement: Fair Sleep: Difficulty falling asleep Appetite: Weight gain Muscle strength/Tone: Normal Gait/Station: Normal Additional Comments: Latuda 40mg poqd. Seroquel 100mg po bid to D/D. SEROQUEL 100MG POQD. SEROQUEL 300MG PO QHS Psychiatric Treatment Plan - Problem List (1) Asthma exacerbation Current Visit: Yes Qualifiers: Asthma severity: mild (2) Sedative, hypnotic or anxiolytic dependence with withdrawal, uncomplicated Current Visit: Yes (3) Acne Current Visit: Yes Qualifiers: Acne type: unspecified acne Qualified Code(s): L70.9 - Acne, unspecified (4) Cocaine dependence Current Visit: Yes Qualifiers: Substance use status: uncomplicated Qualified Code(s): F14.20 - Cocaine dependence, uncomplicated (5) Mood disorder Current Visit: Yes (6) Opioid dependence on agonist therapy Current Visit: Yes (7) Bipolar disorder Current Visit: No (8) Bipolar disorder, unspecified Current Visit: No (9) Nicotine dependence Current Visit: No Qualifiers: Nicotine product type: cigarettes Substance use status: in withdrawal Qualified Code(s): F17.213 - Nicotine dependence, cigarettes, with withdrawal (10) Opioid abuse Current Visit: No (11) Panic disorder Current Visit: No (12) Benzodiazepine abuse Current Visit: No (13) Cocaine dependence, uncomplicated Current Visit: No (14) GERD (gastroesophageal reflux disease) Current Visit: No Qualifiers: Esophagitis presence: without esophagitis Qualified Code(s): K21.9 - Gastro -esophageal reflux disease without esophagitis (15) MDD (major depressive disorder) Current Visit: No (16) Mass of right foot Current Visit: No (17) Methadone maintenance therapy patient Current Visit: No (18) Obesity Current Visit: No (19) PCP dependence Current Visit: No (20) Panic disorder with agoraphobia Current Visit: No (21) Bipolar 1 disorder Current Visit: No
[2018-09-04] MEDS: BUDESONIDE/FORMETEROL FUMARATE 160/4.5 mcg INHALER IH SCH ×2 (10:22→22:38)
[2018-09-04] MEDS: DIVALPROEX SODIUM 500 MG TABLET E.C. PO SCH ×2 (10:22→22:33)
[2018-09-04] MEDS: PRENATAL VITAMINS W/ FOLIC ACID TABLET (FP) PO SCH (10:22)
[2018-09-04] MEDS: diazePAM 5 MG TABLET PO SCH ×2 (10:23→22:34)
[2018-09-04] MEDS: NICOTINE 7 MG/24 HOURS TOPICAL PATCH TD SCH (10:23)
[2018-09-04] MEDS: LIDOCAINE 5% TOPICAL PATCH TP SCH (10:26)
--- NOTE | 2018-09-04 10:29 | PN ---
Psychiatric Progress Note Vital Signs: Vital Signs Period Temp Pulse Resp BP Sys/Narvaez Pulse Ox Last 24 Hr 97.3 F-98.4 F 78-94 16-20 111-146/54-68 Date of Session: 09/04/18 Chief Complaint:: SUBOXONE PREATMENT HPI: Patient motivate to be inducted for Suboxone treatment, currently on Methadone 15mg poqd, patient was explained Induction protocol and patient reports planning to got o Rehabilitation after Detox, and start Suboxone duering Rehab . Current Medications: Active Medications Generic Name Dose Route Start Last Admin Trade Name Freq PRN Reason Stop Dose Admin Acetaminophen 650 mg 09/01/18 17:31 Tylenol - PO Q4H PRN FEVER Al Hydroxide/Mg Hydroxide 30 ml 09/01/18 17:31 09/04/18 08:45 Mylanta Oral Suspension - PO 30 ml Q6H PRN Administration DYSPEPSIA Albuterol Sulfate 1 amp 09/01/18 17:36 09/03/18 00:38 Ventolin 0.083% Nebulizer Soln - NEB 1 amp Q4H PRN Administration SHORT OF BREATH/WHEEZING Albuterol Sulfate 2 puff 09/01/18 17:37 09/03/18 10:17 Ventolin Hfa Inhaler - IH 2 inhaler Q4H PRN Administration SHORT OF BREATH/WHEEZING Budesonide/Formoterol Fumarate 2 puff 09/01/18 22:00 09/03/18 22:12 Symbicort 160/4.5mcg - IH Not Given BID WENDY Buspirone HCl 15 mg 09/02/18 22:00 09/03/18 22:11 Buspar - PO Not Given BID WENDY Clotrimazole 1 applic 09/03/18 22:00 09/03/18 22:11 Gyne-Lotrimin - VG 09/06/18 21:59 1 applic HS WENDY Administration Diazepam 10 mg 09/01/18 17:31 09/04/18 05:32 Valium - PO 09/04/18 17:30 10 mg Q4H PRN Administration WITHDRAWAL(CONT SUBST) Diazepam 5 mg 09/03/18 10:00 09/03/18 22:09 Valium - PO 09/04/18 22:01 5 mg BID WENDY Administration Diazepam 5 mg 09/05/18 10:00 Valium - PO 09/05/18 10:01 DAILY WENDY Divalproex Sodium 500 mg 09/02/18 22:00 09/03/18 22:09 Depakote - PO 500 mg BID WENDY Administration Eucalyptus/Menthol/Phenol/Sorbitol 1 each 09/01/18 17:31 Cepastat Lozenge - MM Q4H PRN SORE THROAT Guaifenesin 10 ml 09/01/18 17:31 Robitussin Dm - PO Q6H PRN COUGH Hydroxyzine Pamoate 25 mg 09/01/18 17:31 09/02/18 12:58 Vistaril - PO 25 mg Q4H PRN Administration AGITATION Ibuprofen 400 mg 09/01/18 17:31 Motrin - PO Q6H PRN PAIN LEVEL 4-6 Lidocaine 1 patch 09/04/18 10:00 Lidoderm Patch - TP DAILY [facility] Lurasidone HCl 40 mg 09/04/18 10:15 Latuda - PO DAILY WENDY Magnesium Citrate 300 ml 09/01/18 17:31 Citroma - PO Q48H PRN CONSTIPATION Magnesium Hydroxide 30 ml 09/01/18 17:31 09/02/18 12:58 Milk Of Magnesia - PO 30 ml DAILY PRN Administration CONSTIPATION Melatonin 5 mg 09/01/18 22:00 09/03/18 22:09 Melatonin PO 5 mg HS PRN Administration INSOMNIA Methadone HCl 160 mg/ 180 mg 09/03/18 06:00 09/04/18 05:27 Methadone HCl 20 mg PO 09/09/18 06:01 180 mg DAILY@0600 WENDY Administration Miscellaneous 1 each 09/01/18 22:00 09/03/18 22:09 Lidoderm Patch Removal MC Not Given DAILY@2200 [facility] Nicotine 21 mg 09/03/18 11:30 09/03/18 11:30 Nicoderm Patch - TD 21 mg DAILY WENDY Administration Nicotine Polacrilex 4 mg 09/01/18 17:36 09/04/18 08:42 Nicorette Gum - BC 4 mg Q2H PRN Administration NICOTINE REPLACEMENT RX Multivit/Folic Acid/Iron 1 tab 09/02/18 10:00 09/03/18 10:17 Vitamins (Sjr) - PO 1 tab DAILY WENDY Administration Pseudoephedrine/Triprolidine 1 combo 09/01/18 17:31 Actifed - PO TID PRN NASAL CONGESTION Quetiapine Fumarate 300 mg 09/04/18 22:00 Seroquel - PO HS WENDY Quetiapine Fumarate 100 mg 09/05/18 10:00 Seroquel - PO DAILY WENDY Ranitidine HCl 150 mg 09/04/18 10:15 Zantac - PO BID WENDY Thiamine HCl 100 mg 09/01/18 22:00 09/03/18 22:12 Vitamin B1 - PO 100 mg HS WENDY Administration Triamcinolone Acetonide 1 applic 09/03/18 12:00 09/03/18 13:20 Aristocort 0.1% Ointment - TP Not Given DAILY WENDY Medication(s) Change(s): none Mental Status Exam - Mental Status Exam Alert and Oriented to: Place, Person Cognitive Function: Fair Patient Appearance: Well Groomed Mood: Apprehensive Affect: Appropriate Patient Behavior: Cooperative Speech Pattern: Appropriate Voice Loudness: Mildly Soft/Quiet Thought Process: Goal Oriented Thought Disorder: Being Controlled Hallucinations: Denies Suicidal Ideation: Denies Homicidal Ideation: Denies Insight/Judgement: Impaired Sleep: Difficulty falling asleep Appetite: Weight gain Muscle strength/Tone: Mild Hypotonicity Gait/Station: Shuffling Additional Comments: Continue treatment plan Psychiatric Treatment Plan - Problem List (1) Asthma exacerbation Current Visit: Yes Qualifiers: Asthma severity: mild (2) Sedative, hypnotic or anxiolytic dependence with withdrawal, uncomplicated Current Visit: Yes (3) Acne Current Visit: Yes Qualifiers: Acne type: unspecified acne Qualified Code(s): L70.9 - Acne, unspecified (4) Cocaine dependence Current Visit: Yes Qualifiers: Substance use status: uncomplicated Qualified Code(s): F14.20 - Cocaine dependence, uncomplicated (5) Mood disorder Current Visit: Yes (6) Opioid dependence on agonist therapy Current Visit: Yes (7) Bipolar disorder Current Visit: No (8) Bipolar disorder, unspecified Current Visit: No (9) Nicotine dependence Current Visit: No Qualifiers: Nicotine product type: cigarettes Substance use status: in withdrawal Qualified Code(s): F17.213 - Nicotine dependence, cigarettes, with withdrawal (10) Opioid abuse Current Visit: No (11) Panic disorder Current Visit: No (12) Benzodiazepine abuse Current Visit: No (13) Cocaine dependence, uncomplicated Current Visit: No (14) GERD (gastroesophageal reflux disease) Current Visit: No Qualifiers: Esophagitis presence: without esophagitis Qualified Code(s): K21.9 - Gastro -esophageal reflux disease without esophagitis (15) MDD (major depressive disorder) Current Visit: No (16) Mass of right foot Current Visit: No (17) Methadone maintenance therapy patient Current Visit: No (18) Obesity Current Visit: No (19) PCP dependence Current Visit: No (20) Panic disorder with agoraphobia Current Visit: No (21) Bipolar 1 disorder Current Visit: No Initial treatment plan: Continue treatment plan
[2018-09-04] MEDS: LURASIDONE HCL 40 MG TABLET PO SCH (11:08)
[2018-09-04] MEDS: TRIAMCINOLONE ACET 0.1% OINT 15 GM TUBE TP SCH (11:08)
[2018-09-04] MEDS: hydrOXYzine PAMOATE 25 MG CAPSULE (FP) PO PRN (14:40)
[2018-09-04] MEDS ORDERED: QUEtiapine FUMARATE 300 MG TABLET PO SCH (22:00)
[2018-09-04] MEDS: THIAMINE HCL 100 MG TABLET (FP) PO SCH (22:33)
[2018-09-04] MEDS: RANITIDINE HCL 150 MG TABLET (FP) PO SCH (22:33)
[2018-09-04] MEDS: LIDOCAINE PATCH REMOVAL MC SCH (22:37)
[2018-09-04] MEDS: CLOTRIMAZOLE 1% VAGINAL CREAM WITH APPLICATOR 45 GM TUBE VG SCH (23:55)
[2018-09-05] MEDS: NICOTINE POLACRILEX 2 MG GUM BC PRN ×3 (02:08→10:58)
[2018-09-05] MEDS: hydrOXYzine PAMOATE 25 MG CAPSULE (FP) PO PRN (02:09)
[2018-09-05] MEDS ORDERED: METHADONE HCL 40 MG DISPERSABLE TABLET ONE (04:58)
[2018-09-05] MEDS ORDERED: METHADONE HCL 10 MG TABLET ONE (04:59)
[2018-09-05] MEDS: METHADONE 160 MG, METHADONE 20 MG PO SCH (05:27)
[2018-09-05 09:42] VITALS: BP 125/73; PULSE 81; TEMP 97.7
[2018-09-05] MEDS ORDERED: cloNIDine HCL 0.1 MG TABLET PO ONE (10:00)
[2018-09-05] MEDS ORDERED: QUEtiapine FUMARATE 100 MG TABLET (FP) PO SCH (10:00)
[2018-09-05] MEDS ORDERED: diazePAM 5 MG TABLET PO SCH (10:00)
--- NOTE | 2018-09-05 10:28 | DS ---
[facility] Detox Discharge Summary Admission Date: 09/01/18 Discharge Date: 09/05/18 - History Present History: Alcohol Dependence, Sedative Dependence Additional Comments: 38 years old female admitted on 09/01/18 for alcohol and benzo withdrawal sx completed detox regimen today tolerated well denies withdrawal sx alert oriented x 3 no acute distress aftercare [facility] Physical Exam Results Vital Signs: Vital Signs Temperature 97.7 F 09/05/18 09:42 Pulse Rate 81 09/05/18 09:42 Respiratory Rate 18 09/05/18 09:42 Blood Pressure 125/73 09/05/18 09:42 O2 Sat by Pulse Oximetry (%) Pertinent Admission Physical Exam Findings: alcohol and bezone withdrawal sx Vital Signs Temperature 97.7 F 09/05/18 09:42 Pulse Rate 81 09/05/18 09:42 Respiratory Rate 18 09/05/18 09:42 Blood Pressure 125/73 09/05/18 09:42 O2 Sat by Pulse Oximetry (%) Laboratory Last Values WBC 9.4 K/mm3 (4.0-10.0) 09/02/18 08:00 RBC 4.06 M/mm3 (3.60-5.2) 09/02/18 08:00 Hgb 11.8 GM/dL (10.7-15.3) 09/02/18 08:00 Hct 35.8 % (32.4-45.2) 09/02/18 08:00 MCV 88.3 fl (80-96) 09/02/18 08:00 MCH 29.1 pg (25.7-33.7) 09/02/18 08:00 MCHC 32.9 g/dl (32.0-36.0) 09/02/18 08:00 RDW 13.1 % (11.6-15.6) 09/02/18 08:00 Plt Count 276 K/MM3 (134-434) D 09/02/18 08:00 MPV 7.4 fl (7.5-11.1) L 09/02/18 08:00 Sodium 143 mmol/L (136-145) 09/02/18 08:00 Potassium 4.3 mmol/L (3.5-5.1) 09/02/18 08:00 Chloride 105 mmol/L (98-107) 09/02/18 08:00 Carbon Dioxide 28 mmol/L (21-32) 09/02/18 08:00 Anion Gap 9 MMOL/L (8-16) 09/02/18 08:00 BUN 16 mg/dL (7-18) 09/02/18 08:00 Creatinine 0.7 mg/dL (0.55-1.3) 09/02/18 08:00 Creat Clearance w eGFR > 60 (>60) 09/02/18 08:00 Random Glucose 84 mg/dL (74-106) 09/02/18 08:00 Calcium 8.3 mg/dL (8.5-10.1) L 09/02/18 08:00 Total Bilirubin 0.3 mg/dL (0.2-1) 09/02/18 08:00 AST 15 U/L (15-37) 09/02/18 08:00 ALT 27 U/L (13-61) 09/02/18 08:00 Alkaline Phosphatase 80 U/L (45-117) 09/02/18 08:00 Total Protein 6.7 g/dl (6.4-8.2) 09/02/18 08:00 Albumin 3.1 g/dl (3.4-5.0) L 09/02/18 08:00 Urine Color Yellow 09/02/18 09:30 Urine Appearance Clear 09/02/18 09:30 Urine pH 6.0 (5.0-8.0) 09/02/18 09:30 Ur Specific [place] 1.021 (1.010-1.035) 09/02/18 09:30 Urine Protein Negative (NEGATIVE) 09/02/18 09:30 Urine Glucose (UA) Negative (NEGATIVE) 09/02/18 09:30 Urine Ketones Negative (NEGATIVE) 09/02/18 09:30 Urine Blood Negative (NEGATIVE) 09/02/18 09:30 Urine Nitrite Negative (NEGATIVE) 09/02/18 09:30 Urine Bilirubin Negative (<2.0 mg/dL) 09/02/18 09:30 Urine Urobilinogen 2.0 mg/dL (0.2-1.0) H 09/02/18 09:30 Ur Leukocyte Esterase 1+ (NEGATIVE) H 09/02/18 09:30 Urine WBC (Auto) 1 /hpf (3-5) 09/02/18 09:30 Urine RBC (Auto) 2 /hpf (0-3) 09/02/18 09:30 Ur Epithelial Cells Few /HPF (FEW) 09/02/18 09:30 Urine Mucus Rare 09/02/18 09:30 Valproic Acid 10.9 ug/ml (50-100) L 09/03/18 08:00 RPR Titer Nonreactive (NONREACTIVE) 09/02/18 08:00 HIV 1&2 Antibody Screen Negative 09/02/18 08:00 HIV P24 Antigen Negative 09/02/18 08:00 lab noted calcium rich food - Treatment Hospital Course: Detox Protocol Followed, Detoxed Safely, Responded well, Discharged Condition Good, Rehab Referral Accepted Patient has Accepted a Rehab Referral to: [facility] - Medication Discharge Medications: Ambulatory Orders Methadone [Dolophine -] 180 mg PO DAILY 01/29/18 Naproxen [Naprosyn -] 500 mg PO BID 05/13/18 Quetiapine Fumarate [Seroquel -] 200 mg PO DAILY #30 tab 05/22/18 Quetiapine Fumarate [Seroquel -] 400 mg PO HS #30 tab 05/22/18 [place] Carbonate [Eskalith -] 300 mg PO BID 09/01/18 Lurasidone HCl [Latuda -] 40 mg PO DAILY 09/01/18 Albuterol Sulfate Inhaler - [Ventolin HFA Inhaler -] 2 puff IH Q4H PRN #1 inhaler 09/04/18 Budesonide/Formeterol Fumarate [SYMBICORT 160/4.5mcg -] 2 puff IH BID #1 inhaler 09/04/18 Buspirone HCl [Buspar -] 30 mg PO BID #60 tablet 09/04/18 Divalproex [Depakote -] 500 mg PO BID #60 tablet.ec 09/04/18 Lurasidone HCl [Latuda -] 40 mg PO DAILY #30 tablet 09/04/18 Quetiapine Fumarate [Seroquel -] 300 mg PO HS #30 tablet 09/04/18 Quetiapine Fumarate [Seroquel] 100 mg PO DAILY #30 tablet 09/04/18 Ranitidine [Zantac -] 150 mg PO BID #20 tablet 09/04/18 - Diagnosis (1) Sedative, hypnotic or anxiolytic dependence with withdrawal, uncomplicated Current Visit: Yes Status: Acute (2) Opioid dependence on agonist therapy Current Visit: Yes Status: Chronic (3) Bipolar disorder Current Visit: Yes Status: Suspected Qualifiers: Active/Remission status: in partial remission Most recent bipolar episode type: mixed Qualified Code(s): F31.77 - Bipolar disorder, in partial remission , most recent episode mixed (4) Nicotine dependence Current Visit: Yes Status: Acute Qualifiers: Nicotine product type: cigarettes Substance use status: in withdrawal Qualified Code(s): F17.213 - Nicotine dependence, cigarettes, with withdrawal (5) Benzodiazepine abuse Current Visit: Yes Status: Acute (6) GERD (gastroesophageal reflux disease) Current Visit: Yes Status: Chronic Qualifiers: Esophagitis presence: without esophagitis Qualified Code(s): K21.9 - Gastro -esophageal reflux disease without esophagitis (7) Methadone maintenance therapy patient Current Visit: Yes Status: Chronic (8) Bipolar 1 disorder Current Visit: Yes Status: Suspected - AMA Did Patient Leave Against Medical Advice: No
[2018-09-05] MEDS: RANITIDINE HCL 150 MG TABLET (FP) PO SCH ×2 (10:55→11:38)
[2018-09-05] MEDS: DIVALPROEX SODIUM 500 MG TABLET E.C. PO SCH (10:55)
[2018-09-05] MEDS: TRIAMCINOLONE ACET 0.1% OINT 15 GM TUBE TP SCH (10:56)
[2018-09-05] MEDS: LURASIDONE HCL 40 MG TABLET PO SCH (10:56)
[2018-09-05] MEDS: PRENATAL VITAMINS W/ FOLIC ACID TABLET (FP) PO SCH (10:56)
[2018-09-05] MEDS: NICOTINE 7 MG/24 HOURS TOPICAL PATCH TD SCH (10:56)
[2018-09-05] MEDS: BUDESONIDE/FORMETEROL FUMARATE 160/4.5 mcg INHALER IH SCH (10:57)
[2018-09-05] MEDS: LIDOCAINE 5% TOPICAL PATCH TP SCH (11:00)
== END 2018-09-05 11:26 | disposition other institution (70) | DRG 773 ==
LOC: YASAS 13:38 → Y6N 19:14
PROC: HZ2ZZZZ Detoxification Services for Substance Abuse Treatment (ICD-10-PCS; principal; 2018-09-01)
DX: F13.230 Sedative, hypnotic or anxiolytic dependence with withdrawal, uncomplicated (principal); F16.20 Hallucinogen dependence, uncomplicated; F11.20 Opioid dependence, uncomplicated; F17.213 Nicotine dependence, cigarettes, with withdrawal; F31.77 Bipolar disorder, in partial remission, most recent episode mixed; F39 Unspecified mood [affective] disorder; F41.0 Panic disorder [episodic paroxysmal anxiety]; K21.9 Gastro-esophageal reflux disease without esophagitis; J45.901 Unspecified asthma with (acute) exacerbation; R22.41 Localized swelling, mass and lump, right lower limb; E66.9 Obesity, unspecified; Z68.34 Body mass index [BMI] 34.0-34.9, adult
CPT/HCPCS: 36415; 80053; 80164; 81003; 81015; 85027; 86593; 87389; 93005; 93010; 94640; J0475; J0735

== ENCOUNTER 2018-09-05 11:30 | Inpatient (IN) | payer OTHER ==
--- NOTE | 2018-09-05 10:17 | HP ---
[facility] Re[facility] Assess/Revision - Admission History Admitted to Rehab from: [facility] [place] Date of Admission to Rehab: 09/05/18 - Findings Detox History & Physical reviewed: Yes Concur with findings: Yes Comments/Additional Findings: transferred from detox to rehab admission as per protocol Inpatient Rehab Admission - Initial Determination Are CD services needed?: Yes Free of communicable disease: Yes Not in need of hospitalization: Yes - Rehab Admission Criteria Previous failed treatment: Yes Poor recovery environment: Yes Comorbidities: Yes Lacks judgement: No Patient is meeting Inpatient Rehab admission criteria:: Yes
[~2018-09-05 11:30] MED LIST: ACETAMINOPHEN 325 MG TABLET (FP) PO PRN; LOPERAMIDE HCL 2 MG CAPSULE PO PRN; MAGNESIUM CITRATE 300 ML BOTTLE PO PRN; MAGNESIUM HYDROX 2400MG/30ML ORAL SUSPENSION 30 ML CUP PO PRN; MENTHOL/PHENOL 1 EACH UD MM PRN; P-EPHED 60MG/TRIPROLIDI 2.5MG TABLET PO PRN; guaiFENesin/D-METHORPHAN HB 10 ML UNIT-DOSE CUPS PO PRN
[2018-09-05] MEDS ORDERED: NICOTINE 14 MG/24 HOURS TOPICAL PATCH TD PRN (11:45)
[2018-09-05] MEDS ORDERED: PNEUMOC 13-VAL CONJ-DIP CRM/PF 0.5 ML DISP.SYRIN IM ONE (11:52)
[2018-09-05 11:54] VITALS: BMI 37.4
[2018-09-05] MEDS ORDERED: COLLOIDAL OATMEAL 1 BAR EACH TP PRN (12:28)
[2018-09-05] MEDS: NICOTINE POLACRILEX 2 MG GUM BUC PRN ×4 (14:30→23:27)
[2018-09-05] MEDS: MAG HYDROX/AL HYDROX/SIMETH 30 ML UNIT-DOSE CUP PO PRN ×2 (14:30→18:43)
[2018-09-05] MEDS: DIVALPROEX SODIUM 500 MG TABLET E.C. PO SCH (21:13)
[2018-09-05] MEDS: RANITIDINE HCL 150 MG TABLET (FP) PO SCH (21:13)
[2018-09-05] MEDS: THIAMINE HCL 100 MG TABLET (FP) PO SCH (21:13)
[2018-09-05] MEDS: QUEtiapine FUMARATE 300 MG TABLET PO SCH (21:13)
[2018-09-05] MEDS: LIDOCAINE PATCH REMOVAL MC SCH (21:14)
[2018-09-05] MEDS: CLOTRIMAZOLE 1% CREAM 15 GM TUBE TP SCH (21:14)
[2018-09-05] MEDS: BUDESONIDE/FORMETEROL FUMARATE 160/4.5 mcg INHALER IH SCH (21:45)
[2018-09-05] MEDS ORDERED: MELATONIN 5 MG TABLETS PO PRN (22:00)
[2018-09-05] MEDS ORDERED: NAPROXEN 500 MG TABLET (FP) PO SCH (22:00)
[2018-09-06] MEDS: NICOTINE POLACRILEX 2 MG GUM BUC PRN ×4 (06:23→18:12)
[2018-09-06] MEDS ORDERED: SUCRALFATE 1 GM/10 ML UNIT DOSE CUPS PO PRN (07:00)
[2018-09-06] MEDS ORDERED: METHADONE HCL 10 MG TABLET ONE (08:11)
[2018-09-06] MEDS ORDERED: METHADONE HCL 40 MG DISPERSABLE TABLET ONE (08:12)
[2018-09-06] MEDS ORDERED: PT OWN MED DRAWER 7, Y5N ONE ×2 (08:14→21:30)
[2018-09-06] MEDS: METHADONE 160 MG, METHADONE 20 MG PO SCH (09:26)
[2018-09-06] MEDS: DIVALPROEX SODIUM 500 MG TABLET E.C. PO SCH ×2 (09:27→21:27)
[2018-09-06] MEDS: MINERAL OIL/PETROLAT/WATER TOPICAL CREAM 113 GM JAR TP SCH (09:28)
[2018-09-06] MEDS: LURASIDONE HCL 40 MG TABLET PO SCH (09:28)
[2018-09-06] MEDS: LIDOCAINE 5% TOPICAL PATCH TP SCH (09:29)
[2018-09-06] MEDS: CLOTRIMAZOLE 1% CREAM 15 GM TUBE TP SCH ×2 (09:30→21:31)
[2018-09-06] MEDS: QUEtiapine FUMARATE 100 MG TABLET (FP) PO SCH (09:30)
[2018-09-06] MEDS: BUDESONIDE/FORMETEROL FUMARATE 160/4.5 mcg INHALER IH SCH ×2 (09:30→21:30)
[2018-09-06] MEDS: PRENATAL VITAMINS W/ FOLIC ACID TABLET (FP) PO SCH (09:30)
[2018-09-06] MEDS: RANITIDINE HCL 150 MG TABLET (FP) PO SCH ×2 (09:31→21:27)
[2018-09-06] MEDS ORDERED: METHADONE HCL 40 MG DISPERSABLE TABLET PO SCH (10:00)
[2018-09-06] MEDS: TRIAMCINOLONE ACET 0.1% CREAM 15 GM TUBE TP SCH ×2 (11:00→21:31)
--- NOTE | 2018-09-06 11:04 | HP ---
Psychiatrist Admission - Data Date of interview: 09/06/18 Admission source: [address] [place] [address] Identifying data: This is the first admission to [address] [place] [address] for this 38 years old H single female mother of 3 (7 yo twins girls and 20 yo girl).Children resides with the patient's sister,resides in Residential placement,supported by [facility]. Medical History: MARY [place]. Psychiatric History: Patient reports long history of depression,mood instability ,anxiety,drug use.She was dx with Bipolar disorder.Patient reports no psychiatric hospitalizatios.She was under psychiatric OPD care at [facility] Day rehabilition program in the [place],but recently decided to continue her aftercare at [facility].Patient willl continue current medications: Latuda 40 mg po daily,Depakote 500 mg po bid,Seroquel 100 mg po am and 300 mg po hs.. Physical/Sexual Abuse/Trauma History: denies Vital Signs: Vital Signs - 24 hr 09/05/18 09/06/18 09/06/18 13:57 00:40 03:45 Temperature 98.4 F Pulse Rate 82 Respiratory 18 20 20 Rate Blood Pressure 106/69 09/06/18 06:53 Temperature 97.5 F L Pulse Rate 83 Respiratory 18 Rate Blood Pressure 104/71 Allergies/Adverse Reactions: Allergies Allergy/AdvReac Type Severity Reaction Status Date / Time No Known Allergies Allergy Verified 09/01/18 20:00 Date of last physical exam: 09/01/18 Concur with the findings of this exam: Yes - Substance Abuse/Tx History Hx Alcohol Use: No (socially) Hx Substance Use: Yes (heroin 33,PCP stopped years ago,cocaine since 17 yo) Substance Use Type: Cocaine, Heroin, Marijuana, Opiates, Tranquilizers Hx Substance Use Treatment: Yes (longest sobriety 3 years ) Mental Status Exam - Mental Status Exam Alert and Oriented to: Time, Place, Person Cognitive Function: Grossly Intact Patient Appearance: Unkempt Mood: Sad, Anxious, Irritable Affect: Labile Patient Behavior: Cooperative Speech Pattern: Clear Voice Loudness: Normal Thought Process: Goal Oriented Thought Disorder: Not Present Hallucinations: Denies Suicidal Ideation: Denies Homicidal Ideation: Denies Insight/Judgement: Fair Sleep: Difficulty falling asleep Appetite: Fair Muscle strength/Tone: Normal Gait/Station: Normal Psychiatric Findings - Problem List ([place] 1, 2,3) (1) Bipolar disorder, unspecified Current Visit: Yes Status: Deleted (2) Cannabis dependence Current Visit: Yes Status: Chronic (3) Nicotine dependence Current Visit: No Status: Chronic Qualifiers: Nicotine product type: cigarettes Substance use status: in withdrawal Qualified Code(s): F17.213 - Nicotine dependence, cigarettes, with withdrawal (4) Opioid dependence Current Visit: Yes Status: Chronic (5) PCP dependence Current Visit: Yes Status: Chronic (6) Bipolar 1 disorder Current Visit: Yes Status: Chronic (7) Anxiolytic dependence Current Visit: Yes Status: Acute (8) Opioid dependence on agonist therapy Current Visit: No Status: Chronic (9) Cocaine dependence Current Visit: Yes Status: Chronic - Initial Treatment Plan Initial Treatment Plan: Continue current medications as per plan.Consider switch Depakote for LITHIUM as per patient's request(better response to Li in the past).
[2018-09-06] MEDS: MAG HYDROX/AL HYDROX/SIMETH 30 ML UNIT-DOSE CUP PO PRN ×2 (11:49→18:10)
[2018-09-06] MEDS ORDERED: FLU VACCINE QUAD 60 MCG/0.5 ML (MDV 18-19) IM ONE (12:00)
[2018-09-06] MEDS ORDERED: PNEUMOCOCCAL 23 VACCINE 0.5 ML VIAL IM ONE (12:00)
[2018-09-06] MEDS: QUEtiapine FUMARATE 300 MG TABLET PO SCH (21:27)
[2018-09-06] MEDS: THIAMINE HCL 100 MG TABLET (FP) PO SCH (21:27)
[2018-09-06] MEDS: LIDOCAINE PATCH REMOVAL MC SCH (21:28)
[2018-09-07] MEDS: NAPROXEN 250 MG TABLET (FP) PO PRN (02:06)
[2018-09-07] MEDS ORDERED: PT OWN MED DRAWER 7, Y5N ONE ×2 (02:06→08:57)
[2018-09-07] MEDS: MAG HYDROX/AL HYDROX/SIMETH 30 ML UNIT-DOSE CUP PO PRN ×3 (02:07→19:04)
[2018-09-07] MEDS: NICOTINE POLACRILEX 2 MG GUM BUC PRN ×3 (02:07→12:26)
[2018-09-07] MEDS ORDERED: METHADONE HCL 10 MG TABLET ONE (09:37)
[2018-09-07] MEDS ORDERED: METHADONE HCL 40 MG DISPERSABLE TABLET ONE (09:39)
[2018-09-07] MEDS: LIDOCAINE 5% TOPICAL PATCH TP SCH (09:48)
[2018-09-07] MEDS: LURASIDONE HCL 40 MG TABLET PO SCH (09:49)
[2018-09-07] MEDS: QUEtiapine FUMARATE 100 MG TABLET (FP) PO SCH (09:50)
[2018-09-07] MEDS: DIVALPROEX SODIUM 500 MG TABLET E.C. PO SCH ×2 (09:50→22:00)
[2018-09-07] MEDS: PRENATAL VITAMINS W/ FOLIC ACID TABLET (FP) PO SCH (09:50)
[2018-09-07] MEDS: RANITIDINE HCL 150 MG TABLET (FP) PO SCH ×2 (09:50→22:00)
[2018-09-07] MEDS: BUDESONIDE/FORMETEROL FUMARATE 160/4.5 mcg INHALER IH SCH ×2 (09:51→22:00)
[2018-09-07] MEDS: TRIAMCINOLONE ACET 0.1% CREAM 15 GM TUBE TP SCH ×2 (09:52→22:03)
[2018-09-07] MEDS: MINERAL OIL/PETROLAT/WATER TOPICAL CREAM 113 GM JAR TP SCH (09:52)
[2018-09-07] MEDS: METHADONE 160 MG, METHADONE 20 MG PO SCH (09:52)
[2018-09-07] MEDS: CLOTRIMAZOLE 1% CREAM 15 GM TUBE TP SCH ×2 (09:52→22:03)
[2018-09-07] MEDS ORDERED: NICOTINE 14 MG/24 HOURS TOPICAL PATCH TD SCH (10:00)
[2018-09-07] MEDS: hydrOXYzine PAMOATE 50 MG CAPSULE (FP) PO PRN ×2 (12:25→19:05)
[2018-09-07] MEDS: NICOTINE POLACRILEX 4 MG GUM BUC PRN ×2 (19:06→22:01)
[2018-09-07] MEDS: THIAMINE HCL 100 MG TABLET (FP) PO SCH (22:00)
[2018-09-07] MEDS: QUEtiapine FUMARATE 300 MG TABLET PO SCH (22:00)
[2018-09-07] MEDS: LIDOCAINE PATCH REMOVAL MC SCH (22:01)
[2018-09-08] MEDS: hydrOXYzine PAMOATE 50 MG CAPSULE (FP) PO PRN ×3 (06:25→18:18)
[2018-09-08] MEDS: NICOTINE POLACRILEX 4 MG GUM BUC PRN ×4 (06:25→21:34)
[2018-09-08] MEDS ORDERED: METHADONE HCL 40 MG DISPERSABLE TABLET ONE (08:45)
[2018-09-08] MEDS ORDERED: METHADONE HCL 10 MG TABLET ONE (08:45)
[2018-09-08] MEDS: DIVALPROEX SODIUM 500 MG TABLET E.C. PO SCH ×2 (09:55→21:33)
[2018-09-08] MEDS: RANITIDINE HCL 150 MG TABLET (FP) PO SCH ×2 (09:55→21:33)
[2018-09-08] MEDS: PRENATAL VITAMINS W/ FOLIC ACID TABLET (FP) PO SCH (09:55)
[2018-09-08] MEDS: BUDESONIDE/FORMETEROL FUMARATE 160/4.5 mcg INHALER IH SCH ×2 (09:55→21:37)
[2018-09-08] MEDS: QUEtiapine FUMARATE 100 MG TABLET (FP) PO SCH (09:55)
[2018-09-08] MEDS: TRIAMCINOLONE ACET 0.1% CREAM 15 GM TUBE TP SCH ×2 (09:55→21:36)
[2018-09-08] MEDS: MINERAL OIL/PETROLAT/WATER TOPICAL CREAM 113 GM JAR TP SCH (09:56)
[2018-09-08] MEDS: LIDOCAINE 5% TOPICAL PATCH TP SCH (09:56)
[2018-09-08] MEDS: METHADONE 160 MG, METHADONE 20 MG PO SCH (09:56)
[2018-09-08] MEDS: NAPROXEN 250 MG TABLET (FP) PO PRN (09:57)
[2018-09-08] MEDS: NICOTINE 21 MG/24 HOURS TOPICAL PATCH TD SCH (09:57)
[2018-09-08] MEDS: CLOTRIMAZOLE 1% CREAM 15 GM TUBE TP SCH ×2 (09:57→21:37)
[2018-09-08] MEDS: MAG HYDROX/AL HYDROX/SIMETH 30 ML UNIT-DOSE CUP PO PRN ×2 (10:46→21:36)
[2018-09-08] MEDS: LURASIDONE HCL 40 MG TABLET PO SCH (11:00)
[2018-09-08] MEDS ORDERED: PT OWN MED DRAWER 7, Y5N ONE (11:31)
[2018-09-08] MEDS: cloNIDine HCL 0.1 MG TABLET PO PRN ×2 (14:23→21:36)
[2018-09-08] MEDS: AMITRIPTYLINE HCL 25 MG TABLET (FP) PO PRN (21:33)
[2018-09-08] MEDS: QUEtiapine FUMARATE 300 MG TABLET PO SCH (21:33)
[2018-09-08] MEDS: THIAMINE HCL 100 MG TABLET (FP) PO SCH (21:33)
[2018-09-08] MEDS: LIDOCAINE PATCH REMOVAL MC SCH (21:36)
[2018-09-09] MEDS: NICOTINE POLACRILEX 4 MG GUM BUC PRN ×5 (03:29→21:15)
[2018-09-09] MEDS ORDERED: METHADONE HCL 10 MG TABLET ONE (08:05)
[2018-09-09] MEDS ORDERED: METHADONE HCL 40 MG DISPERSABLE TABLET ONE (08:06)
[2018-09-09] MEDS: cloNIDine HCL 0.1 MG TABLET PO PRN ×2 (08:40→21:13)
[2018-09-09] MEDS: RANITIDINE HCL 150 MG TABLET (FP) PO SCH ×2 (09:40→21:11)
[2018-09-09] MEDS: QUEtiapine FUMARATE 100 MG TABLET (FP) PO SCH (09:40)
[2018-09-09] MEDS: BUDESONIDE/FORMETEROL FUMARATE 160/4.5 mcg INHALER IH SCH ×2 (09:40→21:13)
[2018-09-09] MEDS: PRENATAL VITAMINS W/ FOLIC ACID TABLET (FP) PO SCH (09:40)
[2018-09-09] MEDS: LURASIDONE HCL 40 MG TABLET PO SCH (09:40)
[2018-09-09] MEDS: DIVALPROEX SODIUM 500 MG TABLET E.C. PO SCH ×2 (09:41→21:11)
[2018-09-09] MEDS: MINERAL OIL/PETROLAT/WATER TOPICAL CREAM 113 GM JAR TP SCH (09:42)
[2018-09-09] MEDS: TRIAMCINOLONE ACET 0.1% CREAM 15 GM TUBE TP SCH ×2 (09:42→21:11)
[2018-09-09] MEDS: LIDOCAINE 5% TOPICAL PATCH TP SCH (09:42)
[2018-09-09] MEDS: NICOTINE 21 MG/24 HOURS TOPICAL PATCH TD SCH (09:43)
[2018-09-09] MEDS: METHADONE 160 MG, METHADONE 20 MG PO SCH (09:43)
[2018-09-09] MEDS: CLOTRIMAZOLE 1% CREAM 15 GM TUBE TP SCH ×2 (09:43→21:12)
[2018-09-09] MEDS: hydrOXYzine PAMOATE 50 MG CAPSULE (FP) PO PRN ×2 (12:35→17:37)
[2018-09-09] MEDS ORDERED: PT OWN MED DRAWER 7, Y5N ONE ×2 (13:15→21:13)
[2018-09-09] MEDS: MAG HYDROX/AL HYDROX/SIMETH 30 ML UNIT-DOSE CUP PO PRN (14:24)
[2018-09-09] MEDS: QUEtiapine FUMARATE 300 MG TABLET PO SCH (21:11)
[2018-09-09] MEDS: THIAMINE HCL 100 MG TABLET (FP) PO SCH (21:12)
[2018-09-09] MEDS: LIDOCAINE PATCH REMOVAL MC SCH (21:12)
[2018-09-10] MEDS: NICOTINE POLACRILEX 4 MG GUM BUC PRN ×8 (00:02→23:16)
[2018-09-10] MEDS: hydrOXYzine PAMOATE 50 MG CAPSULE (FP) PO PRN ×4 (00:03→18:10)
[2018-09-10] MEDS: MAG HYDROX/AL HYDROX/SIMETH 30 ML UNIT-DOSE CUP PO PRN (00:03)
[2018-09-10] MEDS: cloNIDine HCL 0.1 MG TABLET PO PRN ×2 (06:20→21:03)
[2018-09-10] MEDS ORDERED: METHADONE HCL 10 MG TABLET ONE (08:02)
[2018-09-10] MEDS ORDERED: METHADONE HCL 40 MG DISPERSABLE TABLET ONE (08:03)
[2018-09-10] MEDS ORDERED: PT OWN MED DRAWER 7, Y5N ONE (08:06)
[2018-09-10] MEDS: METHADONE 160 MG, METHADONE 20 MG PO SCH (09:30)
[2018-09-10] MEDS: DIVALPROEX SODIUM 500 MG TABLET E.C. PO SCH ×2 (09:30→21:02)
[2018-09-10] MEDS: BUDESONIDE/FORMETEROL FUMARATE 160/4.5 mcg INHALER IH SCH ×2 (09:30→21:02)
[2018-09-10] MEDS: TRIAMCINOLONE ACET 0.1% CREAM 15 GM TUBE TP SCH ×2 (09:30→21:02)
[2018-09-10] MEDS: MINERAL OIL/PETROLAT/WATER TOPICAL CREAM 113 GM JAR TP SCH (09:32)
[2018-09-10] MEDS: LURASIDONE HCL 40 MG TABLET PO SCH (09:33)
[2018-09-10] MEDS: NICOTINE 21 MG/24 HOURS TOPICAL PATCH TD SCH (09:34)
[2018-09-10] MEDS: LIDOCAINE 5% TOPICAL PATCH TP SCH (09:34)
[2018-09-10] MEDS: CLOTRIMAZOLE 1% CREAM 15 GM TUBE TP SCH ×2 (09:34→21:03)
[2018-09-10] MEDS: QUEtiapine FUMARATE 100 MG TABLET (FP) PO SCH (09:35)
[2018-09-10] MEDS: PRENATAL VITAMINS W/ FOLIC ACID TABLET (FP) PO SCH (09:35)
[2018-09-10] MEDS: RANITIDINE HCL 150 MG TABLET (FP) PO SCH ×2 (09:35→21:02)
[2018-09-10] MEDS: THIAMINE HCL 100 MG TABLET (FP) PO SCH (21:03)
[2018-09-10] MEDS: LIDOCAINE PATCH REMOVAL MC SCH (21:03)
[2018-09-10] MEDS: QUEtiapine FUMARATE 300 MG TABLET PO SCH (21:03)
[2018-09-11] MEDS: hydrOXYzine PAMOATE 50 MG CAPSULE (FP) PO PRN ×3 (01:14→13:31)
[2018-09-11] MEDS: NICOTINE POLACRILEX 4 MG GUM BUC PRN ×4 (01:16→17:57)
[2018-09-11] MEDS: cloNIDine HCL 0.1 MG TABLET PO PRN ×2 (06:17→17:58)
[2018-09-11] MEDS: ALBUTEROL SO4 8 GM HFA INHALER IH PRN (06:19)
[2018-09-11] MEDS ORDERED: METHADONE HCL 10 MG TABLET ONE (08:47)
[2018-09-11] MEDS ORDERED: METHADONE HCL 40 MG DISPERSABLE TABLET ONE (08:47)
[2018-09-11] MEDS ORDERED: PT OWN MED DRAWER 7, Y5N ONE (08:48)
[2018-09-11] MEDS: TRIAMCINOLONE ACET 0.1% CREAM 15 GM TUBE TP SCH ×2 (09:43→21:43)
[2018-09-11] MEDS: LIDOCAINE 5% TOPICAL PATCH TP SCH (09:43)
[2018-09-11] MEDS: NICOTINE 21 MG/24 HOURS TOPICAL PATCH TD SCH (09:44)
[2018-09-11] MEDS: DIVALPROEX SODIUM 500 MG TABLET E.C. PO SCH ×2 (09:44→21:37)
[2018-09-11] MEDS: RANITIDINE HCL 150 MG TABLET (FP) PO SCH ×2 (09:44→21:38)
[2018-09-11] MEDS: PRENATAL VITAMINS W/ FOLIC ACID TABLET (FP) PO SCH (09:44)
[2018-09-11] MEDS: LURASIDONE HCL 40 MG TABLET PO SCH (09:44)
[2018-09-11] MEDS: QUEtiapine FUMARATE 100 MG TABLET (FP) PO SCH (09:44)
[2018-09-11] MEDS: METHADONE 160 MG, METHADONE 20 MG PO SCH (09:45)
[2018-09-11] MEDS: MINERAL OIL/PETROLAT/WATER TOPICAL CREAM 113 GM JAR TP SCH (10:11)
[2018-09-11] MEDS: CLOTRIMAZOLE 1% CREAM 15 GM TUBE TP SCH ×2 (10:11→21:38)
[2018-09-11] MEDS: BUDESONIDE/FORMETEROL FUMARATE 160/4.5 mcg INHALER IH SCH ×2 (10:11→21:44)
--- NOTE | 2018-09-11 13:43 | PN ---
S Progress Note Note: Vital Signs Temperature 97.8 F 09/11/18 06:30 Pulse Rate 84 09/11/18 06:30 Respiratory Rate 18 09/11/18 06:30 Blood Pressure 107/72 09/11/18 06:30 O2 Sat by Pulse Oximetry (%) Laboratory Last Values [place] 0 MEQ/L (0.6-1.2) L 09/06/18 08:40 c/o of no relief with sucrafate for GERD and redness on the right anticunital fossa after venapuncture about a weeks ago. patient Aox3 no distress no adventitious breath sounds BS non-tender non distended + erythema on right anticubital fossa, skin intact GERD plan: bacitracin TP change sucrafate to protonix 20 mg BID increase fluids continue to monitor
[2018-09-11] MEDS: PANTOPRAZOLE 20 MG TABLET (FP) PO SCH ×2 (16:13→21:38)
[2018-09-11] MEDS: BACITRACIN 0.9 GM PACKET TP SCH (16:13)
[2018-09-11] MEDS: hydrOXYzine PAMOATE 50 MG CAPSULE (FP) PO SCH ×2 (17:56→21:38)
[2018-09-11] MEDS: THIAMINE HCL 100 MG TABLET (FP) PO SCH (21:37)
[2018-09-11] MEDS: QUEtiapine FUMARATE 300 MG TABLET PO SCH (21:38)
[2018-09-11] MEDS: LIDOCAINE PATCH REMOVAL MC SCH (21:39)
[2018-09-11] MEDS: MAG HYDROX/AL HYDROX/SIMETH 30 ML UNIT-DOSE CUP PO PRN (21:43)
[2018-09-12] MEDS: hydrOXYzine PAMOATE 50 MG CAPSULE (FP) PO SCH ×3 (06:33→21:19)
[2018-09-12] MEDS: NICOTINE POLACRILEX 4 MG GUM BUC PRN ×4 (06:37→23:10)
[2018-09-12] MEDS ORDERED: PT OWN MED DRAWER 7, Y5N ONE ×2 (08:52→14:27)
[2018-09-12] MEDS: TRIAMCINOLONE ACET 0.1% CREAM 15 GM TUBE TP SCH ×2 (10:03→21:24)
[2018-09-12] MEDS: BACITRACIN 0.9 GM PACKET TP SCH (10:03)
[2018-09-12] MEDS: LIDOCAINE 5% TOPICAL PATCH TP SCH (10:03)
[2018-09-12] MEDS: NICOTINE 21 MG/24 HOURS TOPICAL PATCH TD SCH (10:03)
[2018-09-12] MEDS: DIVALPROEX SODIUM 500 MG TABLET E.C. PO SCH ×2 (10:03→21:19)
[2018-09-12] MEDS: PRENATAL VITAMINS W/ FOLIC ACID TABLET (FP) PO SCH (10:04)
[2018-09-12] MEDS: RANITIDINE HCL 150 MG TABLET (FP) PO SCH ×2 (10:04→21:19)
[2018-09-12] MEDS: LURASIDONE HCL 40 MG TABLET PO SCH (10:04)
[2018-09-12] MEDS: QUEtiapine FUMARATE 100 MG TABLET (FP) PO SCH (10:04)
[2018-09-12] MEDS: PANTOPRAZOLE 20 MG TABLET (FP) PO SCH ×2 (10:04→21:20)
[2018-09-12] MEDS: BUDESONIDE/FORMETEROL FUMARATE 160/4.5 mcg INHALER IH SCH ×2 (10:05→21:23)
[2018-09-12] MEDS: MINERAL OIL/PETROLAT/WATER TOPICAL CREAM 113 GM JAR TP SCH (10:05)
[2018-09-12] MEDS: CLOTRIMAZOLE 1% CREAM 15 GM TUBE TP SCH ×2 (10:05→21:19)
[2018-09-12] MEDS ORDERED: METHADONE HCL 10 MG TABLET ONE (10:07)
[2018-09-12] MEDS: cloNIDine HCL 0.1 MG TABLET PO PRN ×2 (10:08→21:19)
[2018-09-12] MEDS ORDERED: METHADONE HCL 40 MG DISPERSABLE TABLET ONE (10:08)
[2018-09-12] MEDS: METHADONE 160 MG, METHADONE 20 MG PO SCH (10:09)
[2018-09-12] MEDS: MAG HYDROX/AL HYDROX/SIMETH 30 ML UNIT-DOSE CUP PO PRN ×2 (14:26→21:23)
[2018-09-12] MEDS: THIAMINE HCL 100 MG TABLET (FP) PO SCH (21:19)
[2018-09-12] MEDS: QUEtiapine FUMARATE 300 MG TABLET PO SCH (21:19)
[2018-09-12] MEDS: LIDOCAINE PATCH REMOVAL MC SCH (21:19)
[2018-09-13] MEDS: NICOTINE POLACRILEX 4 MG GUM BUC PRN ×7 (01:28→21:28)
[2018-09-13] MEDS: hydrOXYzine PAMOATE 50 MG CAPSULE (FP) PO SCH ×3 (06:42→21:23)
[2018-09-13] MEDS ORDERED: METHADONE HCL 10 MG TABLET ONE (08:44)
[2018-09-13] MEDS ORDERED: METHADONE HCL 40 MG DISPERSABLE TABLET ONE (08:45)
[2018-09-13] MEDS ORDERED: PT OWN MED DRAWER 7, Y5N ONE (08:47)
[2018-09-13] MEDS: TRIAMCINOLONE ACET 0.1% CREAM 15 GM TUBE TP SCH ×2 (09:53→21:24)
[2018-09-13] MEDS: BACITRACIN 0.9 GM PACKET TP SCH (09:53)
[2018-09-13] MEDS: DIVALPROEX SODIUM 500 MG TABLET E.C. PO SCH ×2 (09:53→21:23)
[2018-09-13] MEDS: LURASIDONE HCL 40 MG TABLET PO SCH (09:54)
[2018-09-13] MEDS: MINERAL OIL/PETROLAT/WATER TOPICAL CREAM 113 GM JAR TP SCH (09:54)
[2018-09-13] MEDS: NICOTINE 21 MG/24 HOURS TOPICAL PATCH TD SCH (09:55)
[2018-09-13] MEDS: LIDOCAINE 5% TOPICAL PATCH TP SCH (09:55)
[2018-09-13] MEDS: CLOTRIMAZOLE 1% CREAM 15 GM TUBE TP SCH ×2 (09:55→21:25)
[2018-09-13] MEDS: RANITIDINE HCL 150 MG TABLET (FP) PO SCH ×2 (09:56→21:23)
[2018-09-13] MEDS: BUDESONIDE/FORMETEROL FUMARATE 160/4.5 mcg INHALER IH SCH ×2 (09:56→21:26)
[2018-09-13] MEDS: PANTOPRAZOLE 20 MG TABLET (FP) PO SCH ×2 (09:56→21:26)
[2018-09-13] MEDS: PRENATAL VITAMINS W/ FOLIC ACID TABLET (FP) PO SCH (09:56)
[2018-09-13] MEDS: QUEtiapine FUMARATE 100 MG TABLET (FP) PO SCH (09:56)
[2018-09-13] MEDS: METHADONE 160 MG, METHADONE 20 MG PO SCH (09:57)
--- NOTE | 2018-09-13 12:48 | PN ---
[facility] Progress Note Note: Vital Signs Temperature 97.2 F L 09/13/18 06:53 Pulse Rate 82 09/13/18 06:53 Respiratory Rate 17 09/13/18 06:53 Blood Pressure 123/83 09/13/18 06:53 O2 Sat by Pulse Oximetry (%) Laboratory Last Values [place] 0 MEQ/L (0.6-1.2) L 09/06/18 08:40 c/o of back pain, no changes in mobility flexeril PRN increase fluids lidociane patch continue to monitor
[2018-09-13] MEDS: CYCLOBENZAPRINE HCL 5 MG TABLET PO SCH ×2 (14:00→21:24)
[2018-09-13] MEDS: MAG HYDROX/AL HYDROX/SIMETH 30 ML UNIT-DOSE CUP PO PRN (14:01)
[2018-09-13] MEDS: THIAMINE HCL 100 MG TABLET (FP) PO SCH (21:23)
[2018-09-13] MEDS: QUEtiapine FUMARATE 300 MG TABLET PO SCH (21:24)
[2018-09-13] MEDS: LIDOCAINE PATCH REMOVAL MC SCH (21:24)
[2018-09-13] MEDS: cloNIDine HCL 0.1 MG TABLET PO PRN (21:29)
[2018-09-14] MEDS: NICOTINE POLACRILEX 4 MG GUM BUC PRN ×4 (02:10→13:31)
[2018-09-14] MEDS: CYCLOBENZAPRINE HCL 5 MG TABLET PO SCH ×3 (06:06→21:17)
[2018-09-14] MEDS: hydrOXYzine PAMOATE 50 MG CAPSULE (FP) PO SCH ×3 (06:06→21:17)
[2018-09-14] MEDS ORDERED: METHADONE HCL 10 MG TABLET ONE (08:23)
[2018-09-14] MEDS ORDERED: METHADONE HCL 40 MG DISPERSABLE TABLET ONE (08:23)
[2018-09-14] MEDS ORDERED: PT OWN MED DRAWER 7, Y5N ONE ×4 (08:24→21:17)
[2018-09-14] MEDS: PANTOPRAZOLE 20 MG TABLET (FP) PO SCH ×2 (09:58→21:20)
[2018-09-14] MEDS: PRENATAL VITAMINS W/ FOLIC ACID TABLET (FP) PO SCH (09:58)
[2018-09-14] MEDS: DIVALPROEX SODIUM 500 MG TABLET E.C. PO SCH ×2 (09:58→21:17)
[2018-09-14] MEDS: METHADONE 160 MG, METHADONE 20 MG PO SCH (09:59)
[2018-09-14] MEDS: MINERAL OIL/PETROLAT/WATER TOPICAL CREAM 113 GM JAR TP SCH (09:59)
[2018-09-14] MEDS: LURASIDONE HCL 40 MG TABLET PO SCH (09:59)
[2018-09-14] MEDS: LIDOCAINE 5% TOPICAL PATCH TP SCH (10:01)
[2018-09-14] MEDS: NICOTINE 21 MG/24 HOURS TOPICAL PATCH TD SCH (10:01)
[2018-09-14] MEDS: cloNIDine HCL 0.1 MG TABLET PO PRN ×2 (10:03→21:17)
[2018-09-14] MEDS: BUDESONIDE/FORMETEROL FUMARATE 160/4.5 mcg INHALER IH SCH ×2 (10:04→21:20)
[2018-09-14] MEDS: TRIAMCINOLONE ACET 0.1% CREAM 15 GM TUBE TP SCH ×2 (10:05→21:18)
[2018-09-14] MEDS: BACITRACIN 0.9 GM PACKET TP SCH (10:05)
[2018-09-14] MEDS: CLOTRIMAZOLE 1% CREAM 15 GM TUBE TP SCH ×2 (10:05→21:19)
[2018-09-14] MEDS: QUEtiapine FUMARATE 100 MG TABLET (FP) PO SCH (10:37)
[2018-09-14] MEDS: RANITIDINE HCL 150 MG TABLET (FP) PO SCH ×2 (10:38→21:17)
[2018-09-14] MEDS: THIAMINE HCL 100 MG TABLET (FP) PO SCH (21:17)
[2018-09-14] MEDS: QUEtiapine FUMARATE 300 MG TABLET PO SCH (21:17)
[2018-09-14] MEDS: LIDOCAINE PATCH REMOVAL MC SCH (21:19)
[2018-09-14] MEDS: MAG HYDROX/AL HYDROX/SIMETH 30 ML UNIT-DOSE CUP PO PRN (21:21)
[2018-09-15] MEDS: hydrOXYzine PAMOATE 50 MG CAPSULE (FP) PO SCH ×3 (06:14→21:01)
[2018-09-15] MEDS: CYCLOBENZAPRINE HCL 5 MG TABLET PO SCH ×3 (06:14→21:02)
[2018-09-15] MEDS: ALBUTEROL SO4 8 GM HFA INHALER IH PRN ×2 (06:15→11:24)
[2018-09-15] MEDS: NICOTINE POLACRILEX 4 MG GUM BUC PRN ×4 (06:16→19:11)
[2018-09-15] MEDS ORDERED: PT OWN MED DRAWER 7, Y5N ONE (08:41)
[2018-09-15] MEDS: LIDOCAINE 5% TOPICAL PATCH TP SCH (09:47)
[2018-09-15] MEDS ORDERED: METHADONE HCL 10 MG TABLET ONE (09:49)
[2018-09-15] MEDS ORDERED: METHADONE HCL 40 MG DISPERSABLE TABLET ONE (09:49)
[2018-09-15] MEDS: DIVALPROEX SODIUM 500 MG TABLET E.C. PO SCH ×2 (09:50→21:01)
[2018-09-15] MEDS: LURASIDONE HCL 40 MG TABLET PO SCH (09:50)
[2018-09-15] MEDS: PANTOPRAZOLE 20 MG TABLET (FP) PO SCH ×2 (09:50→21:01)
[2018-09-15] MEDS: QUEtiapine FUMARATE 100 MG TABLET (FP) PO SCH (09:50)
[2018-09-15] MEDS: RANITIDINE HCL 150 MG TABLET (FP) PO SCH ×2 (09:50→21:01)
[2018-09-15] MEDS: BUDESONIDE/FORMETEROL FUMARATE 160/4.5 mcg INHALER IH SCH ×2 (09:51→21:01)
[2018-09-15] MEDS: BACITRACIN 0.9 GM PACKET TP SCH (09:51)
[2018-09-15] MEDS: PRENATAL VITAMINS W/ FOLIC ACID TABLET (FP) PO SCH (09:51)
[2018-09-15] MEDS: NICOTINE 21 MG/24 HOURS TOPICAL PATCH TD SCH (09:51)
[2018-09-15] MEDS: METHADONE 160 MG, METHADONE 20 MG PO SCH (09:52)
[2018-09-15] MEDS: TRIAMCINOLONE ACET 0.1% CREAM 15 GM TUBE TP SCH ×2 (09:53→21:02)
[2018-09-15] MEDS: MINERAL OIL/PETROLAT/WATER TOPICAL CREAM 113 GM JAR TP SCH (09:53)
[2018-09-15] MEDS: CLOTRIMAZOLE 1% CREAM 15 GM TUBE TP SCH ×2 (09:54→21:02)
[2018-09-15] MEDS: AMITRIPTYLINE HCL 25 MG TABLET (FP) PO PRN (09:55)
--- NOTE | 2018-09-15 10:03 | PN ---
S Progress Note Note: Pt states she was told by someone earlier that she had blood in her urine and therefore could not change medicines to lithium- recent UA did not show hematuria- pt to f/u for medication change to lithium
[2018-09-15] MEDS: QUEtiapine FUMARATE 300 MG TABLET PO SCH (21:01)
[2018-09-15] MEDS: cloNIDine HCL 0.1 MG TABLET PO PRN (21:01)
[2018-09-15] MEDS: THIAMINE HCL 100 MG TABLET (FP) PO SCH (21:01)
[2018-09-15] MEDS: LIDOCAINE PATCH REMOVAL MC SCH (21:02)
[2018-09-16] MEDS: NICOTINE POLACRILEX 4 MG GUM BUC PRN ×5 (00:47→21:17)
[2018-09-16] MEDS: MAG HYDROX/AL HYDROX/SIMETH 30 ML UNIT-DOSE CUP PO PRN (02:24)
[2018-09-16] MEDS: CYCLOBENZAPRINE HCL 5 MG TABLET PO SCH ×3 (06:16→21:12)
[2018-09-16] MEDS: hydrOXYzine PAMOATE 50 MG CAPSULE (FP) PO SCH ×3 (06:16→21:12)
[2018-09-16] MEDS ORDERED: METHADONE HCL 10 MG TABLET ONE (09:21)
[2018-09-16] MEDS ORDERED: METHADONE HCL 40 MG DISPERSABLE TABLET ONE (09:21)
[2018-09-16] MEDS: METHADONE 160 MG, METHADONE 20 MG PO SCH (10:09)
[2018-09-16] MEDS: NICOTINE 21 MG/24 HOURS TOPICAL PATCH TD SCH (10:10)
[2018-09-16] MEDS: PRENATAL VITAMINS W/ FOLIC ACID TABLET (FP) PO SCH (10:11)
[2018-09-16] MEDS: DIVALPROEX SODIUM 500 MG TABLET E.C. PO SCH ×2 (10:11→21:12)
[2018-09-16] MEDS: LURASIDONE HCL 40 MG TABLET PO SCH (10:11)
[2018-09-16] MEDS: PANTOPRAZOLE 20 MG TABLET (FP) PO SCH ×2 (10:11→21:13)
[2018-09-16] MEDS: MINERAL OIL/PETROLAT/WATER TOPICAL CREAM 113 GM JAR TP SCH (10:11)
[2018-09-16] MEDS: CLOTRIMAZOLE 1% CREAM 15 GM TUBE TP SCH ×2 (10:11→21:13)
[2018-09-16] MEDS: RANITIDINE HCL 150 MG TABLET (FP) PO SCH ×2 (10:11→21:12)
[2018-09-16] MEDS: QUEtiapine FUMARATE 100 MG TABLET (FP) PO SCH (10:12)
[2018-09-16] MEDS: BUDESONIDE/FORMETEROL FUMARATE 160/4.5 mcg INHALER IH SCH ×2 (10:12→21:14)
[2018-09-16] MEDS: LIDOCAINE 5% TOPICAL PATCH TP SCH (10:12)
[2018-09-16] MEDS: TRIAMCINOLONE ACET 0.1% CREAM 15 GM TUBE TP SCH ×2 (10:13→21:12)
[2018-09-16] MEDS: BACITRACIN 0.9 GM PACKET TP SCH (10:13)
[2018-09-16] MEDS ORDERED: PT OWN MED DRAWER 7, Y5N ONE ×2 (10:51→22:51)
[2018-09-16] MEDS: cloNIDine HCL 0.1 MG TABLET PO PRN (14:07)
[2018-09-16] MEDS: THIAMINE HCL 100 MG TABLET (FP) PO SCH (21:11)
[2018-09-16] MEDS: QUEtiapine FUMARATE 300 MG TABLET PO SCH (21:12)
[2018-09-16] MEDS: LIDOCAINE PATCH REMOVAL MC SCH (21:13)
[2018-09-16] MEDS: AMITRIPTYLINE HCL 25 MG TABLET (FP) PO PRN (21:15)
[2018-09-17] MEDS: CYCLOBENZAPRINE HCL 5 MG TABLET PO SCH ×3 (06:35→21:26)
[2018-09-17] MEDS: hydrOXYzine PAMOATE 50 MG CAPSULE (FP) PO SCH ×3 (06:35→21:26)
[2018-09-17] MEDS: NICOTINE POLACRILEX 4 MG GUM BUC PRN ×3 (06:36→12:47)
[2018-09-17] MEDS ORDERED: METHADONE HCL 40 MG DISPERSABLE TABLET ONE (09:24)
[2018-09-17] MEDS ORDERED: METHADONE HCL 10 MG TABLET ONE (09:24)
[2018-09-17] MEDS: METHADONE 160 MG, METHADONE 20 MG PO SCH (09:39)
[2018-09-17] MEDS: LIDOCAINE 5% TOPICAL PATCH TP SCH (09:40)
[2018-09-17] MEDS: NICOTINE 21 MG/24 HOURS TOPICAL PATCH TD SCH (09:40)
[2018-09-17] MEDS: MINERAL OIL/PETROLAT/WATER TOPICAL CREAM 113 GM JAR TP SCH (09:41)
[2018-09-17] MEDS: LURASIDONE HCL 40 MG TABLET PO SCH (09:41)
[2018-09-17] MEDS: BUDESONIDE/FORMETEROL FUMARATE 160/4.5 mcg INHALER IH SCH ×2 (09:41→21:27)
[2018-09-17] MEDS: BACITRACIN 0.9 GM PACKET TP SCH (09:41)
[2018-09-17] MEDS: TRIAMCINOLONE ACET 0.1% CREAM 15 GM TUBE TP SCH ×2 (09:41→21:29)
[2018-09-17] MEDS: CLOTRIMAZOLE 1% CREAM 15 GM TUBE TP SCH ×2 (09:41→21:29)
[2018-09-17] MEDS: QUEtiapine FUMARATE 100 MG TABLET (FP) PO SCH (09:42)
[2018-09-17] MEDS: RANITIDINE HCL 150 MG TABLET (FP) PO SCH ×2 (09:42→21:25)
[2018-09-17] MEDS: PRENATAL VITAMINS W/ FOLIC ACID TABLET (FP) PO SCH (09:42)
[2018-09-17] MEDS: PANTOPRAZOLE 20 MG TABLET (FP) PO SCH ×2 (09:42→21:26)
[2018-09-17] MEDS: DIVALPROEX SODIUM 500 MG TABLET E.C. PO SCH ×2 (09:42→21:26)
[2018-09-17] MEDS: AMITRIPTYLINE HCL 25 MG TABLET (FP) PO PRN ×2 (09:44→21:25)
[2018-09-17] MEDS: THIAMINE HCL 100 MG TABLET (FP) PO SCH (21:25)
[2018-09-17] MEDS: cloNIDine HCL 0.1 MG TABLET PO PRN (21:25)
[2018-09-17] MEDS: QUEtiapine FUMARATE 300 MG TABLET PO SCH (21:26)
[2018-09-17] MEDS ORDERED: PT OWN MED DRAWER 7, Y5N ONE ×2 (21:27→22:16)
[2018-09-17] MEDS: LIDOCAINE PATCH REMOVAL MC SCH (21:29)
[2018-09-18] MEDS: hydrOXYzine PAMOATE 50 MG CAPSULE (FP) PO SCH ×3 (06:28→21:01)
[2018-09-18] MEDS: CYCLOBENZAPRINE HCL 5 MG TABLET PO SCH ×3 (06:28→21:01)
[2018-09-18] MEDS: NICOTINE POLACRILEX 4 MG GUM BUC PRN ×6 (06:29→23:44)
[2018-09-18] MEDS ORDERED: PT OWN MED DRAWER 7, Y5N ONE ×2 (08:31→13:55)
[2018-09-18] MEDS ORDERED: METHADONE HCL 40 MG DISPERSABLE TABLET ONE (08:59)
[2018-09-18] MEDS ORDERED: METHADONE HCL 10 MG TABLET ONE (08:59)
[2018-09-18] MEDS ORDERED: LURASIDONE HCL 40 MG TABLET PO SCH ×2 (09:52→10:22)
[2018-09-18] MEDS: METHADONE 160 MG, METHADONE 20 MG PO SCH (10:00)
[2018-09-18] MEDS: AMITRIPTYLINE HCL 25 MG TABLET (FP) PO PRN ×2 (10:02→23:44)
[2018-09-18] MEDS: TRIAMCINOLONE ACET 0.1% CREAM 15 GM TUBE TP SCH ×2 (10:02→21:02)
[2018-09-18] MEDS: BACITRACIN 0.9 GM PACKET TP SCH (10:02)
[2018-09-18] MEDS: MINERAL OIL/PETROLAT/WATER TOPICAL CREAM 113 GM JAR TP SCH (10:03)
[2018-09-18] MEDS: DIVALPROEX SODIUM 500 MG TABLET E.C. PO SCH ×2 (10:03→21:01)
[2018-09-18] MEDS: LIDOCAINE 5% TOPICAL PATCH TP SCH (10:04)
[2018-09-18] MEDS: CLOTRIMAZOLE 1% CREAM 15 GM TUBE TP SCH ×2 (10:04→21:02)
[2018-09-18] MEDS: NICOTINE 21 MG/24 HOURS TOPICAL PATCH TD SCH (10:04)
[2018-09-18] MEDS: PRENATAL VITAMINS W/ FOLIC ACID TABLET (FP) PO SCH (10:05)
[2018-09-18] MEDS: RANITIDINE HCL 150 MG TABLET (FP) PO SCH ×2 (10:05→21:01)
[2018-09-18] MEDS: BUDESONIDE/FORMETEROL FUMARATE 160/4.5 mcg INHALER IH SCH ×2 (10:05→21:01)
[2018-09-18] MEDS: PANTOPRAZOLE 20 MG TABLET (FP) PO SCH ×2 (10:05→21:02)
[2018-09-18] MEDS: QUEtiapine FUMARATE 100 MG TABLET (FP) PO SCH (10:05)
[2018-09-18] MEDS: LURASIDONE HCL 40 MG, LURASIDONE HCL 20 MG PO SCH (11:04)
[2018-09-18] MEDS: cloNIDine HCL 0.1 MG TABLET PO PRN (13:58)
[2018-09-18] MEDS: THIAMINE HCL 100 MG TABLET (FP) PO SCH (21:02)
[2018-09-18] MEDS: LIDOCAINE PATCH REMOVAL MC SCH (21:02)
[2018-09-18] MEDS: QUEtiapine FUMARATE 300 MG TABLET PO SCH (21:02)
[2018-09-19] MEDS: cloNIDine HCL 0.1 MG TABLET PO PRN (02:47)
[2018-09-19] MEDS: NICOTINE POLACRILEX 4 MG GUM BUC PRN ×4 (02:48→21:08)
[2018-09-19] MEDS ORDERED: METHADONE HCL 10 MG TABLET PO SCH (06:00)
[2018-09-19] MEDS ORDERED: METHADONE 160 MG, METHADONE 20 MG PO SCH (06:00)
[2018-09-19] MEDS ORDERED: METHADONE HCL 10 MG TABLET ONE (06:05)
[2018-09-19] MEDS ORDERED: METHADONE HCL 40 MG DISPERSABLE TABLET ONE (06:05)
[2018-09-19] MEDS: hydrOXYzine PAMOATE 50 MG CAPSULE (FP) PO SCH ×3 (06:22→21:07)
[2018-09-19] MEDS: CYCLOBENZAPRINE HCL 5 MG TABLET PO SCH ×3 (06:22→21:07)
[2018-09-19] MEDS ORDERED: PT OWN MED DRAWER 7, Y5N ONE (08:37)
[2018-09-19] MEDS: LIDOCAINE 5% TOPICAL PATCH TP SCH (09:58)
[2018-09-19] MEDS: NICOTINE 21 MG/24 HOURS TOPICAL PATCH TD SCH (09:58)
[2018-09-19] MEDS: BUDESONIDE/FORMETEROL FUMARATE 160/4.5 mcg INHALER IH SCH ×2 (09:58→21:06)
[2018-09-19] MEDS: BACITRACIN 0.9 GM PACKET TP SCH (09:58)
[2018-09-19] MEDS: DIVALPROEX SODIUM 500 MG TABLET E.C. PO SCH ×2 (09:59→21:06)
[2018-09-19] MEDS: PRENATAL VITAMINS W/ FOLIC ACID TABLET (FP) PO SCH (09:59)
[2018-09-19] MEDS: PANTOPRAZOLE 20 MG TABLET (FP) PO SCH ×2 (09:59→21:06)
[2018-09-19] MEDS: QUEtiapine FUMARATE 100 MG TABLET (FP) PO SCH (09:59)
[2018-09-19] MEDS: TRIAMCINOLONE ACET 0.1% CREAM 15 GM TUBE TP SCH ×2 (10:00→21:07)
[2018-09-19] MEDS: CLOTRIMAZOLE 1% CREAM 15 GM TUBE TP SCH ×2 (10:00→21:07)
[2018-09-19] MEDS: LURASIDONE HCL 40 MG, LURASIDONE HCL 20 MG PO SCH (10:01)
[2018-09-19] MEDS: MINERAL OIL/PETROLAT/WATER TOPICAL CREAM 113 GM JAR TP SCH (10:02)
[2018-09-19] MEDS: AMITRIPTYLINE HCL 25 MG TABLET (FP) PO PRN ×2 (10:02→18:34)
[2018-09-19] MEDS: RANITIDINE HCL 150 MG TABLET (FP) PO SCH ×2 (10:11→21:06)
[2018-09-19] MEDS: THIAMINE HCL 100 MG TABLET (FP) PO SCH (21:06)
[2018-09-19] MEDS: QUEtiapine FUMARATE 300 MG TABLET PO SCH (21:06)
[2018-09-19] MEDS: LIDOCAINE PATCH REMOVAL MC SCH (21:07)
[2018-09-20] MEDS: AMITRIPTYLINE HCL 25 MG TABLET (FP) PO PRN (06:25)
[2018-09-20] MEDS: hydrOXYzine PAMOATE 50 MG CAPSULE (FP) PO SCH (06:25)
[2018-09-20] MEDS: CYCLOBENZAPRINE HCL 5 MG TABLET PO SCH (06:25)
[2018-09-20] MEDS: cloNIDine HCL 0.1 MG TABLET PO PRN (06:26)
[2018-09-20] MEDS: NICOTINE POLACRILEX 4 MG GUM BUC PRN (06:27)
[2018-09-20 06:55] VITALS: BP 117/81; PULSE 86; TEMP 97.9
[2018-09-20] MEDS ORDERED: METHADONE HCL 40 MG DISPERSABLE TABLET ONE (08:26)
[2018-09-20] MEDS ORDERED: METHADONE HCL 10 MG TABLET ONE (08:26)
[2018-09-20] MEDS ORDERED: PT OWN MED DRAWER 7, Y5N ONE (08:29)
[2018-09-20] MEDS: TRIAMCINOLONE ACET 0.1% CREAM 15 GM TUBE TP SCH (09:00)
[2018-09-20] MEDS: BACITRACIN 0.9 GM PACKET TP SCH (09:01)
[2018-09-20] MEDS: BUDESONIDE/FORMETEROL FUMARATE 160/4.5 mcg INHALER IH SCH (09:02)
[2018-09-20] MEDS: PRENATAL VITAMINS W/ FOLIC ACID TABLET (FP) PO SCH (09:03)
[2018-09-20] MEDS: RANITIDINE HCL 150 MG TABLET (FP) PO SCH (09:03)
[2018-09-20] MEDS: QUEtiapine FUMARATE 100 MG TABLET (FP) PO SCH (09:03)
[2018-09-20] MEDS: DIVALPROEX SODIUM 500 MG TABLET E.C. PO SCH (09:03)
[2018-09-20] MEDS: NICOTINE 21 MG/24 HOURS TOPICAL PATCH TD SCH (09:04)
[2018-09-20] MEDS: CLOTRIMAZOLE 1% CREAM 15 GM TUBE TP SCH (09:04)
[2018-09-20] MEDS: LIDOCAINE 5% TOPICAL PATCH TP SCH (09:05)
[2018-09-20] MEDS: MINERAL OIL/PETROLAT/WATER TOPICAL CREAM 113 GM JAR TP SCH (09:05)
[2018-09-20] MEDS: LURASIDONE HCL 40 MG, LURASIDONE HCL 20 MG PO SCH (09:05)
[2018-09-20] MEDS: PANTOPRAZOLE 20 MG TABLET (FP) PO SCH (09:27)
--- NOTE | 2018-09-20 09:50 | PN ---
Psychiatric Progress Note Vital Signs: Vital Signs Period Temp Pulse Resp BP Sys/Narvaez Pulse Ox Last 24 Hr 97.9 F 86-93 - 117-122/77-81 Date of Session: 09/20/18 Chief Complaint:: Discharge visit HPI: Patient addresed Opioid,PCP,Anxiolytc,Cannabis dependence conmorbid with Bipolar disorder. ROS: Significant for BA,GERD,Obesity. Current Medications: Active Medications Generic Name Dose Route Start Last Admin Trade Name Freq PRN Reason Stop Dose Admin Acetaminophen 650 mg 09/05/18 10:17 Tylenol - PO Q4H PRN FEVER Al Hydroxide/Mg Hydroxide 30 ml 09/05/18 10:17 09/16/18 02:24 Mylanta Oral Suspension - PO 30 ml Q6H PRN Administration DYSPEPSIA Albuterol Sulfate 2 puff 09/05/18 10:18 09/15/18 11:24 Ventolin Hfa Inhaler - IH 2 puff Q4H PRN Administration SHORT OF BREATH/WHEEZING Amitriptyline HCl 25 mg 09/08/18 14:43 09/20/18 06:25 Elavil - PO 25 mg TID PRN Administration ANXIETY Bacitracin 0.9 gm 09/11/18 14:15 09/20/18 09:01 Bacitracin - TP 0.9 gm DAILY WENDY Administration Budesonide/Formoterol Fumarate 2 puff 09/05/18 22:00 09/20/18 09:02 Symbicort 160/4.5mcg - IH 2 puff BID WENDY Administration Clonidine 0.1 mg 09/08/18 12:51 09/20/18 06:26 Catapres - PO 0.1 mg BID PRN Administration WITHDRAWAL(CONT SUBST) Clotrimazole 1 applic 09/05/18 22:00 09/20/18 09:04 Lotrimin 1% Cream - TP 1 applic BID WENDY Administration Colloidal Oatmeal 1 applic 09/05/18 12:28 09/14/18 10:38 Aveeno Soap - TP 1 bar DAILY PRN Administration HYGEINE Cyclobenzaprine HCl 5 mg 09/13/18 14:00 09/20/18 06:25 Cyclobenzaprine Hcl PO 5 mg TID WENDY Administration Divalproex Sodium 500 mg 09/05/18 22:00 09/20/18 09:03 Depakote - PO 500 mg BID WENDY Administration Eucalyptus/Menthol/Phenol/Sorbitol 1 each 09/05/18 10:17 Cepastat Lozenge - MM Q4H PRN SORE THROAT Guaifenesin 10 ml 09/05/18 10:17 Robitussin Dm - PO Q6H PRN COUGH Hydroxyzine Pamoate 100 mg 09/11/18 17:15 09/20/18 06:25 Vistaril - PO 100 mg TID WENDY Administration Lidocaine 1 patch 09/06/18 10:00 09/20/18 09:05 Lidoderm Patch - TP 1 patch DAILY WENDY Administration Loperamide HCl 4 mg 09/05/18 10:17 Imodium - PO Q6H PRN DIARRHEA Lurasidone HCl 40 mg/ 60 mg 09/18/18 10:30 09/20/18 09:05 Lurasidone HCl 20 mg PO 60 mg DAILY WENDY Administration Magnesium Citrate 300 ml 09/05/18 10:17 09/10/18 12:00 Citroma - PO 300 ml Q48H PRN Administration CONSTIPATION Magnesium Hydroxide 30 ml 09/05/18 10:17 09/09/18 12:35 Milk Of Magnesia - PO 30 ml DAILY PRN Administration CONSTIPATION Melatonin 5 mg 09/05/18 22:00 Melatonin PO HS PRN INSOMNIA Methadone HCl 160 mg/ 180 mg 09/20/18 10:00 09/20/18 09:01 Methadone HCl 20 mg PO 09/25/18 05:59 180 mg DAILY@1000 WENDY Administration Miscellaneous 1 each 09/05/18 22:00 09/19/18 21:07 Lidoderm Patch Removal MC 1 each DAILY@2200 WENDY Administration Multi-Ingredient Lotion 1 applic 09/06/18 10:00 09/20/18 09:05 Eucerin (Small Jar) - TP 1 applic DAILY WENDY Administration Naproxen 250 mg 09/05/18 11:51 09/08/18 09:57 Naprosyn - PO 250 mg BID PRN Administration PAIN LEVEL 4 - 6 Nicotine 21 mg 09/08/18 10:00 09/20/18 09:04 Nicoderm Patch - TD 21 mg DAILY WENDY Administration Nicotine Polacrilex 4 mg 09/07/18 15:08 09/20/18 06:27 Nicorette Gum - BUC 4 mg Q2H PRN Administration NICOTINE REPLACEMENT RX Pantoprazole Sodium 20 mg 09/11/18 14:30 09/20/18 09:27 Protonix - PO 20 mg BID WENDY Administration Multivit/Folic Acid/Iron 1 tab 09/06/18 10:00 09/20/18 09:03 Vitamins (Sjr) - PO 1 tab DAILY WENDY Administration Pseudoephedrine/Triprolidine 1 combo 09/05/18 10:17 Actifed - PO TID PRN NASAL CONGESTION Quetiapine Fumarate 100 mg 09/06/18 10:00 09/20/18 09:03 Seroquel - PO 100 mg DAILY WENDY Administration Quetiapine Fumarate 300 mg 09/05/18 22:00 09/19/18 21:06 Seroquel - PO 300 mg HS WENDY Administration Ranitidine HCl 150 mg 09/05/18 22:00 09/20/18 09:03 Zantac - PO 150 mg BID WENDY Administration Thiamine HCl 100 mg 09/05/18 22:00 09/19/18 21:06 Vitamin B1 - PO 100 mg HS WENDY Administration Triamcinolone Acetonide 1 applic 09/06/18 10:00 09/20/18 09:00 Aristocort 0.1% Cream - TP 1 applic BID WENDY Administration Current Side Effect: No Lab tests ordered: No Lab tests reviewed: Yes Provider note:: Patient completed this program today.She has met her treatment goals and will continue to address her issues on outaptient basis.Patient reports finding current medications help to cocope with mood instability, depression,anxiety,insomnia.Scripts for 30 days supply provided. Patient identifies areas of difficulties. Supportive therapy peovided focusing on relapse prevention.Coping skills,support utilization has been discussed with the patient as well as other resourses to maintain recovery. Patient is stable for discharge today. Mental Status Exam - Mental Status Exam Alert and Oriented to: Time, Place, Person Cognitive Function: Grossly Intact Patient Appearance: Unkempt Mood: Euthymic Affect: Appropriate, Mood Congruent Patient Behavior: Cooperative Speech Pattern: Clear Voice Loudness: Normal Thought Process: Goal Oriented Hallucinations: Denies Suicidal Ideation: Denies Homicidal Ideation: Denies Insight/Judgement: Fair Sleep: Fair Appetite: Good Muscle strength/Tone: Normal Gait/Station: Normal Psychiatric Treatment Plan - Problem List (3) Nicotine dependence Qualifiers: Nicotine product type: cigarettes Substance use status: in withdrawal Qualified Code(s): F17.213 - Nicotine dependence, cigarettes, with withdrawal
[2018-09-20] MEDS ORDERED: METHADONE 160 MG, METHADONE 20 MG PO SCH (10:00)
== END 2018-09-20 09:46 | disposition home or self-care (01) | DRG 772 ==
LOC: YASAS 11:30 → Y3E 11:31
PROVIDERS: ADMIT Psychiatry & Neurology Psychiatry; ATTEND Psychiatry & Neurology Psychiatry
PROC: HZ42ZZZ Group Counseling for Substance Abuse Treatment, Cognitive-Behavioral (ICD-10-PCS; principal; 2018-09-05)
DX: F11.20 Opioid dependence, uncomplicated (principal); F13.20 Sedative, hypnotic or anxiolytic dependence, uncomplicated; F16.20 Hallucinogen dependence, uncomplicated; F14.20 Cocaine dependence, uncomplicated; F12.20 Cannabis dependence, uncomplicated; F17.213 Nicotine dependence, cigarettes, with withdrawal; F31.89 Other bipolar disorder; K21.9 Gastro-esophageal reflux disease without esophagitis
CPT/HCPCS: 36415; 80178; 90688; 90732; G0008; G0009; J0735

== ENCOUNTER 2019-01-18 10:41 | Inpatient (IN) | payer OTHER ==
[2019-01-18 16:04] VITALS: BMI 33.9
--- NOTE | 2019-01-18 17:02 | HP ---
CIWA Score Nausea/Vomitin Muscle Tremors: 2 Anxiety: 2 Agitation: 0-Normal Activity Paroxysmal Sweats: 2 Orientation: 2-Disoriented Date<2 days Tacttile Disturbances: 2-Mild Itch/Numbness/Burn Auditory Disturbances: 0-None Visual Disturbances: 0-None Headache: 0-None Present CIWA-Ar Total Score: 12 - Admission Criteria OASAS Guidelines: Admission for Medically Managed Detox: Requires at least one of the followin. CIWA greater than 12 2. Seizures within the past 24 hours 3. Delirium tremens within the past 24 hours 4. Hallucinations within the past 24 hours 5. Acute intervention needed for co occurring medical disorder 6. Acute intervention needed for co occurring psychiatric disorder 7. Severe withdrawal that cannot be handled at a lower level of care (continued vomiting, continued diarrhea, abnormal vital signs) requiring intravenous medication and/or fluids 8. Patient presents the following: CIWA greater than 12 Admission Criteria Met: Admission criteria met Admission ROS [facility] Chief Complaint: " I haven't had too much rest, benzo use" Allergies/Adverse Reactions: Allergies Allergy/AdvReac Type Severity Reaction Status Date / Time No Known Allergies Allergy Verified 01/18/19 16:49 History of Present Illness: 38 yo female wit hx of xanax, fentanyl / heroin and crack / cocaine dependence is here seeking xanax detox. Attends [facility] on maintenance 1000 mg qd, last medicated today. PMHX: asthma, GERD. Psych: Bipolar, depression, anxiety. Denies suicidal / homicidal ideation. Denies hx of seizures or blackouts Exam Limitations: No Limitations - Ebola screening Have you traveled outside of the country in the last 21 days: No Have you had contact with anyone from an Ebola affected area: No Have you been sick,other than usual withdrawal symptoms: No Do you have a fever: No - Review of Systems Constitutional: Changes in sleep, Weakness, Other (weight gain) EENT: reports: No Symptoms Reported Respiratory: reports: No Symptoms reported Cardiac: reports: No Symptoms Reported GI: reports: Constipated (lsdt BM four days ago), Nausea, Poor Fluid Intake, Indigestion : reports: Burning, Urgency Musculoskeletal: reports: No Symptoms Reported Integumentary: reports: Pruritus Neuro: reports: No Symptoms reported Endocrine: reports: Increased Thirst Hematology: reports: No Symptoms Reported Psychiatric: reports: Orientated x3, Anxious Other Systems: Reviewed and Negative Patient History - Patient Medical History Hx Anemia: No Hx Asthma: Yes Hx Chronic Obstructive Pulmonary Disease (COPD): No Hx Cancer: No Hx Cardiac Disorders: No Hx Congestive Heart Failure: No Hx Hypertension: No Hx Hypercholesterolemia: No Hx Pacemaker: No HX Cerebrovascular Accident: No Hx Seizures: No Hx Dementia: No Hx Diabetes: No Hx Gastrointestinal Disorders: Yes (ACID REFLUX) Hx Liver Disease: No Hx Genitourinary Disorders: No Hx Sexually Transmitted Disorders: No Hx Renal Disease (ESRD): No Hx Thyroid Disease: No Hx Human Immunodeficiency Virus (HIV): No (LAST 08/23 NEGATIVE) Hx Hepatitis C: No Hx Depression: Yes Hx Suicide Attempt: Yes (TRIED TO CUT HERSELF IN 2009) Hx Bipolar Disorder: No Hx Schizophrenia: No - Patient Surgical History Past Surgical History: Yes Hx Neurologic Surgery: No Hx Cataract Extraction: No Hx Cardiac Surgery: No Hx Lung Surgery: No Hx Breast Surgery: No Hx Breast Biopsy: No Hx Abdominal Surgery: No Hx Appendectomy: No Hx Cholecystectomy: No Hx Genitourinary Surgery: No Hx Section: Yes (2009) Hx Orthopedic Surgery: No Hx Hysterectomy: No Other Surgical History: appendectomy at age 29 Anesthesia Reaction: No - PPD History Previous Implant?: Yes Documented Results: Negative w/proof Implanted On Prior [facility] Admission?: Yes Date: 05/15/18 Results: 0 MM PPD to be Administered?: No - Reproductive History Patient is a Female of Child Bearing Age (11 -55 yrs old): Yes Last Menstrual Period: 11/24/18 Patient : No - Smoking Cessation Smoking history: Current every day smoker Have you smoked in the past 12 months: Yes Aproximately how many cigarettes per day: 10 Cigars Per Day: 0 Hx Chewing Tobacco Use: No Initiated information on smoking cessation: Yes 'Breaking Loose' booklet given: 01/18/19 - Substance & Tx. History Hx Alcohol Use: No Hx Substance Use: Yes Substance Use Type: Cocaine, Heroin, Marijuana Hx Substance Use Treatment: Yes (Detox [facility] August 2018) - Substances Abused Alprazolam (Xanax) Route: Oral Frequency: Daily Amount used: 4-6MG Age of first use: 31 Date of Last Use: 01/18/19 Crack Route: Smoking Frequency: Daily Amount used: 2-3 BAGS Age of first use: 19 Date of Last Use: 01/16/19 Heroin Route: Inhalation Frequency: Daily Amount used: 2 BAGS Age of first use: 34 Date of Last Use: 01/17/19 Marijuana/Hashish Route: Smoking Frequency: 1-2 times per week Amount used: 1 JOINT Age of first use: 13 Date of Last Use: 01/11/19 Family Disease History - Family Disease History Family Disease History: Diabetes: Grandparent (), Heart Disease: Grandparent, Mother (asthma,[place],HTN/), Respiratory: Mother, Daughter ( three daughters (ages 7, 7 and 19(), Other: Father (/HIV), Mother, Brother (three - healthy), Sister (four - healthy), Daughter Admission Physical Exam S - Vital Signs Vital Signs: Vital Signs - 24 hr 01/18/19 15:59 Temperature 97.2 F L Pulse Rate 98 H Respiratory 20 Rate Blood Pressure 124/98 - Physical General Appearance: Yes: Disheveled, Obese, Sweating, Anxious HEENTM: Yes: EOMI, Hearing grossly Normal, Normal ENT Inspection, Normocephalic , Normal Voice, [place], Pharynx Normal, Tm's normal Respiratory: Yes: Within Normal Limits Neck: Yes: Within Normal Limits Breast: Yes: Breast Exam Deferred Cardiology: Yes: Regular Rhythm, Regular Rate Abdominal: Yes: Normal Bowel Sounds, Flat, Soft, Protuberent Genitourinary: Yes: Uregency, Dysuria Back: Yes: Normal Inspection Musculoskeletal: Yes: full range of Motion, Gait Steady, Pelvis Stable, Back pain Extremities: Yes: Within Normal Limits Neurological: Yes: software support engineer II-XII NML intact, Fully Oriented, Alert, Motor Strength 5/5, Depressed Affect Integumentary: Yes: Normal Color, Warm, Diaphoresis Lymphatic: Yes: Within Normal Limits - Diagnostic (1) Sedative, hypnotic or anxiolytic dependence with withdrawal, uncomplicated Current Visit: Yes Status: Acute (2) Cannabis dependence Current Visit: Yes Status: Chronic (3) Cocaine dependence Current Visit: Yes Status: Chronic Qualifiers: Substance use status: uncomplicated Qualified Code(s): F14.20 - Cocaine dependence, uncomplicated (4) Constipation Current Visit: Yes Status: Chronic (5) GERD (gastroesophageal reflux disease) Current Visit: Yes Status: Chronic Qualifiers: Esophagitis presence: without esophagitis Qualified Code(s): K21.9 - Gastro -esophageal reflux disease without esophagitis (6) Obesity Current Visit: Yes Status: Chronic Qualifiers: Obesity classification: adult class 1 (BMI 30 - 34.9) Serious obesity comorbidity presence: unspecified whether serious comorbidity present Body mass index: BMI 33.0-33.9 (7) Opioid dependence on agonist therapy Current Visit: Yes Status: Chronic Cleared for Admission [facility] - Detox or Rehab [facility] Level of Care: Medically Managed Detox Regimen/Protocol: Valium [facility] Breath Alcohol Content Breath Alcohol Content: 0 Urine Pregancy Test - Result Urine Test Results: Negative - NO Line Present Urine Drug Screen - Results Drug Screen Negative: No Urine Drug Screen Results: THC-Marijuana, DARIO-Cocaine, OPI-Opiates, BZO- Benzodiazepines, MTD-Methadone, FEN-Fentanyl Inpatient Rehab Admission - Rehab Decision to Admit Inpatient rehab admission?: No
[2019-01-18] MEDS ORDERED: IBUPROFEN 400 MG TABLET (FP) PO PRN (17:10)
[2019-01-18] MEDS ORDERED: BISMUTH SUBSALICYLATE 524 MG/30 ML UD PO PRN (17:10)
[2019-01-18] MEDS ORDERED: MENTHOL/PHENOL 1 EACH UD MM PRN (17:10)
[2019-01-18] MEDS ORDERED: MAG HYDROX/AL HYDROX/SIMETH 30 ML UNIT-DOSE CUP PO PRN (17:10)
[2019-01-18] MEDS ORDERED: MAGNESIUM CITRATE 300 ML BOTTLE PO PRN (17:10)
[2019-01-18] MEDS ORDERED: ACETAMINOPHEN 325 MG TABLET (FP) PO PRN ×2 (17:10)
[2019-01-18] MEDS ORDERED: MELATONIN 5 MG TABLETS PO PRN (17:10)
[2019-01-18] MEDS ORDERED: MAGNESIUM HYDROX 2400MG/30ML ORAL SUSPENSION 30 ML CUP PO PRN (17:10)
[2019-01-18] MEDS ORDERED: METHOCARBAMOL 500 MG TABLET PO PRN (17:10)
[2019-01-18] MEDS ORDERED: LACTULOSE 20 GM/30 ML UDC (FOR ORAL USE ONLY) PO PRN (17:27)
[2019-01-18] MEDS: THIAMINE HCL 100 MG TABLET (FP) PO SCH (22:21)
[2019-01-18] MEDS: diazePAM 5 MG TABLET PO SCH (22:21)
[2019-01-18] MEDS: RANITIDINE HCL 150 MG TABLET (FP) PO SCH (22:21)
[2019-01-18] MEDS: NICOTINE POLACRILEX 4 MG GUM BUC PRN (22:23)
[2019-01-19] MEDS: diazePAM 5 MG TABLET PO SCH ×3 (05:54→22:21)
[2019-01-19] MEDS ORDERED: METHADONE HCL 40 MG DISPERSABLE TABLET PO SCH (07:15)
[2019-01-19] MEDS ORDERED: METHADONE HCL 10 MG TABLET ONE (07:27)
[2019-01-19] MEDS ORDERED: METHADONE HCL 40 MG DISPERSABLE TABLET ONE (07:27)
[2019-01-19] MEDS: METHADONE 80 MG, METHADONE 20 MG PO SCH (07:29)
[2019-01-19] MEDS ORDERED: COLLOIDAL OATMEAL 1 BAR EACH TP PRN (09:34)
[2019-01-19 09:42] LABS: HEMATOCRIT 43.1 % (32.4-45.2); HEMOGLOBIN 14.9 GM/dL (10.7-15.3); MCH 30.7 pg (25.7-33.7); MCHC 34.5 g/dl (32.0-36.0); MEAN CELL VOLUME 88.8 fl (80-96); MEAN PLT VOLUME 8.7 fl (7.5-11.1); PLATELET COUNT 223 K/MM3 (134-434); RBC 4.86 M/mm3 (3.60-5.2); RDW 15.1 % (11.6-15.6); WHITE BLOOD COUNT 8.2 K/mm3 (4.0-10.0)
[2019-01-19 10:03] LABS: ALBUMIN 3.5 g/dl (3.4-5.0); ALK PHOS 84 U/L (45-117); ANION GAP 8 MMOL/L (8-16); BILIRUBIN,TOTAL 0.5 mg/dL (0.2-1); BLOOD UREA NITROGEN 11 mg/dL (7-18); CALCIUM 8.4 mg/dL (8.5-10.1); CHLORIDE 105 mmol/L (98-107); CO2 27 mmol/L (21-32); CREATININE 0.8 mg/dL (0.55-1.3); GLUCOSE,RANDOM 117 mg/dL (74-106); POTASSIUM 3.4 mmol/L (3.5-5.1); SGOT/AST 36 U/L (15-37); SGPT/ALT 45 U/L (13-61); SODIUM 140 mmol/L (136-145); TOT PROT 6.8 g/dl (6.4-8.2)
[2019-01-19] MEDS: PRENATAL VITAMINS W/ FOLIC ACID TABLET (FP) PO SCH (10:12)
[2019-01-19] MEDS: MINERAL OIL/PETROLAT/WATER TOPICAL CREAM 113 GM JAR TP SCH (10:12)
[2019-01-19] MEDS: RANITIDINE HCL 150 MG TABLET (FP) PO SCH ×2 (10:12→22:20)
[2019-01-19] MEDS: NICOTINE 21 MG/24 HOURS TOPICAL PATCH TD SCH (10:13)
[2019-01-19] MEDS: ALBUTEROL SO4 8 GM HFA INHALER IH PRN (10:16)
--- NOTE | 2019-01-19 10:16 | CONSULT ---
[facility] Psychiatric Consult - Data Date of interview: 01/19/19 Admission source: [facility] Identifying data: Patient is a 38 year old single female, mother of three, unemployed, homeless, and is supported by public assistance. This is one of multiple admissions for patient. Patient admitted to for cocaine, opiate, and benzodiazepine dependence. Substance Abuse History: Substance & Tx. History. Hx Alcohol Use: No. Hx Substance Use: Yes. Substance Use Type: Cocaine, Heroin, Marijuana. Hx Substance Use Treatment: Yes ([facility] 2018). - Substances Abused. * * Alprazolam (Xanax). Route: Oral. Frequency: Daily. Amount used: 4-6MG. Age of first use: 31. Date of Last Use: 01/18/19. Crack. Route: Smoking. Frequency: Daily. Amount used: 2-3 BAGS. Age of first use: 19. Date of Last Use: 01/16/19. Heroin. Route: Inhalation. Frequency: Daily. Amount used: 2 BAGS. Age of first use: 34. Date of Last Use: 01/17/19. Marijuana/ Hashish. Route: Smoking. Frequency: 1-2 times per week. Amount used: 1 JOINT. Age of first use: 13. Date of Last Use: 01/11/19 Medical History: Asthma, acid reflex, appendectomy Psychiatric History: Patient's first psychiatric contact was in [address] [facility] outpatient clinic after reporting symtoms of depression. Patient reports one psychiatric hospitalization in 2018 after she cut herself secondary to her mother's passing. Her first suicide attempt was in 2009 via cutting. Ms. Rooney is receiving outpatient psychiatric care at [facility]. Self diagnosis of Bipolar disorder and anxiety. Patient reports taking Seroquel 100mg daily + 400mg HS + Doxepin 100mg HS + Latuda 30mg HS +Klonopin 2mg TID + Buspar 30mg TID + Gabapentin 400mg TID [place] (unknown dose). Patient is also enrolled in the methadone clinic at [facility] and is currently on methadone maintenance of 100mg daily. Pharmacy will be contacted for confirmation of medications. At present, Ms. Rooney presents as anxious and is reporting difficulty sleeping. Physical/Sexual Abuse/Trauma History: denies. Mental Status Exam - Mental Status Exam Alert and Oriented to: Time, Place, Person Cognitive Function: Good Patient Appearance: Unkempt Mood: Anxious Affect: Mood Congruent Patient Behavior: Appropriate Speech Pattern: Appropriate Voice Loudness: Moderately Soft/Quiet Thought Process: Intact, Goal Oriented Thought Disorder: Not Present Hallucinations: Denies Suicidal Ideation: Denies Homicidal Ideation: Denies Insight/Judgement: Poor Sleep: Poorly Appetite: Fair Muscle strength/Tone: Normal Gait/Station: Normal Psychiatric Findings - Problem List (Wise 1, 2,3) (1) Sedative, hypnotic or anxiolytic dependence with withdrawal, uncomplicated Current Visit: Yes Status: Acute (2) Cannabis dependence Current Visit: Yes Status: Chronic (3) Cocaine dependence Current Visit: Yes Status: Chronic Qualifiers: Substance use status: uncomplicated Qualified Code(s): F14.20 - Cocaine dependence, uncomplicated (4) Opioid dependence on agonist therapy Current Visit: Yes Status: Chronic (5) Mood disorder Current Visit: Yes Status: Chronic (6) Substance-induced anxiety disorder Current Visit: Yes Status: Acute (7) Substance-induced sleep disorder Current Visit: Yes Status: Acute - Initial Treatment Plan Initial Treatment Plan: Psychoeducation provided. Detoxification in progress. [facility] pharmacy called at and life insurance underwriter able to speak to pharmacist. As per pharmacist patient most recently picked a up 30 day prescription on 12/06/18 for Seroquel 100mg daily + 400mg HS + Buspar 15mg TID + doxepin 100mg HS. A 30 day prescripiton of gabapentin 300mg TID was picked up . Patient is not currently on latuda. As per pharmacy a prescription of latuda 40mg was electronically sent to the pharmacy on 09/19/18 but was not picked up because it needed prior authorization. Depakote 500mg BID was last picked up from pharmacy on 09/04/18. And there are no records of lithium. Will order Seroquel 50mg daily + Seroquel 200mg HS + buspar 15mg TID. Will hold doxepin 100mg due to risk of oversedation. Gabapentin 300mg TID will not be ordered at this time.
[2019-01-19] MEDS: diazePAM 5 MG TABLET PO PRN ×2 (10:18→17:39)
[2019-01-19] MEDS: NICOTINE POLACRILEX 4 MG GUM BUC PRN ×5 (10:20→20:27)
[2019-01-19] MEDS: CYCLOBENZAPRINE HCL 10 MG TABLET (FP) PO PRN (12:29)
[2019-01-19] MEDS: BACITRACIN 0.9 GM PACKET TP SCH ×2 (12:29→22:20)
[2019-01-19] MEDS: TRIAMCINOLONE ACET 0.025% OINTMENT 15 GM TUBE TP SCH ×2 (12:30→22:21)
[2019-01-19 14:51] LABS: URINE APPEARANCE SLCLOUDY; URINE BILIRUBIN NEGATIVE (<2.0 mg/dL); URINE COLOR DKYELLOW; URINE GLUCOSE (UA) NEGATIVE (NEGATIVE); URINE KETONE NEGATIVE (NEGATIVE); URINE LEUK ESTERASE 3+ (NEGATIVE); URINE NITRITE NEGATIVE (NEGATIVE); URINE PROTEIN 1+ (NEGATIVE); URINE UROBILINOGEN 4.0 E.U/dl mg/dL (0.2-1.0)
[2019-01-19 15:01] LABS: EPI CELLS RARE /HPF (FEW); URINE BACTERIA RARE /hpf (NONE SEEN); URINE MUCUS RARE
--- NOTE | 2019-01-19 15:30 | PN ---
S CIWA - CIWA Score Nausea/Vomitin-No Nausea/No Vomiting Muscle Tremors: 3 Anxiety: 4-Mod. Anxious/Guarded Agitation: 2 Paroxysmal Sweats: 3 Orientation: 0-Oriented Tacttile Disturbances: 2-Mild Itch/Numbness/Burn Auditory Disturbances: 0-None Visual Disturbances: 2-Mild Sensitivity Headache: 3-Moderate CIWA-Ar Total Score: 19 BHS Progress Note (SOAP) Subjective: Stomach Cramping, Constipation, Body Aches, H/A, Tremors, Interrupted Sleep, Hot Flashes, Sweating. Patient reports sensation of discomfort and hesitancy when urinating for last several days. Objective: PATIENT A & O X 2 (UNCERTAIN ABOUT CURRENT DAY / DATE). PATIENT OBSERVED AMBULATING ON UNIT. IN NO ACUTE DISTRESS. 01/19/19 15:27 Vital Signs Temperature 97.7 F 01/19/19 13:50 Pulse Rate 91 H 01/19/19 13:50 Respiratory Rate 16 01/19/19 13:50 Blood Pressure 116/80 01/19/19 13:50 O2 Sat by Pulse Oximetry (%) Laboratory Tests 01/18/19 01/19/19 01/19/19 13:00 07:40 07:40 WBC 8.2 RBC 4.86 Hgb 14.9 Hct 43.1 D MCV 88.8 MCH 30.7 MCHC 34.5 RDW 15.1 D Plt Count 223 MPV 8.7 D Sodium Potassium Chloride Carbon Dioxide Anion Gap BUN Creatinine Creat Clearance w eGFR Random Glucose Calcium Total Bilirubin AST ALT Alkaline Phosphatase Total Protein Albumin Urine Color Dkyellow Urine Appearance Slcloudy Urine pH 6.0 Ur Specific [place] 1.019 Urine Protein 1+ H Urine Glucose (UA) Negative Urine Ketones Negative Urine Blood Negative Urine Nitrite Negative Urine Bilirubin Negative Urine Urobilinogen 4.0 e.u/dl H Ur Leukocyte Esterase 3+ H D Urine WBC (Auto) 63 Urine RBC (Auto) 1 Ur Epithelial Cells Rare Urine Bacteria Rare Urine Mucus Rare RPR Titer HIV 1&2 Antibody Screen Negative HIV P24 Antigen Negative 01/19/19 01/19/19 07:40 07:40 WBC RBC Hgb Hct MCV MCH MCHC RDW Plt Count MPV Sodium 140 Potassium 3.4 L Chloride 105 Carbon Dioxide 27 Anion Gap 8 BUN 11 Creatinine 0.8 Creat Clearance w eGFR 80.71 Random Glucose 117 H Calcium 8.4 L Total Bilirubin 0.5 AST 36 ALT 45 Alkaline Phosphatase 84 Total Protein 6.8 Albumin 3.5 Urine Color Urine Appearance Urine pH Ur Specific [place] Urine Protein Urine Glucose (UA) Urine Ketones Urine Blood Urine Nitrite Urine Bilirubin Urine Urobilinogen Ur Leukocyte Esterase Urine WBC (Auto) Urine RBC (Auto) Ur Epithelial Cells Urine Bacteria Urine Mucus RPR Titer Nonreactive HIV 1&2 Antibody Screen HIV P24 Antigen LABS NOTED. UA ORDERED FOR URINARY SYMPTOMS. RESULTS NOTED. 01/19/19 15:28 Assessment: 01/19/19 15:27 WITHDRAWAL SYMPTOMS. URINARY TRACT INFECTION. HYPOKALEMIA. 01/19/19 15:30 Plan: CONTINUE DETOX. INCREASE DAILY PO FLUID INTAKE. PRN FLEXERIL FOR BODY ACHES. START BACTRIM DS PO BID FOR UTI. PRN MOM FOR CONSTIPATION. K-DUR, 20 MEQ PO BID FOR HYPOKALEMIA. REPEAT K LEVEL ON 01/21/2019.
[2019-01-19] MEDS: SULFAMETHOXAZOLE/TRIMETHOPRIM 800MG/160MG D.S. TABLET PO SCH ×2 (15:52→22:21)
[2019-01-19] MEDS: POTASSIUM CHLORIDE TABS 20 MEQ TABLET.ER (FP) PO SCH (17:35)
[2019-01-19] MEDS: THIAMINE HCL 100 MG TABLET (FP) PO SCH (22:20)
[2019-01-19] MEDS: QUEtiapine FUMARATE 200 MG TABLET PO SCH (22:21)
[2019-01-19] MEDS: BUDESONIDE/FORMETEROL FUMARATE 160/4.5 mcg INHALER IH SCH (22:24)
[2019-01-20] MEDS: diazePAM 5 MG TABLET PO PRN ×3 (03:32→17:28)
[2019-01-20] MEDS: NICOTINE POLACRILEX 4 MG GUM BUC PRN ×6 (03:33→22:20)
[2019-01-20] MEDS: guaiFENesin 200 MG/10 ML 10 ML UNIT-DOSE CUPS PO PRN (03:33)
[2019-01-20] MEDS ORDERED: METHADONE HCL 10 MG TABLET ONE (04:42)
[2019-01-20] MEDS ORDERED: METHADONE HCL 40 MG DISPERSABLE TABLET ONE (04:43)
[2019-01-20] MEDS: METHADONE 80 MG, METHADONE 20 MG PO SCH (06:03)
[2019-01-20] MEDS: NICOTINE 21 MG/24 HOURS TOPICAL PATCH TD SCH (10:28)
[2019-01-20] MEDS: BUDESONIDE/FORMETEROL FUMARATE 160/4.5 mcg INHALER IH SCH ×2 (10:29→22:14)
[2019-01-20] MEDS: PRENATAL VITAMINS W/ FOLIC ACID TABLET (FP) PO SCH (10:29)
[2019-01-20] MEDS: POTASSIUM CHLORIDE TABS 20 MEQ TABLET.ER (FP) PO SCH ×2 (10:30→17:25)
[2019-01-20] MEDS: SULFAMETHOXAZOLE/TRIMETHOPRIM 800MG/160MG D.S. TABLET PO SCH ×2 (10:30→22:15)
[2019-01-20] MEDS: MINERAL OIL/PETROLAT/WATER TOPICAL CREAM 113 GM JAR TP SCH (10:30)
[2019-01-20] MEDS: RANITIDINE HCL 150 MG TABLET (FP) PO SCH ×2 (10:30→22:15)
[2019-01-20] MEDS: QUEtiapine FUMARATE 50 MG TABLET PO SCH (10:30)
[2019-01-20] MEDS: BACITRACIN 0.9 GM PACKET TP SCH ×2 (10:30→22:16)
[2019-01-20] MEDS: TRIAMCINOLONE ACET 0.025% OINTMENT 15 GM TUBE TP SCH ×2 (10:32→22:14)
[2019-01-20] MEDS ORDERED: ALBUTEROL SO4 2.5/IPRATROPIUM 0.5 INH SOL 3 ML VIAL.NEB. NEB PRN (10:37)
[2019-01-20] MEDS: diazePAM 5 MG TABLET PO SCH ×2 (10:45→22:15)
[2019-01-20] MEDS: CYCLOBENZAPRINE HCL 10 MG TABLET (FP) PO PRN ×2 (15:09→22:20)
--- NOTE | 2019-01-20 16:11 | PN ---
S CIWA - CIWA Score Nausea/Vomitin-No Nausea/No Vomiting Muscle Tremors: 2 Anxiety: 3 Agitation: 1-Slight > Activity Paroxysmal Sweats: 3 Orientation: 0-Oriented Tacttile Disturbances: 2-Mild Itch/Numbness/Burn Auditory Disturbances: 0-None Visual Disturbances: 2-Mild Sensitivity Headache: 0-None Present CIWA-Ar Total Score: 13 BHS Progress Note (SOAP) Subjective: Stomach Cramping, Constipation, Body Aches, Tremors, Interrupted Sleep, Hot Flashes, Sweating. Objective: PATIENT A & O X 3, OBSERVED AMBULATING ON UNIT. IN NO ACUTE DISTRESS. 01/20/19 16:10 Vital Signs Temperature 97.4 F L 01/20/19 14:10 Pulse Rate 95 H 01/20/19 14:10 Respiratory Rate 18 01/20/19 14:10 Blood Pressure 118/75 01/20/19 14:10 O2 Sat by Pulse Oximetry (%) Laboratory Tests 01/18/19 01/19/19 01/19/19 13:00 07:40 07:40 WBC 8.2 RBC 4.86 Hgb 14.9 Hct 43.1 D MCV 88.8 MCH 30.7 MCHC 34.5 RDW 15.1 D Plt Count 223 MPV 8.7 D Sodium Potassium Chloride Carbon Dioxide Anion Gap BUN Creatinine Creat Clearance w eGFR Random Glucose Calcium Total Bilirubin AST ALT Alkaline Phosphatase Total Protein Albumin Urine Color Dkyellow Urine Appearance Slcloudy Urine pH 6.0 Ur Specific [place] 1.019 Urine Protein 1+ H Urine Glucose (UA) Negative Urine Ketones Negative Urine Blood Negative Urine Nitrite Negative Urine Bilirubin Negative Urine Urobilinogen 4.0 e.u/dl H Ur Leukocyte Esterase 3+ H D Urine WBC (Auto) 63 Urine RBC (Auto) 1 Ur Epithelial Cells Rare Urine Bacteria Rare Urine Mucus Rare RPR Titer HIV 1&2 Antibody Screen Negative HIV P24 Antigen Negative 01/19/19 01/19/19 07:40 07:40 WBC RBC Hgb Hct MCV MCH MCHC RDW Plt Count MPV Sodium 140 Potassium 3.4 L Chloride 105 Carbon Dioxide 27 Anion Gap 8 BUN 11 Creatinine 0.8 Creat Clearance w eGFR 80.71 Random Glucose 117 H Calcium 8.4 L Total Bilirubin 0.5 AST 36 ALT 45 Alkaline Phosphatase 84 Total Protein 6.8 Albumin 3.5 Urine Color Urine Appearance Urine pH Ur Specific [place] Urine Protein Urine Glucose (UA) Urine Ketones Urine Blood Urine Nitrite Urine Bilirubin Urine Urobilinogen Ur Leukocyte Esterase Urine WBC (Auto) Urine RBC (Auto) Ur Epithelial Cells Urine Bacteria Urine Mucus RPR Titer Nonreactive HIV 1&2 Antibody Screen HIV P24 Antigen LABS NOTED. Assessment: 01/20/19 16:10 WITHDRAWAL SYMPTOMS. HYPOKALEMIA. Plan: CONTINUE DETOX. INCREASE DAILY PO FLUID INTAKE. PATIENT SCHEDULED FOR D/C TOMORROW.
[2019-01-20] MEDS: QUEtiapine FUMARATE 200 MG TABLET PO SCH (22:16)
[2019-01-20] MEDS: THIAMINE HCL 100 MG TABLET (FP) PO SCH (22:16)
[2019-01-21] MEDS: diazePAM 5 MG TABLET PO PRN (01:57)
[2019-01-21] MEDS: ALBUTEROL SO4 8 GM HFA INHALER IH PRN (01:57)
[2019-01-21] MEDS: NICOTINE POLACRILEX 4 MG GUM BUC PRN ×2 (01:58→05:43)
[2019-01-21] MEDS: guaiFENesin 200 MG/10 ML 10 ML UNIT-DOSE CUPS PO PRN (01:58)
[2019-01-21] MEDS ORDERED: METHADONE HCL 10 MG TABLET ONE (04:58)
[2019-01-21] MEDS ORDERED: METHADONE HCL 40 MG DISPERSABLE TABLET ONE (04:58)
[2019-01-21] MEDS: METHADONE 80 MG, METHADONE 20 MG PO SCH (05:40)
[2019-01-21] MEDS ORDERED: diazePAM 5 MG TABLET PO SCH (06:00)
[2019-01-21 09:58] VITALS: BP 128/75; PULSE 84; TEMP 96.7
[2019-01-21] MEDS: PRENATAL VITAMINS W/ FOLIC ACID TABLET (FP) PO SCH (10:19)
[2019-01-21] MEDS: BUDESONIDE/FORMETEROL FUMARATE 160/4.5 mcg INHALER IH SCH (10:19)
[2019-01-21] MEDS: MINERAL OIL/PETROLAT/WATER TOPICAL CREAM 113 GM JAR TP SCH (10:20)
[2019-01-21] MEDS: TRIAMCINOLONE ACET 0.025% OINTMENT 15 GM TUBE TP SCH (10:21)
[2019-01-21] MEDS: BACITRACIN 0.9 GM PACKET TP SCH (10:21)
[2019-01-21] MEDS: SULFAMETHOXAZOLE/TRIMETHOPRIM 800MG/160MG D.S. TABLET PO SCH (10:21)
[2019-01-21] MEDS: POTASSIUM CHLORIDE TABS 20 MEQ TABLET.ER (FP) PO SCH (10:22)
[2019-01-21] MEDS: NICOTINE 21 MG/24 HOURS TOPICAL PATCH TD SCH (10:22)
[2019-01-21] MEDS: RANITIDINE HCL 150 MG TABLET (FP) PO SCH (10:23)
[2019-01-21] MEDS: QUEtiapine FUMARATE 50 MG TABLET PO SCH (10:23)
--- NOTE | 2019-01-21 12:20 | DS ---
[facility] Detox Discharge Summary Admission Date: 01/18/19 Discharge Date: 01/21/19 - History Present History: Sedative Dependence Additional Comments: 38 years old female admitted on 01/18/19 for benzo withdrawal stabilization completed detox regimen [facility] - Physical Exam Results Vital Signs: Vital Signs Temperature 96.7 F L 01/21/19 09:57 Pulse Rate 84 01/21/19 09:57 Respiratory Rate 18 01/21/19 09:57 Blood Pressure 128/75 01/21/19 09:57 O2 Sat by Pulse Oximetry (%) Pertinent Admission Physical Exam Findings: benzo withdrawal sx Laboratory Last Values WBC 8.2 K/mm3 (4.0-10.0) 01/19/19 07:40 RBC 4.86 M/mm3 (3.60-5.2) 01/19/19 07:40 Hgb 14.9 GM/dL (10.7-15.3) 01/19/19 07:40 Hct 43.1 % (32.4-45.2) D 01/19/19 07:40 MCV 88.8 fl (80-96) 01/19/19 07:40 MCH 30.7 pg (25.7-33.7) 01/19/19 07:40 MCHC 34.5 g/dl (32.0-36.0) 01/19/19 07:40 RDW 15.1 % (11.6-15.6) D 01/19/19 07:40 Plt Count 223 K/MM3 (134-434) 01/19/19 07:40 MPV 8.7 fl (7.5-11.1) D 01/19/19 07:40 Sodium 140 mmol/L (136-145) 01/19/19 07:40 Potassium 4.6 mmol/L (3.5-5.1) 01/21/19 07:35 Chloride 105 mmol/L (98-107) 01/19/19 07:40 Carbon Dioxide 27 mmol/L (21-32) 01/19/19 07:40 Anion Gap 8 MMOL/L (8-16) 01/19/19 07:40 BUN 11 mg/dL (7-18) 01/19/19 07:40 Creatinine 0.8 mg/dL (0.55-1.3) 01/19/19 07:40 Creat Clearance w eGFR 80.71 (>60) 01/19/19 07:40 Random Glucose 117 mg/dL (74-106) H 01/19/19 07:40 Calcium 8.4 mg/dL (8.5-10.1) L 01/19/19 07:40 Total Bilirubin 0.5 mg/dL (0.2-1) 01/19/19 07:40 AST 36 U/L (15-37) 01/19/19 07:40 ALT 45 U/L (13-61) 01/19/19 07:40 Alkaline Phosphatase 84 U/L (45-117) 01/19/19 07:40 Total Protein 6.8 g/dl (6.4-8.2) 01/19/19 07:40 Albumin 3.5 g/dl (3.4-5.0) 01/19/19 07:40 Urine Color Dkyellow 01/18/19 13:00 Urine Appearance Slcloudy 01/18/19 13:00 Urine pH 6.0 (5.0-8.0) 01/18/19 13:00 Ur Specific [place] 1.019 (1.010-1.035) 01/18/19 13:00 Urine Protein 1+ (NEGATIVE) H 01/18/19 13:00 Urine Glucose (UA) Negative (NEGATIVE) 01/18/19 13:00 Urine Ketones Negative (NEGATIVE) 01/18/19 13:00 Urine Blood Negative (NEGATIVE) 01/18/19 13:00 Urine Nitrite Negative (NEGATIVE) 01/18/19 13:00 Urine Bilirubin Negative (<2.0 mg/dL) 01/18/19 13:00 Urine Urobilinogen 4.0 e.u/dl mg/dL (0.2-1.0) H 01/18/19 13:00 Ur Leukocyte Esterase 3+ (NEGATIVE) H D 01/18/19 13:00 Urine WBC (Auto) 63 /hpf (3-5) 01/18/19 13:00 Urine RBC (Auto) 1 /hpf (0-3) 01/18/19 13:00 Ur Epithelial Cells Rare /HPF (FEW) 01/18/19 13:00 Urine Bacteria Rare /hpf (NONE SEEN) 01/18/19 13:00 Urine Mucus Rare 01/18/19 13:00 RPR Titer Nonreactive (NONREACTIVE) 01/19/19 07:40 HIV 1&2 Antibody Screen Negative 01/19/19 07:40 HIV P24 Antigen Negative 01/19/19 07:40 lab noted uti continue bactrim ds - Treatment Hospital Course: Detox Protocol Followed, Detoxed Safely, Responded well, Discharged Condition Good, Rehab Referral Accepted Patient has Accepted a Re[facility] Referral to: [facility] - Medication Discharge Medications: Ambulatory Orders Methadone [Dolophine -] 180 mg PO DAILY 01/29/18 Naproxen [Naprosyn -] 500 mg PO BID 05/13/18 [place] Carbonate [Eskalith -] 300 mg PO BID 09/01/18 Ranitidine [Zantac -] 150 mg PO BID #20 tablet 09/04/18 Buspirone HCl [Buspar -] 15 mg PO BID 09/05/18 Quetiapine Fumarate [Seroquel -] 300 mg PO HS 09/05/18 Amitriptyline HCl [Elavil -] 25 mg PO TID PRN #90 tablet 09/19/18 Divalproex [Depakote -] 500 mg PO BID #60 tablet.ec 09/19/18 Lurasidone HCl [Latuda -] 60 mg PO DAILY #90 tablet 09/19/18 Quetiapine Fumarate [Seroquel -] 300 mg PO HS #30 tablet 09/19/18 Quetiapine Fumarate [Seroquel] 100 mg PO AM #30 tablet 09/19/18 Divalproex [Depakote -] 500 mg PO BID #60 tablet.ec 09/20/18 Lurasidone HCl [Latuda -] 40 mg PO DAILY #30 tablet 09/20/18 Quetiapine Fumarate [Seroquel] 100 mg PO DAILY #30 tablet 09/20/18 Quetiapine Fumarate [Seroquel] 300 mg PO HS #30 tablet 09/20/18 Sulfamethoxazole/Trimethoprim [Bactrim Ds -] 1 tab PO BID 7 Days #14 tablet Albuterol Sulfate Inhaler - [Ventolin HFA Inhaler -] 2 puff IH Q4H PRN #1 inhaler 01/21/19 Budesonide/Formeterol Fumarate [SYMBICORT 160/4.5mcg -] 2 puff IH BID #1 inhaler 01/21/19 Sulfamethoxazole/Trimethoprim [Bactrim DS -] 1 each PO BID #10 tablet 01/21/19 - Diagnosis (1) Sedative, hypnotic or anxiolytic dependence with withdrawal, uncomplicated Current Visit: Yes Status: Acute (2) GERD (gastroesophageal reflux disease) Current Visit: Yes Status: Chronic Qualifiers: Esophagitis presence: without esophagitis Qualified Code(s): K21.9 - Gastro -esophageal reflux disease without esophagitis (3) Methadone maintenance therapy patient Current Visit: Yes Status: Chronic (4) Nicotine dependence Current Visit: Yes Status: Acute Qualifiers: Nicotine product type: cigarettes Substance use status: in withdrawal Qualified Code(s): F17.213 - Nicotine dependence, cigarettes, with withdrawal (5) Bipolar disorder Current Visit: Yes Status: Suspected Qualifiers: Active/Remission status: in partial remission Most recent bipolar episode type: mixed Qualified Code(s): F31.77 - Bipolar disorder, in partial remission , most recent episode mixed - AMA Did Patient Leave Against Medical Advice: No
== END 2019-01-21 12:36 | disposition home or self-care (01) | DRG 773 ==
LOC: YASAS 10:41 → Y3N 17:33
PROVIDERS: ADMIT Surgery; ATTEND Surgery
PROC: HZ2ZZZZ Detoxification Services for Substance Abuse Treatment (ICD-10-PCS; principal; 2019-01-18)
DX: F13.230 Sedative, hypnotic or anxiolytic dependence with withdrawal, uncomplicated (principal); F14.20 Cocaine dependence, uncomplicated; F12.20 Cannabis dependence, uncomplicated; F11.20 Opioid dependence, uncomplicated; F17.210 Nicotine dependence, cigarettes, uncomplicated; F31.77 Bipolar disorder, in partial remission, most recent episode mixed; F39 Unspecified mood [affective] disorder; F19.280 Other psychoactive substance dependence with psychoactive substance-induced anxiety disorder; F19.282 Other psychoactive substance dependence with psychoactive substance-induced sleep disorder; E87.6 Hypokalemia; N39.0 Urinary tract infection, site not specified; K21.9 Gastro-esophageal reflux disease without esophagitis; K59.00 Constipation, unspecified; J45.909 Unspecified asthma, uncomplicated; E66.9 Obesity, unspecified; Z68.33 Body mass index [BMI] 33.0-33.9, adult; Z91.5 Personal history of self-harm
CPT/HCPCS: 36415; 80053; 81003; 81015; 84132; 85027; 86593; 87389

== ENCOUNTER 2019-12-25 15:14 | Inpatient (IN) | payer OTHER ==
--- NOTE | 2019-12-25 15:41 | BHS.RME ---
Substance Use & Tx History - Substance Use History Opiates (Heroin) Substance amount: 4-5 bags Frequency of use: Daily Substance route: Inhalation (ex: sniffing or snorting) Date of Last Use: 12/24/19 Cocaine (Powder) Substance amount: $100 Frequency of use: Less than 3 times per week Substance route: Inhalation (ex: sniffing or snorting) Date of Last Use: 12/23/19 COWS - Scale Resting Pulse: 1= [place] 81-100 Sweatin= Beads of Sweat on Face Restless Observation: 1= Difficult to Sit Still Pupil Size: 1= Pupils >than Normal Bone or Joint Aches: 1= Mild Discomfort Runny Nose/ Eye Tearin= Nasal Congestion GI Upset > 30mins: 1= Stomach Cramp Tremor Observation: 1= Tremor [place], Not Seen Yawning Observation: 0= None Anxiety or Irritability: 4=Extreme Anxiety Goose Flesh Skin: 0=Smooth Skin COWS Score: 14
[2019-12-25 18:52] VITALS: BMI 26.3
--- NOTE | 2019-12-25 19:36 | HP ---
COWS - Scale Resting Pulse: 1= [place] 81-100 Sweatin= Chills/Flushing Restless Observation: 1= Difficult to Sit Still Pupil Size: 1= Pupils >than Normal Bone or Joint Aches: 1= Mild Discomfort Runny Nose/ Eye Tearin= Nasal Congestion GI Upset > 30mins: 1= Stomach Cramp Tremor Observation: 1= Tremor [place], Not Seen Yawning Observation: 0= None Anxiety or Irritability: 2=Irritable/Anxious Goose Flesh Skin: 0=Smooth Skin COWS Score: 10 CIWA Score - Admission Criteria OASAS Guidelines: Admission for Medically Managed Detox: Requires at least one of the followin. CIWA greater than 12 2. Seizures within the past 24 hours 3. Delirium tremens within the past 24 hours 4. Hallucinations within the past 24 hours 5. Acute intervention needed for co occurring medical disorder 6. Acute intervention needed for co occurring psychiatric disorder 7. Severe withdrawal that cannot be handled at a lower level of care (continued vomiting, continued diarrhea, abnormal vital signs) requiring intravenous medication and/or fluids 8. Admitting History and Physical - Admission History of Present Illness: This is a 39 year old female with PMH of asthma, HTN, and depression. She presented to the clinic for detox from heroin and methadone. She started using heroin 6 years ago, uses 8-10 bags/day, sniffs and smokes, last use 12/22, OD three times last one in Oct 2019. Started [facility] May 2019 at [facility], 110[facility]. Started using cocaine around 15 years ago, uses 1 bag/week, sniffs Has been smoking for around 20 years, smokes 4-5 cigarettes per day, uses nicotine gum 4mg and 21mg patches at home Uses Klonipin, prescribed by her psychiatrist, also on seroquel for insomnia LMP: 1 week ago, sexually active with 1 partner, no contraceptive use ROS: - Abdominal cramps - Muscle aches - Chills PMH: - Asthma, uses albuterol and symbicort - HTN, uses Clonidine PSH: - C- Section - Appendectomy 2008 Social: - Lives with sister, worked as a medical case worker Physical Exam: - AOx3 - Lungs: Clear B/L - CVS: RRR - GI: Soft, ND, NT - Extremities: Pulses intact, no edema - [employer]: Motor 5/5, sensations intact - Past Medical History ...LMP: 11/24/18 ...: No - Smoking History Smoking history: Current every day smoker Have you smoked in the past 12 months: Yes Aproximately how many cigarettes per day: 10 - Alcohol/Substance Use Hx Alcohol Use: No Admission ROS S - HPI Allergies/Adverse Reactions: Allergies Allergy/AdvReac Type Severity Reaction Status Date / Time No Known Allergies Allergy Verified 12/25/19 18:39 Patient History - Patient Medical History Hx Anemia: No Hx Asthma: Yes Hx Chronic Obstructive Pulmonary Disease (COPD): No Hx Cancer: No Hx Cardiac Disorders: No Hx Congestive Heart Failure: No Hx Hypertension: Yes Hx Hypercholesterolemia: No Hx Pacemaker: No HX Cerebrovascular Accident: No Hx Seizures: No Hx Dementia: No Hx Diabetes: No Hx Gastrointestinal Disorders: Yes (GERD) Hx Liver Disease: No Hx Genitourinary Disorders: No Hx Sexually Transmitted Disorders: No Hx Renal Disease (ESRD): No Hx Thyroid Disease: No Hx Human Immunodeficiency Virus (HIV): No (LAST 08/23 NEGATIVE) Hx Hepatitis C: No Hx Depression: Yes Hx Suicide Attempt: No Hx Bipolar Disorder: No Hx Schizophrenia: No - Patient Surgical History Past Surgical History: Yes Hx Neurologic Surgery: No Hx Cataract Extraction: No Hx Cardiac Surgery: No Hx Lung Surgery: No Hx Breast Surgery: No Hx Breast Biopsy: No Hx Abdominal Surgery: No Hx Appendectomy: No Hx Cholecystectomy: No Hx Genitourinary Surgery: No Hx Section: Yes (2009) Hx Orthopedic Surgery: No Hx Hysterectomy: No Other Surgical History: appendectomy at age 29 Anesthesia Reaction: No - PPD History Previous Implant?: Yes Documented Results: Negative w/proof Implanted On Prior [facility] Admission?: Yes Date: 05/15/18 Results: 0 MM - Reproductive History Last Menstrual Period: 11/24/18 Patient : No - Smoking Cessation Smoking history: Current every day smoker Have you smoked in the past 12 months: Yes Aproximately how many cigarettes per day: 10 Cigars Per Day: 0 Hx Chewing Tobacco Use: No Initiated information on smoking cessation: Yes 'Breaking Loose' booklet given: 12/26/19 - Substances abused Heroin Substance route: Inhalation Frequency: Daily Amount used: 8-10bags Age of first use: 33 Date of last use: 12/24/19 Cocaine Substance route: Inhalation Frequency: 1-2 times per week Amount used: $80/wk Age of first use: 23 Date of last use: 12/22/19 Admission Physical Exam BHS - Vital Signs Vital Signs: Vital Signs - 24 hr 12/25/19 18:47 Temperature 75 F L Pulse Rate 75 Respiratory 18 Rate Blood Pressure 119/81 Breathalyzer - Breathalyzer Breathalyzer: 0 Urine Drug Screen - Test Device Lot number: [id number] Expiration date: 10/06/21 - Control Is test valid?: Yes - Results Drug screen NEGATIVE: No Urine drug screen results: THC-Marijuana, DARIO-Cocaine, MOP-Opiates, MTD- Methadone, BZO-Benzodiazepines Inpatient Rehab Admission - Rehab Decision to Admit Inpatient rehab admission?: No
[2019-12-25] MEDS ORDERED: ACETAMINOPHEN 325 MG TABLET (FP) PO PRN ×2 (19:42)
[2019-12-25] MEDS ORDERED: METHADONE HCL 10 MG TABLET (FOR DETOX USE ONLY) PO ONE ×2 (19:42→21:00)
[2019-12-25] MEDS ORDERED: MAGNESIUM HYDROX 2400MG/30ML ORAL SUSPENSION 30 ML CUP PO PRN (19:42)
[2019-12-25] MEDS ORDERED: IBUPROFEN 400 MG TABLET (FP) PO PRN (19:42)
[2019-12-25] MEDS ORDERED: MAGNESIUM CITRATE 300 ML BOTTLE PO PRN (19:42)
[2019-12-25] MEDS ORDERED: BISMUTH SUBSALICYLATE 524 MG/30 ML UD PO PRN (19:42)
[2019-12-25] MEDS ORDERED: MENTHOL/PHENOL 1 EACH UD MM PRN (19:42)
[2019-12-25] MEDS ORDERED: ALBUTEROL SO4 HFA INHALER IH PRN (19:44)
[2019-12-25] MEDS ORDERED: COLLOIDAL OATMEAL 1 BAR EACH TP PRN (19:48)
--- NOTE | 2019-12-25 20:02 | PN ---
Teaching Attending Note Name of Resident: Bc Badillo ATTENDING PHYSICIAN STATEMENT I saw and evaluated the patient. I reviewed the resident's note and discussed the case with the resident. I agree with the resident's findings and plan as documented. SUBJECTIVE: 39 y.o. pt presents from [facility] w/ letter dated 12/25/2019 voluntary detox from methadone , claims the latest dose was Tuesday @ 110 mg Methadone . cocaine : 1 x /week cannabis : " once in a while " benzo - rx . OBJECTIVE: wnwd Vital Signs - 24 hr 12/25/19 18:47 Temperature 75 F L Pulse Rate 75 Respiratory 18 Rate Blood Pressure 119/81 ASSESSMENT AND PLAN: OUD on agonist therapy
[2019-12-25] MEDS ORDERED: clonazePAM 0.5 MG TABLET PO PRN (20:05)
[2019-12-25] MEDS ORDERED: chlordiazePOXIDE HCL 25 MG CAPSULE PO ONE (20:28)
[2019-12-25] MEDS: THIAMINE HCL 100 MG TABLET (FP) PO SCH (21:11)
[2019-12-25] MEDS: FAMOTIDINE 20 MG TABLET PO SCH (21:12)
[2019-12-25] MEDS ORDERED: PATIENT'S OWN MEDICATION (NON-FORMULARY) (Ranitidine [Zantac -] 150 MG) PO SCH (22:00)
[2019-12-25] MEDS ORDERED: clonazePAM 0.5 MG TABLET PO SCH (22:00)
[2019-12-25] MEDS ORDERED: LITHIUM CARBONATE 300 MG CAPSULE (FP) PO SCH (22:00)
[2019-12-25] MEDS ORDERED: LURASIDONE HCL 40 MG TABLET PO SCH (22:00)
[2019-12-25] MEDS ORDERED: AMITRIPTYLINE HCL 25 MG TABLET PO SCH (22:00)
[2019-12-25] MEDS: BUDESONIDE/FORMETEROL FUMARATE 160/4.5 mcg INHALER IH SCH (22:18)
[2019-12-25] MEDS: cloNIDine HCL 0.1 MG TABLET PO PRN (22:19)
[2019-12-25] MEDS: MELATONIN 5 MG TABLETS PO PRN (22:19)
[2019-12-25] MEDS: MAG HYDROX/AL HYDROX/SIMETH 30 ML UNIT-DOSE CUP PO PRN (22:21)
[2019-12-25] MEDS: NICOTINE POLACRILEX 4 MG GUM BUC PRN (22:22)
[2019-12-25] MEDS: TRIAMCINOLONE ACET 0.1% CREAM 15 GM TUBE TP SCH (23:08)
[2019-12-26] MEDS ORDERED: METHADONE HCL 10 MG TABLET (FOR DETOX USE ONLY) ONE (08:54)
[2019-12-26] MEDS ORDERED: METHADONE HCL 5 MG TABLET (FOR DETOX USE ONLY) ONE (08:55)
--- NOTE | 2019-12-26 09:26 | PN ---
BHS COWS - Scale Resting Pulse: 1= [place] 81-100 Sweatin= Chills/Flushing Restless Observation: 0= Sits Still Pupil Size: 1= Pupils >than Normal Bone or Joint Aches: 2= Severe Diffuse Aches Runny Nose/ Eye Tearin= None GI Upset > 30mins: 0= None Tremor Observation of Outstretched Hands: 0= None Yawning Observation: 0= None Anxiety or Irritability: 1=Feels Anxious/Irritable Goose Flesh Skin: 3=Piloerection COWS Score: 9 BHS Progress Note (SOAP) Subjective: 39 years old female admitted on 12/25/19 for opiate withdrawal sx management treating with methadone detox regiment feeling ok prefers shower today encourage administer aveeno soap poor appetite ensure supplement requests valium prn as adjunct with methadone discontinue klonopin no longer librium prn begin valium prn Objective: 12/26/19 09:25 Vital Signs Temperature 97.6 F 12/26/19 07:59 Pulse Rate 84 12/26/19 07:59 Respiratory Rate 18 12/26/19 07:59 Blood Pressure 106/69 12/26/19 07:59 O2 Sat by Pulse Oximetry (%) Laboratory Last Values POC Urine HCG, Qual Negative 12/25/19 18:43 lab pending Assessment: 12/26/19 09:26 opiate withdrawal 12/26/19 09:32 discussed medication assisted treatment program 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
[2019-12-26] MEDS ORDERED: diazePAM 5 MG TABLET PO PRN (09:30)
[2019-12-26] MEDS ORDERED: NICOTINE 21 MG/24 HOURS TOPICAL PATCH TD SCH (10:00)
[2019-12-26] MEDS ORDERED: QUEtiapine FUMARATE 300 MG TABLET PO SCH (10:00)
[2019-12-26] MEDS ORDERED: METHADONE (DETOX) 20 MG, METHADONE (DETOX) 5 MG PO ONE (10:00)
[2019-12-26] MEDS: TRIAMCINOLONE ACET 0.1% CREAM 15 GM TUBE TP SCH ×2 (10:02→22:20)
[2019-12-26] MEDS: BUDESONIDE/FORMETEROL FUMARATE 160/4.5 mcg INHALER IH SCH ×2 (10:03→22:21)
[2019-12-26] MEDS: PRENATAL VITAMINS W/ FOLIC ACID TABLET (FP) PO SCH (10:03)
[2019-12-26] MEDS: FAMOTIDINE 20 MG TABLET PO SCH ×2 (10:04→22:21)
[2019-12-26] MEDS: NICOTINE 21 MG/24 HOURS TOPICAL PATCH TD SCH (10:07)
[2019-12-26] MEDS: NICOTINE POLACRILEX 4 MG GUM BUC PRN ×5 (10:08→22:25)
[2019-12-26] MEDS: MAG HYDROX/AL HYDROX/SIMETH 30 ML UNIT-DOSE CUP PO PRN (10:09)
[2019-12-26] MEDS: diazePAM 5 MG TABLET PO PRN ×3 (10:44→22:21)
[2019-12-26 11:58] LABS: ALBUMIN 3.4 g/dl (3.4-5.0); BILIRUBIN,TOTAL 0.2 mg/dL (0.2-1); CALCIUM 8.8 mg/dL (8.5-10.1); POTASSIUM 3.5 mmol/L (3.5-5.1); TOT PROT 6.8 g/dl (6.4-8.2)
--- NOTE | 2019-12-26 12:18 | CONSULT ---
[facility] Psychiatric Consult - Data Date of interview: 12/26/19 Admission source: [facility] Identifying data: Revisit to [facility] and admission to [address] [place] [address] for this 39 y/o [place]-born female self-referred for detoxification treatment. PARAMJIT issues : heroin, crack/cocaine, nicotine. Patient is single, mother of three, domiciled, unemployed and supported on welfare. Substance Abuse History: Discussed with patient. Details in current [facility] report as follows : Smoking history: Current every day smoker. Have you smoked in the past 12 months: Yes. Aproximately how many cigarettes per day: 10. Cigars Per Day: 0. Hx Chewing Tobacco Use: No. Initiated information on smoking cessation : Yes. 'Breaking Loose' booklet given: 12/26/19. - Substances abused. Heroin. Substance route: Inhalation. Frequency: Daily. Amount used: 8- 10bags. Age of first use: 33. Date of last use: 12/24/19. Cocaine. Substance route: Inhalation. Frequency: 1-2 times per week. Amount used: $80/ wk. Age of first use: 23. Date of last use: 12/22/19 Medical History: Medical profile is remarkable for bronchial asthma, hypertension, GERD and history of surgeries (appendectomy + section). Psychiatric History: Patient endorses history of three psychiatric hospitalizations (all at [facility]). Talha seen at [facility] psychiatric OPD clinic for depression (2010). First psychiatric hospitalization occurred in 2018 due to suicide attempt via wrist-cutting in response to her mother's (heart attack). Ms Rooney is receiving outpatient psychiatric services at [facility] OPD. She endorses diagnoses of Bipolar disorder + PTSD. Maintenance medications consist of seroquel 100 mg/day + 400 mg/hs + doxepin 100 mg hs + latuda 30 mg hs + klonopin 2 mg/tid + buspar 30 mg/tid + gabapentin 400 mg/tid + lithium (dose not recalled). Patient is also enrolled in the methadone maintenance program at [facility] (30 mg/day). Physical/Sexual Abuse/Trauma History: Not discussed. Patient declines. Additional Comment: Urine drug screen results: THC-Marijuana, DARIO-Cocaine, MOP- Opiates, MTD-Methadone, BZO-Benzodiazepines. Noted. Mental Status Exam - Mental Status Exam Alert and Oriented to: Time, Place, Person Cognitive Function: Good Patient Appearance: Well Groomed Mood: Nervous, Irritable Affect: Mood Congruent, Labile Patient Behavior: Fatigued, Cooperative Speech Pattern: Clear, Appropriate Voice Loudness: Normal Thought Process: Goal Oriented Thought Disorder: Not Present Hallucinations: Denies Suicidal Ideation: Denies Homicidal Ideation: Denies Insight/Judgement: Poor Sleep: Poorly, Difficulty falling asleep Appetite: Good Gait/Station: Normal Psychiatric Findings - Problem List ([place] 1, 2,3) (1) Opioid dependence on agonist therapy Current Visit: Yes Status: Chronic (2) Cocaine dependence Current Visit: Yes Status: Chronic Qualifiers: Substance use status: uncomplicated Qualified Code(s): F14.20 - Cocaine dependence, uncomplicated (3) Nicotine dependence Current Visit: Yes Status: Chronic Qualifiers: Nicotine product type: cigarettes Substance use status: in withdrawal Qualified Code(s): F17.213 - Nicotine dependence, cigarettes, with withdrawal (4) Cannabis dependence Current Visit: Yes Status: Chronic (5) Substance induced mood disorder Current Visit: Yes Status: Chronic (6) Bipolar disorder Current Visit: Yes Status: Chronic Qualifiers: Active/Remission status: in partial remission Most recent bipolar episode type: mixed Qualified Code(s): F31.77 - Bipolar disorder, in partial remission , most recent episode mixed (7) Insomnia Current Visit: Yes Status: Chronic - Initial Treatment Plan Initial Treatment Plan: Drill Sharpener was approached spontaneously by the patient who insisted on resuming psychotropic medications. Case brought to the attention of medical RESEARCH ASSISTANT PROFESSOR Alyssa Almanzar (in person) for necessity of a psychiatric consult request. RESEARCH ASSISTANT PROFESSOR agrees verbally and patient is interviewed by this commercial lines underwriter for resumption of psychotropic medications. Records ([facility]) revisited. Psychoeducation. Sleep hygiene. Detoxification. NA meetings. Medications discussed with pharmacist at [facility] ([phone]) : no refills for seroquel 100 mg/400 mg since August 06, 2019 ; no lithium or latuda on file ; confirmed doxepin 100 mg/hs (refill picked up on 12/03/19). Patient insists on resuming quetiapine. Medications are resumed as follows : seroquel 200 mg po hs (if no sedation). Doxepin held until review of EKG. Side effects/benefits discussed with patient. Ms Rooney is agreeable with this plan of care. Gave consent (verbal) to MD. Sampson.
[2019-12-26 12:30] LABS: HEMATOCRIT 40.2 % (32.4-45.2); HEMOGLOBIN 13.6 GM/dL (10.7-15.3); MCH 30.7 pg (25.7-33.7); MEAN CELL VOLUME 90.4 fl (80-96); MEAN PLT VOLUME 8.6 fl (7.5-11.1); PLATELET COUNT 244 K/MM3 (134-434); RBC 4.45 M/mm3 (3.60-5.2); RDW 13.8 % (11.6-15.6); WHITE BLOOD COUNT 8.6 K/mm3 (4.0-10.0)
[2019-12-26] MEDS: cloNIDine HCL 0.1 MG TABLET PO PRN ×3 (12:50→22:22)
[2019-12-26] MEDS: THIAMINE HCL 100 MG TABLET (FP) PO SCH (22:21)
[2019-12-26] MEDS: QUEtiapine FUMARATE 200 MG TABLET PO SCH (22:21)
[2019-12-26] MEDS: MELATONIN 5 MG TABLETS PO PRN (22:22)
[2019-12-26] MEDS: METHOCARBAMOL 500 MG TABLET PO PRN (22:23)
[2019-12-27] MEDS: NICOTINE POLACRILEX 4 MG GUM BUC PRN ×5 (02:41→22:07)
[2019-12-27] MEDS: diazePAM 5 MG TABLET PO PRN ×4 (02:41→19:19)
[2019-12-27] MEDS: cloNIDine HCL 0.1 MG TABLET PO PRN ×3 (07:26→19:21)
[2019-12-27] MEDS: METHOCARBAMOL 500 MG TABLET PO PRN ×3 (07:29→22:05)
--- NOTE | 2019-12-27 08:57 | PN ---
BHS COWS - Scale Resting Pulse: 0= [place] 80 or Below Sweatin= Chills/Flushing Restless Observation: 0= Sits Still Pupil Size: 1= Pupils >than Normal Bone or Joint Aches: 1= Mild Discomfort Runny Nose/ Eye Tearin= Nasal Congestion GI Upset > 30mins: 1= Stomach Cramp Tremor Observation of Outstretched Hands: 1= Tremor [place], Not Seen Yawning Observation: 0= None Anxiety or Irritability: 2=Irritable/Anxious Goose Flesh Skin: 0=Smooth Skin COWS Score: 8 BHS Progress Note (SOAP) Subjective: 39 years old female admitted on 12/25/19 for opiate withdrawal sx management treating with valium prn and methadone detox regiments history of asthma and gerd seen by psychiatrist resume seroquel hold doxepin for ekg ate breakfast ambulating on hallway social with peers in day room Objective: 12/27/19 09:00 Vital Signs Temperature 98.2 F 12/27/19 06:23 Pulse Rate 79 12/27/19 06:23 Respiratory Rate 18 12/27/19 06:30 Blood Pressure 114/73 12/27/19 06:23 O2 Sat by Pulse Oximetry (%) Laboratory Last Values WBC 8.6 K/mm3 (4.0-10.0) 12/26/19 07:35 RBC 4.45 M/mm3 (3.60-5.2) 12/26/19 07:35 Hgb 13.6 GM/dL (10.7-15.3) 12/26/19 07:35 Hct 40.2 % (32.4-45.2) 12/26/19 07:35 MCV 90.4 fl (80-96) 12/26/19 07:35 MCH 30.7 pg (25.7-33.7) 12/26/19 07:35 MCHC 34.0 g/dl (32.0-36.0) 12/26/19 07:35 RDW 13.8 % (11.6-15.6) 12/26/19 07:35 Plt Count 244 K/MM3 (134-434) 12/26/19 07:35 MPV 8.6 fl (7.5-11.1) 12/26/19 07:35 Sodium 141 mmol/L (136-145) 12/26/19 07:35 Potassium 3.5 mmol/L (3.5-5.1) 12/26/19 07:35 Chloride 108 mmol/L (98-107) H 12/26/19 07:35 Carbon Dioxide 27 mmol/L (21-32) 12/26/19 07:35 Anion Gap 6 MMOL/L (8-16) L 12/26/19 07:35 BUN 16.0 mg/dL (7-18) 12/26/19 07:35 Creatinine 1.0 mg/dL (0.55-1.3) 12/26/19 07:35 Est GFR (CKD-EPI)AfAm 82.76 12/26/19 07:35 Est GFR (CKD-EPI)NonAf 71.41 12/26/19 07:35 Random Glucose 117 mg/dL (74-106) H 12/26/19 07:35 Calcium 8.8 mg/dL (8.5-10.1) 12/26/19 07:35 Total Bilirubin 0.2 mg/dL (0.2-1) 12/26/19 07:35 AST 11 U/L (15-37) L 12/26/19 07:35 ALT 25 U/L (13-61) 12/26/19 07:35 Alkaline Phosphatase 96 U/L (45-117) 12/26/19 07:35 Total Protein 6.8 g/dl (6.4-8.2) 12/26/19 07:35 Albumin 3.4 g/dl (3.4-5.0) 12/26/19 07:35 POC Urine HCG, Qual Negative 12/25/19 18:43 RPR Titer Nonreactive (NONREACTIVE) 12/26/19 07:35 HIV 1&2 Antibody Screen Cancelled 12/26/19 07:35 HIV P24 Antigen Cancelled 12/26/19 07:35 lab noted Assessment: 12/27/19 09:00 opiate withdrawal Plan: methadone regiment with valium prn for chronicity of alcohol and benzo misuse
[2019-12-27] MEDS ORDERED: METHADONE HCL 10 MG TABLET (FOR DETOX USE ONLY) PO ONE (10:00)
[2019-12-27] MEDS: TRIAMCINOLONE ACET 0.1% CREAM 15 GM TUBE TP SCH ×2 (10:03→22:04)
[2019-12-27] MEDS: BUDESONIDE/FORMETEROL FUMARATE 160/4.5 mcg INHALER IH SCH ×2 (10:03→22:03)
[2019-12-27] MEDS: PRENATAL VITAMINS W/ FOLIC ACID TABLET (FP) PO SCH (10:04)
[2019-12-27] MEDS: FAMOTIDINE 20 MG TABLET PO SCH ×2 (10:04→22:05)
[2019-12-27] MEDS: NICOTINE 21 MG/24 HOURS TOPICAL PATCH TD SCH (10:06)
[2019-12-27] MEDS: MAG HYDROX/AL HYDROX/SIMETH 30 ML UNIT-DOSE CUP PO PRN (10:07)
[2019-12-27] MEDS: hydrOXYzine PAMOATE 25 MG CAPSULE (FP) PO PRN ×2 (10:49→18:08)
--- NOTE | 2019-12-27 12:06 | PN ---
Psychiatric Progress Note Vital Signs: Vital Signs Period Temp Pulse Resp BP Sys/Narvaez Pulse Ox Last 24 Hr 97.1 F-99.3 F 78-86 18-18 108-130/70-78 Date of Session: 12/27/19 Chief Complaint:: " Can i get my doxepin." HPI: Patient admitted to for heroin, crack/cocaine, and nicotine dependence. ROS: Patient is coherent, alert + oriented X3 Current Medications: Active Medications Generic Name Dose Route Start Last Admin Trade Name Freq PRN Reason Stop Dose Admin Acetaminophen 650 mg 12/25/19 19:42 Tylenol - PO Q6H PRN PAIN LEVEL 4 - 6 Acetaminophen 650 mg 12/25/19 19:42 Tylenol - PO Q6H PRN FEVER Al Hydroxide/Mg Hydroxide 30 ml 12/25/19 19:42 12/27/19 10:07 Mylanta Oral Suspension - PO 30 ml Q6H PRN Administration DYSPEPSIA Albuterol Sulfate 2 puff 12/25/19 19:44 Ventolin Hfa Inhaler - IH Q4H PRN SHORT OF BREATH/WHEEZING Bismuth Subsalicylate 524 mg 12/25/19 19:42 Pepto-Bismol - PO Q1H PRN DIARRHEA Budesonide/Formoterol Fumarate 2 puff 12/25/19 22:00 12/27/19 10:03 Symbicort 160/4.5mcg - IH 2 puff BID WENDY Administration Clonidine 0.1 mg 12/25/19 19:42 12/27/19 07:26 Catapres - PO 12/27/19 23:59 0.1 mg Q4H PRN Administration Withdrawal Symptoms Colloidal Oatmeal 1 applic 12/25/19 19:48 12/26/19 12:49 Aveeno Soap - TP 1 bar DAILY PRN Administration HYGEINE Diazepam 5 mg 12/26/19 09:28 12/27/19 07:26 Valium - PO 12/27/19 23:59 5 mg Q4H PRN Administration WITHDRAWAL(CONT SUBST) Diazepam 5 mg 12/28/19 00:01 Valium - PO 12/28/19 23:59 Q6H PRN WITHDRAWAL(CONT SUBST) Diazepam 5 mg 12/26/19 09:30 Valium - PO 12/29/19 23:59 Q8H PRN WITHDRAWAL(CONT SUBST) Eucalyptus/Menthol/Phenol/Sorbitol 1 each 12/25/19 19:42 Cepastat Lozenge - MM 12/31/19 19:43 Q4H PRN SORE THROAT Famotidine 20 mg 12/25/19 22:00 12/27/19 10:04 Pepcid - PO 20 mg BID WENDY Administration Hydroxyzine Pamoate 25 mg 12/25/19 19:42 12/27/19 10:49 Vistaril - PO 12/31/19 19:43 25 mg Q6H PRN Administration For Anxiety Ibuprofen 400 mg 12/25/19 19:42 Motrin - PO Q6H PRN PAIN LEVEL 1 - 3 Magnesium Citrate 300 ml 12/25/19 19:42 Citroma - PO Q48H PRN CONSTIPATION Magnesium Hydroxide 30 ml 12/25/19 19:42 Milk Of Magnesia - PO PRN PRN CONSTIPATION Melatonin 5 mg 12/25/19 19:42 12/26/19 22:22 Melatonin PO 5 mg HS PRN Administration INSOMNIA Methadone HCl 10 mg/ Methadone 15 mg 12/28/19 10:00 HCl 5 mg PO 12/28/19 10:01 ONCE ONE Methadone HCl 5 mg 12/30/19 06:00 Dolophine - PO 12/30/19 06:01 ONCE@0600 ONE Methadone HCl 10 mg 12/29/19 10:00 Dolophine - PO 12/29/19 10:01 ONCE ONE Methocarbamol 500 mg 12/25/19 19:42 12/27/19 07:29 Robaxin - PO 12/31/19 19:43 500 mg Q6H PRN Administration MUSCLE SPASMS Nicotine 14 mg 12/26/19 10:00 12/27/19 10:06 Nicoderm Patch - TD 14 mg DAILY WENDY Administration Nicotine Polacrilex 4 mg 12/25/19 19:42 12/27/19 09:51 Nicorette Gum - BUC 4 mg Q2H PRN Administration NICOTINE REPLACEMENT RX Multivit/Folic Acid/Iron 1 tab 12/26/19 10:00 12/27/19 10:04 Vitamins (Sjr) - PO 1 tab DAILY WENDY Administration Quetiapine Fumarate 200 mg 12/26/19 22:00 12/26/19 22:21 Seroquel - PO 200 mg HS WENDY Administration Thiamine HCl 100 mg 12/25/19 22:00 12/26/19 22:21 Vitamin B1 - PO 100 mg HS WENDY Administration Triamcinolone Acetonide 1 applic 12/25/19 22:00 12/27/19 10:03 Aristocort 0.1% Cream - TP 1 applic BID WENDY Administration Medication(s) Change(s): Yes. Will order Doxepin 100mg HS. Current Side Effect: No Lab tests ordered: No Lab tests reviewed: Yes Provider note:: Patient seen by Dr. Ariza on 12/26/19. Dr. Ariza note read and appreciated. Patient requesting doxepin for depression and insomnia. Doxepin 100mg was held as EKG was not completed. EKG completed yesterday evening. EKG shows normal sinus rhythm. Will resume Doxepin 100mg HS. Benefits and side effects discussed. Verbal consent given. Total face to face time:: 25 Mental Status Exam - Mental Status Exam Alert and Oriented to: Time, Place, Person Cognitive Function: Good Patient Appearance: Well Groomed Mood: Euthymic Affect: Appropriate Patient Behavior: Appropriate, Cooperative Speech Pattern: Appropriate Voice Loudness: Normal Thought Process: Goal Oriented Thought Disorder: Not Present Hallucinations: Denies Suicidal Ideation: Denies Homicidal Ideation: Denies Insight/Judgement: Poor Sleep: Fair Appetite: Fair Muscle strength/Tone: Normal Gait/Station: Normal Psychiatric Treatment Plan - Problem List (1) Cannabis dependence Current Visit: Yes (2) Cocaine dependence Current Visit: Yes Qualifiers: Substance use status: uncomplicated Qualified Code(s): F14.20 - Cocaine dependence, uncomplicated (3) Nicotine dependence Current Visit: Yes Qualifiers: Nicotine product type: cigarettes Substance use status: in withdrawal Qualified Code(s): F17.213 - Nicotine dependence, cigarettes, with withdrawal (4) Opioid dependence on agonist therapy Current Visit: Yes (5) Substance induced mood disorder Current Visit: Yes (6) Substance-induced sleep disorder Current Visit: No (7) Bipolar disorder Current Visit: Yes Qualifiers: Active/Remission status: in partial remission Most recent bipolar episode type: mixed Qualified Code(s): F31.77 - Bipolar disorder, in partial remission , most recent episode mixed (8) Insomnia Current Visit: Yes
[2019-12-27] MEDS ORDERED: SODIUM PHOSPHATE/NA BIPHOS 133 ML ENEMA PR ONE (14:00)
--- NOTE | 2019-12-27 14:22 | EKG ---
Test Reason : Blood Pressure : / mmHG Vent. Rate : 079 BPM Atrial Rate : 079 BPM P-R Int : 122 ms QRS Dur : 096 ms QT Int : 376 ms P-R-T Axes : 037 044 -17 degrees QTc Int : 431 ms NORMAL SINUS RHYTHM T WAVE ABNORMALITY, CONSIDER INFERIOR ISCHEMIA ABNORMAL ECG WHEN COMPARED WITH ECG OF 01-SEP-2018 20:17, T WAVE INVERSION NOW EVIDENT IN INFERIOR LEADS Confirmed by SHRUTHI VYAS, DONNA ([id number]) on 12/27/2019 2:22:01 PM Referred By: Confirmed By:DONNA HAWKINS MD
[2019-12-27] MEDS ORDERED: DOXEPIN HCL 50 MG CAPSULE PO SCH (22:00)
[2019-12-27] MEDS: QUEtiapine FUMARATE 200 MG TABLET PO SCH (22:04)
[2019-12-27] MEDS: THIAMINE HCL 100 MG TABLET (FP) PO SCH (22:04)
[2019-12-27] MEDS: MELATONIN 5 MG TABLETS PO PRN (22:05)
[2019-12-28] MEDS ORDERED: diazePAM 5 MG TABLET PO PRN (00:01)
[2019-12-28] MEDS: NICOTINE POLACRILEX 4 MG GUM BUC PRN ×4 (02:34→12:53)
[2019-12-28] MEDS: MAG HYDROX/AL HYDROX/SIMETH 30 ML UNIT-DOSE CUP PO PRN (07:35)
[2019-12-28] MEDS ORDERED: METHADONE HCL 5 MG TABLET (FOR DETOX USE ONLY) ONE (09:49)
[2019-12-28] MEDS ORDERED: METHADONE HCL 10 MG TABLET (FOR DETOX USE ONLY) ONE (09:49)
[2019-12-28] MEDS ORDERED: METHADONE (DETOX) 10 MG, METHADONE (DETOX) 5 MG PO ONE (10:00)
--- NOTE | 2019-12-28 10:04 | PN ---
BHS COWS - Scale Resting Pulse: 0= [place] 80 or Below Sweatin=Flushed/Facial Moisture Restless Observation: 1= Difficult to Sit Still Pupil Size: 0= Normal to Room Light Bone or Joint Aches: 0= None Runny Nose/ Eye Tearin= None GI Upset > 30mins: 1= Stomach Cramp Tremor Observation of Outstretched Hands: 1= Tremor [place], Not Seen Yawning Observation: 0= None Anxiety or Irritability: 0= None Goose Flesh Skin: 0=Smooth Skin COWS Score: 5 BHS Progress Note (SOAP) Subjective: Pt complaining of anxiety, asking if she can have Klonopin 1 mg tid. Asking for clonidine as well Objective: 12/28/19 10:03 Laboratory Last Values WBC 8.6 K/mm3 (4.0-10.0) 12/26/19 07:35 RBC 4.45 M/mm3 (3.60-5.2) 12/26/19 07:35 Hgb 13.6 GM/dL (10.7-15.3) 12/26/19 07:35 Hct 40.2 % (32.4-45.2) 12/26/19 07:35 MCV 90.4 fl (80-96) 12/26/19 07:35 MCH 30.7 pg (25.7-33.7) 12/26/19 07:35 MCHC 34.0 g/dl (32.0-36.0) 12/26/19 07:35 RDW 13.8 % (11.6-15.6) 12/26/19 07:35 Plt Count 244 K/MM3 (134-434) 12/26/19 07:35 MPV 8.6 fl (7.5-11.1) 12/26/19 07:35 Sodium 141 mmol/L (136-145) 12/26/19 07:35 Potassium 3.5 mmol/L (3.5-5.1) 12/26/19 07:35 Chloride 108 mmol/L (98-107) H 12/26/19 07:35 Carbon Dioxide 27 mmol/L (21-32) 12/26/19 07:35 Anion Gap 6 MMOL/L (8-16) L 12/26/19 07:35 BUN 16.0 mg/dL (7-18) 12/26/19 07:35 Creatinine 1.0 mg/dL (0.55-1.3) 12/26/19 07:35 Est GFR (CKD-EPI)AfAm 82.76 12/26/19 07:35 Est GFR (CKD-EPI)NonAf 71.41 12/26/19 07:35 Random Glucose 117 mg/dL (74-106) H 12/26/19 07:35 Calcium 8.8 mg/dL (8.5-10.1) 12/26/19 07:35 Total Bilirubin 0.2 mg/dL (0.2-1) 12/26/19 07:35 AST 11 U/L (15-37) L 12/26/19 07:35 ALT 25 U/L (13-61) 12/26/19 07:35 Alkaline Phosphatase 96 U/L (45-117) 12/26/19 07:35 Total Protein 6.8 g/dl (6.4-8.2) 12/26/19 07:35 Albumin 3.4 g/dl (3.4-5.0) 12/26/19 07:35 POC Urine HCG, Qual Negative 12/25/19 18:43 RPR Titer Nonreactive (NONREACTIVE) 12/26/19 07:35 HIV 1&2 Ag/Ab, 4th Gen Non reactive (Non Reactive) 12/26/19 14:00 HIV 1&2 Antibody Screen Cancelled 12/26/19 07:35 HIV P24 Antigen Cancelled 12/26/19 07:35 Vital Signs Temperature 97.8 F 12/28/19 08:31 Pulse Rate 109 H 12/28/19 08:31 Respiratory Rate 18 12/28/19 08:31 Blood Pressure 126/90 12/28/19 08:31 O2 Sat by Pulse Oximetry (%) PE Gnl: WD, WN, mildly anxious Mental status: awake alert, nl language Motor: moves 4 limbs symmetrically Coord: nl gait Assessment: 12/28/19 10:04 1. Opioid use disorder 2. Anxiety Plan: 1. Continue Methadone protocol 2. Pt had 2 different Valium orders, both prn, one for q6h and one for q8h. Discontinued the q6 order. Continue Valium 5 mg q8h prn. 3. will not order clonidine at this time, COWS score low
[2019-12-28] MEDS: TRIAMCINOLONE ACET 0.1% CREAM 15 GM TUBE TP SCH (10:09)
[2019-12-28] MEDS: FAMOTIDINE 20 MG TABLET PO SCH (10:10)
[2019-12-28] MEDS: BUDESONIDE/FORMETEROL FUMARATE 160/4.5 mcg INHALER IH SCH (10:10)
[2019-12-28] MEDS: METHOCARBAMOL 500 MG TABLET PO PRN (10:10)
[2019-12-28] MEDS: PRENATAL VITAMINS W/ FOLIC ACID TABLET (FP) PO SCH (10:10)
[2019-12-28] MEDS: NICOTINE 21 MG/24 HOURS TOPICAL PATCH TD SCH (10:12)
[2019-12-28] MEDS: hydrOXYzine PAMOATE 25 MG CAPSULE (FP) PO PRN (12:51)
[2019-12-28 14:22] VITALS: BP 133/92; PULSE 115; TEMP 96.8
--- NOTE | 2019-12-28 14:56 | DS ---
[facility] Detox Discharge Summary Admission Date: 12/25/19 Discharge Date: 12/28/19 - History Present History: Opioid Dependence Additional Comments: Pt requesting an early discharge, concerned about [facility] being decreased from qid to tid, had a dose at ~6am and then again at ~1pm, 5 mg tab each time. She wants clonidine for BP. BP has been 126/83 this am and at 10 am 126/90 Vital Signs Temperature 96.8 F L 12/28/19 13:08 Pulse Rate 115 H 12/28/19 13:08 Respiratory Rate 12/28/19 13:08 Blood Pressure 133/92 12/28/19 13:08 O2 Sat by Pulse Oximetry (%) - Physical Exam Results Vital Signs: Vital Signs Temperature 96.8 F L 12/28/19 13:08 Pulse Rate 115 H 12/28/19 13:08 Respiratory Rate 12/28/19 13:08 Blood Pressure 133/92 12/28/19 13:08 O2 Sat by Pulse Oximetry (%) Pertinent Admission Physical Exam Findings: 39 yo woman with a PMH of asthma, HTN, depression, admitted for detox from heroin. Pt safely detoxed with methadone PE Gnl: WDWN, in no distress Mental status: normal Gait: normal - Treatment Hospital Course: Detox Protocol Followed, Detoxed Safely (Has plans to go to outpatient [facility]) - Medication Discharge Medications: Ambulatory Orders Dilley Carbonate [Eskalith -] 300 mg PO BID 09/01/18 Ranitidine [Zantac -] 150 mg PO BID #20 tablet 09/04/18 Quetiapine Fumarate [Seroquel -] 400 mg PO HS 09/05/18 Albuterol Sulfate Inhaler - [Ventolin HFA Inhaler -] 2 puff IH Q4H PRN #1 inhaler 01/21/19 Budesonide/Formeterol Fumarate [SYMBICORT 160/4.5mcg -] 2 puff IH BID #1 inhaler 01/21/19 Amitriptyline HCl [Elavil -] 50 mg PO BID 06/29/19 Buspirone HCl 30 mg PO BID 06/29/19 Lurasidone HCl [Latuda -] 75 mg PO BID 06/29/19 Quetiapine Fumarate [Seroquel -] 100 mg PO DAILY 08/23/19 clonazePAM [Klonopin -] 2 mg PO TID 06/29/19 Naloxone HCl [Narcan] 4 mg NS ASDIR PRN #1 spray 12/26/19 - AMA Did Patient Leave Against Medical Advice: No
[2019-12-29] MEDS ORDERED: METHADONE HCL 10 MG TABLET (FOR DETOX USE ONLY) PO ONE (10:00)
[2019-12-30] MEDS ORDERED: METHADONE HCL 5 MG TABLET (FOR DETOX USE ONLY) PO ONE (06:00)
== END 2019-12-28 15:15 | disposition home or self-care (01) | DRG 773 ==
LOC: YASAS 15:14 → Y3N 20:01
PROVIDERS: ADMIT Allergy & Immunology; ATTEND Allergy & Immunology
PROC: HZ2ZZZZ Detoxification Services for Substance Abuse Treatment (ICD-10-PCS; principal; 2019-12-25)
DX: F11.23 Opioid dependence with withdrawal (principal); F14.20 Cocaine dependence, uncomplicated; F12.20 Cannabis dependence, uncomplicated; F17.210 Nicotine dependence, cigarettes, uncomplicated; F19.282 Other psychoactive substance dependence with psychoactive substance-induced sleep disorder; F19.24 Other psychoactive substance dependence with psychoactive substance-induced mood disorder; F31.77 Bipolar disorder, in partial remission, most recent episode mixed; F41.9 Anxiety disorder, unspecified; G47.00 Insomnia, unspecified; I10 Essential (primary) hypertension; J45.909 Unspecified asthma, uncomplicated; K21.9 Gastro-esophageal reflux disease without esophagitis; Z91.5 Personal history of self-harm
CPT/HCPCS: 36415; 80053; 81025; 85027; 86593; 87389; 93005; 93010; J0735

== ENCOUNTER 2021-09-07 15:06 | Inpatient (IN) | payer OTHER ==
[2021-09-07 17:12] VITALS: BMI 26.1
[2021-09-08 03:11] VITALS: TEMP 97.3
[2021-09-08] MEDS ORDERED: IBUPROFEN 400 MG TABLET (FP) PO PRN (03:53)
[2021-09-08] MEDS ORDERED: ACETAMINOPHEN 325 MG TABLET (FP) PO PRN (03:53)
[2021-09-08] MEDS ORDERED: P-EPHED 60MG/TRIPROLIDI 2.5MG TABLET PO PRN (03:53)
[2021-09-08] MEDS ORDERED: MELATONIN 5 MG TABLETS PO PRN (03:53)
[2021-09-08] MEDS ORDERED: MAG HYDROX/AL HYDROX/SIMETH 30 ML UNIT-DOSE CUP PO PRN (03:53)
[2021-09-08] MEDS ORDERED: NICOTINE POLACRILEX 2 MG GUM BC PRN (03:53)
[2021-09-08] MEDS ORDERED: guaiFENesin 200 MG/10 ML 10 ML UNIT-DOSE CUPS PO PRN (03:53)
[2021-09-08] MEDS ORDERED: MAGNESIUM CITRATE 300 ML BOTTLE PO PRN (03:53)
[2021-09-08] MEDS ORDERED: LOPERAMIDE HCL 2 MG CAPSULE PO PRN (03:53)
[2021-09-08] MEDS ORDERED: MAGNESIUM HYDROX 2400MG/30ML ORAL SUSPENSION 30 ML CUP PO PRN (03:53)
[2021-09-08] MEDS: PRENATAL VITAMINS W/ FOLIC ACID TABLET (FP) PO SCH (09:58)
[2021-09-08] MEDS: BACITRACIN 0.9 GM PACKET TP SCH ×2 (09:59→21:25)
[2021-09-08 10:19] LABS: HEMATOCRIT 39.4 % (32.4-45.2); HEMOGLOBIN 13.5 GM/dL (10.7-15.3); MCH 30.9 pg (25.7-33.7); MCHC 34.2 g/dl (32.0-36.0); MEAN CELL VOLUME 90.3 fl (80-96); MEAN PLT VOLUME 8.1 fl (7.5-11.1); PLATELET COUNT 257 10^3/uL (134-434); RBC 4.36 M/mm3 (3.60-5.2); RDW 12.7 % (11.6-15.6); WHITE BLOOD COUNT 8.5 K/mm3 (4.0-10.0)
[2021-09-08 10:31] LABS: ALBUMIN 3.3 g/dl (3.4-5.0); BLOOD UREA NITROGEN 21.7 mg/dL (7-18)
[2021-09-08 10:34] LABS: CREATININE 0.9 mg/dL (0.55-1.3)
[2021-09-08 10:36] LABS: BILIRUBIN,TOTAL 0.5 mg/dL (0.2-1); TOT PROT 6.8 g/dl (6.4-8.2)
[2021-09-08] MEDS: NICOTINE 10 MG CARTRIDGE (INHALER) IH PRN (11:13)
[2021-09-08] MEDS ORDERED: methaDONE HCL 10 MG TABLET PO ONE (11:15)
[2021-09-08] MEDS: LURASIDONE HCL 40 MG TABLET PO SCH (11:48)
[2021-09-08 11:53] LABS: SYPHILIS W/ RPR CONF NON-REACTIVE (NONREACTIVE)
[2021-09-08] MEDS: hydrOXYzine PAMOATE 25 MG CAPSULE (FP) PO PRN (21:25)
[2021-09-08] MEDS ORDERED: DOXEPIN HCL 10 MG CAPSULE PO SCH (22:00)
[2021-09-08] MEDS ORDERED: SUVOREXANT 10 MG TABLET PO PRN (22:00)
[2021-09-08] MEDS ORDERED: THIAMINE HCL 100 MG TABLET (FP) PO SCH (22:00)
[2021-09-09] MEDS ORDERED: methaDONE HCL 40 MG DISPERSABLE TABLET PO ONE (06:00)
[2021-09-09] MEDS ORDERED: methaDONE 40 MG, methaDONE 10 MG PO ONE (06:00)
[2021-09-09 07:31] VITALS: BP 133/92; PULSE 91
[2021-09-09] MEDS: BACITRACIN 0.9 GM PACKET TP SCH (10:09)
[2021-09-09] MEDS: PRENATAL VITAMINS W/ FOLIC ACID TABLET (FP) PO SCH (10:09)
[2021-09-09] MEDS: LURASIDONE HCL 40 MG TABLET PO SCH (10:09)
[2021-09-09] MEDS: hydrOXYzine PAMOATE 25 MG CAPSULE (FP) PO PRN (10:10)
[2021-09-09] MEDS ORDERED: clonazePAM 0.5 MG ODT TABLETS SL PRN (13:59)
[2021-09-09] MEDS ORDERED: clonazePAM 0.5 MG ODT TABLETS SL SCH (14:00)
[2021-09-09] MEDS ORDERED: ALBUTEROL SO4 HFA INHALER IH PRN (14:00)
[2021-09-09] MEDS: NICOTINE 10 MG CARTRIDGE (INHALER) IH PRN (15:16)
[2021-09-09] MEDS ORDERED: BUDESONIDE/FORMETEROL FUMARATE 160/4.5 mcg INHALER IH SCH (22:00)
[2021-09-10] MEDS ORDERED: methaDONE HCL 10 MG TABLET PO SCH ×2 (06:00)
[2021-09-10] MEDS ORDERED: methaDONE 40 MG, methaDONE 20 MG PO ONE (06:00)
[2021-09-10] MEDS ORDERED: methaDONE 40 MG, methaDONE 10 MG PO SCH (06:00)
[2021-09-11] MEDS ORDERED: methaDONE 40 MG, methaDONE 30 MG PO SCH (06:00)
[2021-09-11] MEDS ORDERED: methaDONE 40 MG, methaDONE 20 MG PO ONE (06:00)
[2021-09-11] MEDS ORDERED: methaDONE HCL 10 MG TABLET PO SCH (06:00)
[2021-09-12] MEDS ORDERED: methaDONE HCL 10 MG TABLET PO SCH (06:00)
[2021-09-12] MEDS ORDERED: methaDONE 40 MG, methaDONE 30 MG PO SCH (06:00)
== END 2021-09-09 16:05 | disposition left against medical advice (07) | DRG 770 ==
LOC: YASAS 15:06 → Y5N 09-08 04:10
PROVIDERS: ADMIT Allergy & Immunology; ATTEND Allergy & Immunology
PROC: HZ42ZZZ Group Counseling for Substance Abuse Treatment, Cognitive-Behavioral (ICD-10-PCS; principal; 2021-09-08)
DX: F14.20 Cocaine dependence, uncomplicated (principal); F11.20 Opioid dependence, uncomplicated; F12.20 Cannabis dependence, uncomplicated; F16.20 Hallucinogen dependence, uncomplicated; F17.210 Nicotine dependence, cigarettes, uncomplicated; F31.77 Bipolar disorder, in partial remission, most recent episode mixed; F41.1 Generalized anxiety disorder; F19.24 Other psychoactive substance dependence with psychoactive substance-induced mood disorder; G47.00 Insomnia, unspecified; I10 Essential (primary) hypertension; J45.909 Unspecified asthma, uncomplicated; K21.9 Gastro-esophageal reflux disease without esophagitis; Z91.51 Personal history of suicidal behavior; S09.90XA Unspecified injury of head, initial encounter; W07.XXXA Fall from chair, initial encounter; Y92.238 Other place in hospital as the place of occurrence of the external cause
CPT/HCPCS: 36415; 80053; 81025; 85027; 86780; 86803; 87811; C9803; U0003; U0005

== ENCOUNTER 2021-09-07 19:03 | Emergency (ER) | payer OTHER ==
[2021-09-07 19:29] VITALS: BP 100/62; PULSE 73; TEMP 98.3; BMI 25.8
[2021-09-07] MEDS ORDERED: NALOXONE HCL 0.4 MG/ML VIAL ONE ×2 (20:27→22:09)
[2021-09-07] MEDS: NALOXONE HCL 0.4 MG/ML VIAL IVPUSH PRN ×2 (20:47→22:20)
[2021-09-07] MEDS ORDERED: DIPHTH,PERTUSS(ACELL),TET 0.5 ML DISP.SYRIN IM ONE ×2 (21:58→22:09)
== END 2021-09-08 00:11 ==
LOC: JER 19:03
PROC: 3E0234Z Introduction of Serum, Toxoid and Vaccine into Muscle, Percutaneous Approach (ICD-10-PCS; principal; 2021-09-07)
PROC: 3E033GC Introduction of Other Therapeutic Substance into Peripheral Vein, Percutaneous Approach (ICD-10-PCS; 2021-09-07)
DX: H57.02 Anisocoria (principal); S00.83XA Contusion of other part of head, initial encounter; W07.XXXA Fall from chair, initial encounter
CPT/HCPCS: 70450-TC; 84703; 90471; 90715; 96374; 99284-25